=== PATIENT | male | born 1960 | race Caucasian/White ===

== ENCOUNTER → 2016-10-30 | Outpatient (CLI) | payer OTHER ==
[~2016-10-30] MED LIST: ASPI81TA28 PO; ATOR-22 PO; CARV6.252 PO; CODCAP; DAPA1TAB2 PO; FENO145T26 PO; GLC5 PO; HYDR-5688 PO; LIRA18IN SC; LISI-729 PO; LORA10CA2 PO; LSN5 PO; METF1000 PO; METF1TAB53 PO; MULT-106 PO; MULT-506 PO; OMEG10002 PO; OMEG10007 PO
[2016-10-30 17:07] LABS: URINE APPEARANCE CLEAR (CLEAR); URINE BILIRUBIN NEG (NEG); URINE COLOR YELLOW; URINE NITRITE NEG (NEG); URINE PH 6.5 (4.5-7.5); URINE SPECIFIC GRAVITY 1.031 (1.000-1.030); UROBILINOGEN NEG (NEG); ZZUR CULT IF INDIC CLEAN CATCH NO
[2016-10-30 17:22] LABS: MANUAL MICROSCOPIC REQUIRED? NO; REVIEW REQ? NO
[2016-10-30 17:30] LABS: ALKALINE PHOSPHATASE 99 U/L (45-117); ALT/SGPT 46 U/L (12-78); AST/SGOT 24 U/L (15-37); BLOOD UREA NITROGEN 9 mg/dl (7-18); CALCIUM 8.6 mg/dl (8.5-10.1); CARBON DIOXIDE 27 mmol/L (21-32); CHLORIDE 104 mmol/L (98-107); CHOLESTEROL 169 mg/dl (0-200); CHOLESTEROL/HDL RATIO 7.7; CREATININE 0.73 mg/dl (0.60-1.40); GLUCOSE 189 mg/dl (70-99); HDL CHOLESTEROL 22 mg/dl; PHOSPHORUS 3.1 mg/dl (2.5-4.9); POTASSIUM 4.3 mmol/L (3.5-5.1); SODIUM 139 mmol/L (136-145); TRIGLYCERIDES 815 mg/dl (0-150)
[2016-10-31 06:28] LABS: ESTIMATED AVERAGE GLUCOSE 140 mg/dl; HA1C FLAG Normal (Normal)
[2016-11-01 15:45] LABS: ALBUMIN 4.1 G/DL (3.8-4.8); GAMMA GLOBULIN 1.2 G/DL (0.8-1.7); TOTAL PROTEIN 7.1 G/DL (6.2-8.3)
== END | disposition home or self-care (01) ==
LOC: C.LABBC 14:10
PROVIDERS: ATTEND Internal Medicine Nephrology
DX: R80.9 Proteinuria, unspecified (principal); K76.0 Fatty (change of) liver, not elsewhere classified; E11.9 Type 2 diabetes mellitus without complications

== ENCOUNTER → 2016-12-07 | Day surgery (SDC) | payer OTHER ==
[2016-11-29 08:03] VITALS: BMI 33.0
[~2016-12-07] VITALS: Ht 177.8 cm; Wt 103.6 kg
[~2016-12-07] MED LIST changes: -CODCAP; -DAPA1TAB2 PO; +DAPA1TAB8 PO; +ENDOSCOPIC MARKER 5 ML SYR ONE; -GLC5 PO; +LIDOCAINE HCL 2% 2 ML VIAL (20MG/ML) ONE; -LSN5 PO; -METF1000 PO; +MIDAZOLAM HCL 1 MG/ML 2ML VIAL ONE; -MULT-106 PO; -OMEG10002 PO; +ONDANSETRON INJ 2 MG/ML 2 ML VIAL ONE; +PROPOFOL IV EMULSION 10 MG/ML 20 ML VIAL IV ONE; +SODIUM CHLORIDE 0.9% 500ML 500 ML IV ONE
[2016-12-07 13:42] VITALS: TEMP 36.7
[2016-12-07 13:51] VITALS: Ht 177.8 cm; Wt 103.6 kg
--- NOTE | 2016-12-07 16:32 | Discharge Instructions ---
Endoscopy Patient Instructions Date / Procedure(s) Performed Dec 07, 2016. Colonoscopy Allergy Information Coded Allergies: No Known Drug Allergy (Verified Allergy, Unknown, NKDA, 11/29/16) Discharge Date / Findings Dec 07, 2016. Recto-sigmoid mass Colon polyps Rectal polyp Diverticulosis Medication Instructions OK to resume all medications today as prescribed Reported Home Medications Medications Dose Route/Sig Max Daily Dose Days Date Category Victoza (Liraglutide) 18 Mg/3 Ml Inj 1 Dose SC QAM 11/29/16 Reported Multivitamin (Multivitamins) Tab 1 Tab PO QAM 11/29/16 Reported [place]-3 (Fish Oil) 1 Ea Cap 1 Cap PO BID 11/29/16 Reported Glucophage Ext Rel (Metformin Hcl) 1,000 Mg Tab 1,000 Mg PO BID 11/29/16 Reported Zestril (Lisinopril) 5 Mg Tab 5 Mg PO HS 11/29/16 Reported Farxiga (Dapagliflozin Propanediol) 10 Mg Tab 5 Mg PO QAM 11/29/16 Reported Coreg (Carvedilol) 6.25 Mg Tab 1 Tab PO BID 90 11/29/16 Reported Lipitor (Atorvastatin Calcium) 20 Mg Tab 20 Mg PO QAM 11/29/16 Reported Aspirin Ec (Aspirin) 81 Mg Tab 81 Mg PO QPM 04/21/15 Reported Provider Instructions Activity Restrictions - No exercising or heavy lifting for 24 hours. - Do not drink alcohol the day of the procedure. - Do not drive a car or operate machinery until the day after the procedure. - Do not make any important decisions or sign important papers in 24 hours after the procedure. Following Day: - Return to full activity which may include returning to work/school. Diet Start your diet with liquids and light foods (jello, soup, juice, toast). Then eat your usual diet if not nauseated. Treatment For Common After Affects For mild abdominal pain, bloating, or excessive gas: - Rest - Eat lightly - Lie on right side Follow-Up Information Follow-up with DR FERNANDO SHAKIH as scheduled Anesthesia Information What You Should Know You have had a procedure that required some medicine to reduce anxiety and discomfort. This treatment is called moderate sedation. After receiving the treatment, you may be sleepy, but you will be able to breathe on your own. The effects of the treatment may last for several hours. Follow these instructions along with Activity/Diet recommendations noted above: * Do NOT do anything where dizziness or clumsiness would be dangerous. * Rest quietly at home today, then you can be up and about tomorrow. * Have a responsible person stay with you the rest of today. * You may have had an I.V. today. If so, you may take the dressing off later today. Recommendations Call your doctor if: * Trouble breathing * Continuous vomiting for more than 24 hours * Temperature above 101 degrees * Severe abdominal pain or bloating * Pain not relieved by pain medicine ordered * There is increased drainage or redness from any incision * A large amount of rectal bleeding greater than 2-3 tablespoons. (If you had a polyp/s removed or have hemorrhoids, a small amount of blood - from the rectum is to be expected.) * You have any unanswered questions or concerns. IN THE EVENT OF A SERIOUS EMERGENCY, GO TO THE NEAREST EMERGENCY ROOM Your discharge instructions were prepared by provider Jensen Rosales. Patient Instructions Signature Page Eloy Michaels Patient (or Guardian) Signature/Date: I have read and understand the instructions given to me by my caregivers. Caregiver/RN/Doctor Signature/Date: The above-named patient and/or guardian has received patient instructions on this date. + Original Patient Signature Page (only) stays with chart. Please make copy for patient.
--- NOTE | 2016-12-07 16:32 | GI REPORT ---
Procedure Date: 12/07/2016 3:24 PM Procedure: Colonoscopy Indications: Screening for colorectal malignant neoplasm Medicines: Monitored Anesthesia Care Complications: No immediate complications. Estimated Blood Loss: Estimated blood loss: none. Procedure: Pre-Anesthesia Assessment: - Prior to the procedure, a History and Physical was performed, and patient medications and allergies were reviewed. The patient's tolerance of previous anesthesia was also reviewed. The risks and benefits of the procedure and the sedation options and risks were discussed with the patient. All questions were answered, and informed consent was obtained. Prior Anticoagulants: The patient has taken no previous anticoagulant or antiplatelet agents. ASA Grade Assessment: II - A patient with mild systemic disease. After reviewing the risks and benefits, the patient was deemed in satisfactory condition to undergo the procedure. After I obtained informed consent, the scope was passed under direct vision. Throughout the procedure, the patient's blood pressure, pulse, and oxygen saturations were monitored continuously. The scope was introduced through the anus and advanced to the cecum, identified by appendiceal orifice and ileocecal valve. The colonoscopy was performed without difficulty. The patient tolerated the procedure well. The quality of the bowel preparation was good. The ileocecal valve, appendiceal orifice, and rectum were photographed. Findings: Two sessile polyps were found in the rectum and in the descending colon. The polyps were 5 to 7 mm in size. These polyps were removed with a hot snare. Resection and retrieval were complete. A 14 mm polyp was found in the sigmoid colon. The polyp was pedunculated. The polyp was removed with a hot snare. Resection and retrieval were complete. An ulcerated non-obstructing medium-sized mass was found in the recto-sigmoid colon. The mass was non-circumferential. The mass measured four cm in length. In addition, its diameter measured fifteen mm. Oozing was present. This was biopsied with a cold forceps for histology. Area was tattooed with an injection of 4 mL of Danielle ink at the proximal and distal margin. Multiple small-mouthed diverticula were found in the sigmoid colon. Impression: - Two 5 to 7 mm polyps in the rectum and in the descending colon, removed with a hot snare. Resected and retrieved. - One 14 mm polyp in the sigmoid colon, removed with a hot snare. Resected and retrieved. - Likely malignant tumor in the recto-sigmoid colon. Biopsied. Tattooed. - Diverticulosis in the sigmoid colon. Recommendation: - Resume previous diet. - Continue present medications. - Repeat colonoscopy for surveillance based on pathology results. - Perform a CT scan (computed tomography) of chest with contrast, abdomen with contrast and pelvis with contrast at appointment to be scheduled. - Check hemogram with white blood cell count and platelets, electrolyte panel, PT/INR and CEA in the morning. Jensen Rosales, 12/07/2016 4:31:34 PM This report has been signed electronically. Note Initiated On: 12/07/2016 3:24 PM I attest to the content of the Intraoperative Record and orders documented therein, exceptions below
--- NOTE | 2016-12-07 16:33 | Endo History and Physical ---
History & Physical Date of Service: Dec 07, 2016. Chief Complaint: SCREENING FOR COLON CANCER Referring Physician: DR FENRANDO SHAIKH History of Present Illness 56 yo CM who presents for screening colonoscopy. Past Medical History Diabetes, Heart Disease, Hypertension Past Surgical History Hx Cardiac Surgery: No Hx Internal Defibrillator: No Hx Pacemaker: No Hx Abdominal Surgery: No Hx of Implantable Prosthesis: No Hx Post-Op Nausea and Vomiting: No Hx Cancer Surgery: No Hx Thoracic Surgery: No Hx Orthopedic: No Hx Urinary Tract Surgery: No Family History None Social History Smoking Status: Former Smoker Hx Substance Use: No Hx Alcohol Use: No Allergies Coded Allergies: No Known Drug Allergy (Verified Allergy, Unknown, NKDA, 11/29/16) Current Medications Reported Home Medications Medications Dose Route/Sig Max Daily Dose Days Date Category Victoza (Liraglutide) 18 Mg/3 Ml Inj 1 Dose SC QAM 11/29/16 Reported Multivitamin (Multivitamins) Tab 1 Tab PO QAM 11/29/16 Reported [place]-3 (Fish Oil) 1 Ea Cap 1 Cap PO BID 11/29/16 Reported Glucophage Ext Rel (Metformin Hcl) 1,000 Mg Tab 1,000 Mg PO BID 11/29/16 Reported Zestril (Lisinopril) 5 Mg Tab 5 Mg PO HS 11/29/16 Reported Farxiga (Dapagliflozin Propanediol) 10 Mg Tab 5 Mg PO QAM 11/29/16 Reported Coreg (Carvedilol) 6.25 Mg Tab 1 Tab PO BID 90 11/29/16 Reported Lipitor (Atorvastatin Calcium) 20 Mg Tab 20 Mg PO QAM 11/29/16 Reported Aspirin Ec (Aspirin) 81 Mg Tab 81 Mg PO QPM 04/21/15 Reported Vital Signs Weight (Kilograms): 103.64 Height (Feet): 5 Height (Inches): 10 Date Time Temp Pulse Resp B/P Pulse Ox O2 Delivery O2 Flow Rate FiO2 12/07/16 13:42 36.7 87 20 151/91 100 Room Air Physical Exam General Appearance: WD/WN, no apparent distress Respiratory/Chest: Auscultation: breath sounds normal Cardiovascular: Heart Auscultation: RRR Abdomen: Bowel Sounds: normal Inspection & Palpation: soft, non-distended, no tenderness, guarding & rebound Assessment and Plan Assessment: 56 yo CM who presents for screening colonoscopy. Plan: Proceed with colonoscopy.
[2016-12-07 16:57] VITALS: BP 114/70; PULSE 74; O2SAT 96
--- NOTE | 2016-12-07 17:48 | Anesthesiology Progress Note ---
Anesthesia Post Op Note Date & Time Dec 07, 2016 at 17:47 Vital Signs Pain Intensity: 0 Vital Signs Past 12 Hours Date Time Temp Pulse Resp B/P Pulse Ox O2 Delivery O2 Flow Rate FiO2 12/07/16 16:57 74 20 114/70 96 Room Air 12/07/16 16:42 82 20 116/66 96 Room Air 12/07/16 16:27 80 20 111/67 95 Nasal Cannula 2 12/07/16 13:42 36.7 87 20 151/91 100 Room Air Notes Mental Status: alert / awake / arousable, participated in evaluation Pt Amnestic to Procedure: Yes Nausea / Vomiting: adequately controlled Pain: adequately controlled Airway Patency, RR, SpO2: stable & adequate BP & HR: stable & adequate Hydration State: stable & adequate Anesthetic Complications: no major complications apparent
[2016-12-07 18:30] LABS: BASO % 0.4 %; BASO ABS # 0.03 K/uL (0-0.2); COMPLETE YES; EOS % 2.7 %; HEMATOCRIT 43.1 % (42-52); IG% 0.3 %; LYMPH ABS # 2.16 K/uL (1.2-3.4); MEAN CELL VOLUME 85.5 fL (80-100); MEAN CORPUSCULAR HEMOGLOBIN 31.5 pg (25-34); MEAN CORPUSCULAR HGB CONC 36.9 g/dl (32-36); MEAN PLATELET VOLUME 10.4 fL (7.4-10.4); MONO % 9.3 %; NEUT % 55.3 %; PLATELET COUNT 161 K/uL (130-400); RED BLOOD COUNT 5.04 M/uL (4.7-6.1); WHITE BLOOD COUNT 6.76 K/uL (4.8-10.8)
[2016-12-07 18:54] LABS: BUN/CREATININE RATIO 12.2 (10-20); CREATININE 0.71 mg/dl (0.60-1.40); POTASSIUM 4.2 mmol/L (3.5-5.1)
[2016-12-07 18:57] LABS: ALB/GLOB RATIO 0.9 (0.9-2)
== END | disposition home or self-care (01) ==
LOC: C.GI 13:18
PROVIDERS: ATTEND Internal Medicine
DX: C19 Malignant neoplasm of rectosigmoid junction (principal); D12.4 Benign neoplasm of descending colon; D12.5 Benign neoplasm of sigmoid colon; K57.30 Diverticulosis of large intestine without perforation or abscess without bleeding; E11.9 Type 2 diabetes mellitus without complications; I10 Essential (primary) hypertension; I51.9 Heart disease, unspecified; Z87.891 Personal history of nicotine dependence

== ENCOUNTER → 2016-12-18 | Outpatient (CLI) | payer OTHER ==
[~2016-12-18] MED LIST changes: -ENDOSCOPIC MARKER 5 ML SYR ONE; -FENO145T26 PO; -LIDOCAINE HCL 2% 2 ML VIAL (20MG/ML) ONE; -MIDAZOLAM HCL 1 MG/ML 2ML VIAL ONE; -ONDANSETRON INJ 2 MG/ML 2 ML VIAL ONE; +OPTIRAY 320 IV PRN; -PROPOFOL IV EMULSION 10 MG/ML 20 ML VIAL IV ONE; -SODIUM CHLORIDE 0.9% 500ML 500 ML IV ONE
--- NOTE | 2016-12-18 12:13 | DIAGNOSTIC IMAGING REPORT ---
ABDOMEN AND PELVIS CT WITH IV AND ORAL CONTRAST CT DOSE: 1513.77 mGy.cm HISTORY: Carcinoma C19 Rectosigmoid cancer TECHNIQUE: Multiaxial CT images of the abdomen and pelvis were performed following the use of intravenous and oral contrast. COMPARISON STUDY: None. FINDINGS: Lung bases are clear. Liver is uniform throughout. Spleen and kidneys enhance uniformly. Pancreas is unremarkable. Bowel pattern within the abdomen is nonobstructive. The pelvis shows mild thickening of the wall of the rectosigmoid. There is no evidence for abscess collection or obstruction. Bladder is midline. IMPRESSION: Mild wall thickening of the rectosigmoid. Otherwise negative abdomen and pelvis. Electronically signed by: Derian Lujan M.D. 12/18/2016 12:11 PM Dictated Date/Time: 12/18/2016 12:08 PM
--- NOTE | 2016-12-18 12:27 | DIAGNOSTIC IMAGING REPORT ---
CHEST CT WITH CONTRAST CT DOSE: HISTORY: Rectosigmoid mass. Assess for metastatic disease. TECHNIQUE: Multiaxial CT images of the chest were performed following the intravenous administration of contrast. COMPARISON: None. FINDINGS: The central airways are patent. No pleural effusions. No pneumothorax. Small patchy groundglass density within the left lung apex adjacent to the aortic arch on image 64 favors mild scarring or atelectasis. No suspicious pulmonary nodules. No mediastinal or hilar lymphadenopathy. Normal caliber thoracic aorta. The heart is normal in size. Subcentimeter right anterior diaphragmatic lymph nodes do not meet CT criteria for pathologic involvement. No lytic or blastic osseous lesions. IMPRESSION: No evidence for metastatic disease within the chest Electronically signed by: Osmar Willis M.D. 12/18/2016 12:25 PM Dictated Date/Time: 12/18/2016 12:18 PM
== END | disposition home or self-care (01) ==
LOC: C.CTS 09:39
PROVIDERS: ATTEND Internal Medicine
DX: C19 Malignant neoplasm of rectosigmoid junction (principal)

== ENCOUNTER → 2016-12-30 | Outpatient (CLI) | payer OTHER ==
[~2016-12-30] MED LIST changes: -OPTIRAY 320 IV PRN
== END | disposition home or self-care (01) ==
LOC: C.CPL 11:10
PROVIDERS: ATTEND Surgery
DX: C19 Malignant neoplasm of rectosigmoid junction (principal); E11.9 Type 2 diabetes mellitus without complications; I10 Essential (primary) hypertension

== ENCOUNTER 2017-01-04 07:57 | Inpatient (IN) | payer OTHER ==
[2016-12-25 09:48] VITALS: BMI 33.0
[2017-01-04] VITALS (9 sets, daily range): BP systolic 122–144; BP diastolic 78–87; PULSE 79–105; TEMP 36.6–37.1; O2SAT 94–96; Ht 177.8 cm; Wt 103.6 kg
[~2017-01-04] VITALS: Ht 177.8 cm; Wt 103.6 kg
[~2017-01-04 07:57] MED LIST changes: +CEFAZOLIN 2000 MG/60 ML D5W IV SCH; +HEPARIN SOD 5000 UNIT/0.5 ML CARP SQ SCH; -HYDR-5688 PO; +LACTATED RINGER'S 1000ML 1,000 ML IV SCH; -LORA10CA2 PO
[2017-01-04] MEDS ORDERED: GLYCOPYRROLATE INJ 0.2 MG/ML VIAL ONE ×2 (08:43→13:41)
[2017-01-04] MEDS ORDERED: LIDOCAINE HCL 2% 2 ML VIAL (20MG/ML) ONE (08:43)
[2017-01-04] MEDS ORDERED: FENTANYL CITRATE INJ 50 MCG/1 ML 2 ML VIAL ONE (08:43)
[2017-01-04] MEDS ORDERED: NEOSTIGMINE METHYLSULFATE 5 MG/5 ML SYR ONE (08:43)
[2017-01-04] MEDS ORDERED: DEXAMETHASONE SOD INJ 4 MG/ML VIAL ONE (08:43)
[2017-01-04] MEDS ORDERED: ONDANSETRON INJ 2 MG/ML 2 ML VIAL ONE ×2 (08:43→13:37)
[2017-01-04] MEDS ORDERED: MIDAZOLAM HCL 1 MG/ML 2ML VIAL ONE (08:43)
[2017-01-04] MEDS ORDERED: ROCURONIUM BROMIDE 10 MG/ML 5 ML VIAL ONE ×3 (08:43→12:28)
[2017-01-04] MEDS ORDERED: PROPOFOL IV EMULSION 10 MG/ML 20 ML VIAL IV ONE (08:43)
[2017-01-04] MEDS ORDERED: NURSING VERBAL MED ORDER STA (09:02)
[2017-01-04] MEDS ORDERED: MoRPHine SULFATE 10 MG/ML CARP/VIAL IV PRN (09:15)
[2017-01-04] MEDS ORDERED: ONDANSETRON INJ 2 MG/ML 2 ML VIAL IV PRN ×2 (09:15→13:45)
[2017-01-04] MEDS ORDERED: FENTANYL CITRATE INJ 50 MCG/1 ML 2 ML VIAL IV PRN (09:15)
[2017-01-04] MEDS ORDERED: CARVEDILOL 6.25 MG TAB PO ONE (09:15)
[2017-01-04] MEDS ORDERED: ATROPINE SULFATE 0.1 MG/ML 5ML SYR IV PRN (09:15)
[2017-01-04] MEDS ORDERED: EpHEDrine SULFATE INJ 50 MG/ML AMP IV PRN (09:15)
--- NOTE | 2017-01-04 09:32 | History & Physical Bridge Note ---
H&P Re-Evaluation Bridge Note: I have examined the patient, reviewed the History & Physical and in the interval since the performance of the History & Physical I have noted the following changes of clinical significance: No changes noted
[2017-01-04] MEDS ORDERED: BUPIVACAINE/EPINEPHRINE 0.5% MPF 1:200,000 30 ML VIAL ONE (09:33)
[2017-01-04] MEDS ORDERED: HYDROmorphone INJ 2 MG/ML SYR/VIAL ONE (09:50)
[2017-01-04] MEDS ORDERED: EpHEDrine SULFATE INJ 50 MG/ML AMP ONE (10:20)
[2017-01-04] MEDS ORDERED: PHENYLEPHRINE 100MCG/ML 5ML SYR ONE (10:23)
[2017-01-04] MEDS ORDERED: NALOXONE HCL 0.4 MG/1 ML VIAL/CARP IV PRN (13:45)
[2017-01-04] MEDS ORDERED: GLUCAGON FOR INJ 1 MG VIAL SQ PRN (13:45)
[2017-01-04] MEDS ORDERED: DEXTROSE 50% 50 ML SYR IV PRN (13:45)
[2017-01-04] MEDS ORDERED: GLUCOSE 40% GEL 15 GM TUBE PO PRN (13:45)
[2017-01-04] MEDS ORDERED: GLUCOSE 10 TABS/TUBE PO PRN (13:45)
[2017-01-04] MEDS: HYDROmorphone HCL 0.5MG/ML 50 ML CASSETTE IV PRN ×3 (14:33→22:54)
--- NOTE | 2017-01-04 15:22 | Anesthesiology Progress Note ---
Anesthesia Post Op Note Date & Time January 04, 2017 at 15:22 Vital Signs Pain Intensity: 0 Vital Signs Past 12 Hours Date Time Temp Pulse Resp B/P Pulse Ox O2 Delivery O2 Flow Rate FiO2 01/04/17 15:07 95 13 01/04/17 15:07 95 13 95 01/04/17 15:05 131/81 01/04/17 15:02 94 13 95 01/04/17 15:02 94 13 01/04/17 15:00 139/90 01/04/17 14:57 94 12 01/04/17 14:57 93 12 95 01/04/17 14:57 36.9 90 16 139/90 97 Nasal Cannula 2 01/04/17 14:55 135/86 01/04/17 14:52 92 14 01/04/17 14:52 92 14 94 01/04/17 14:50 134/85 01/04/17 14:47 96 13 01/04/17 14:47 96 13 95 01/04/17 14:45 131/86 01/04/17 14:42 96 15 01/04/17 14:42 96 15 92 01/04/17 14:41 97 16 01/04/17 14:41 97 16 92 01/04/17 14:40 135/85 01/04/17 14:36 92 11 01/04/17 14:36 92 11 98 01/04/17 14:35 133/82 01/04/17 14:31 93 15 01/04/17 14:31 93 15 96 01/04/17 14:30 116/85 01/04/17 14:26 95 16 94 01/04/17 14:26 95 16 01/04/17 14:25 134/82 01/04/17 14:21 96 16 93 01/04/17 14:21 96 16 01/04/17 14:20 128/83 01/04/17 14:17 99 19 01/04/17 14:17 98 19 96 01/04/17 14:15 145/87 01/04/17 14:12 102 17 95 01/04/17 14:12 102 17 01/04/17 14:10 132/88 01/04/17 14:07 99 14 01/04/17 14:07 99 14 129/89 97 01/04/17 14:07 36.7 99 14 129/89 97 Mask 10 01/04/17 08:43 36.6 79 20 122/86 96 Room Air Notes Mental Status: alert / awake / arousable, participated in evaluation Pt Amnestic to Procedure: Yes Nausea / Vomiting: adequately controlled Pain: adequately controlled Airway Patency, RR, SpO2: stable & adequate BP & HR: stable & adequate Hydration State: stable & adequate Anesthetic Complications: no major complications apparent
[2017-01-04] MEDS ORDERED: INSULIN ASPART 100 UNITS/ML 3 ML PEN SC SCH (16:00)
[2017-01-04] MEDS: LACTATED RINGER'S 1000ML 1,000 ML IV SCH (17:13)
[2017-01-04] MEDS: CEFAZOLIN SOD 2000 MG in DEXTROSE 5% 50ML IV SCH (17:14)
[2017-01-04] MEDS: SODIUM CHLORIDE 0.9% 1000ML 1,000 ML IV SCH (17:14)
[2017-01-04] MEDS ORDERED: CEFAZOLIN IV 2,000 MG/60 ML D5W IV SCH (18:00)
--- NOTE | 2017-01-04 18:13 | OPERATIVE REPORT ---
DATE OF OPERATION: 01/04/2017 PREOPERATIVE DIAGNOSIS: Colorectal carcinoma. POSTOPERATIVE DIAGNOSIS: Same. PROCEDURE PERFORMED: Laparoscopy with conversion to an open procedures low anterior resection with primary anastomosis and intraoperative sigmoidoscopy. SURGEON: [place] DO MOBILE DEVICE DEVELOPER: Dario Turner PA-C ESTIMATED BLOOD LOSS: Approximately 100 mL. COMPLICATIONS: No immediate. ANESTHESIA: General. DISPOSITION: The patient tolerated the procedure well. DESCRIPTION OF PROCEDURE: After informed consent was obtained, the patient was taken to the operating suite and placed in supine position. After successful intubation, a Boudreaux catheter was placed and the abdomen and perineum were sterilely prepped and draped in usual fashion. We began with a periumbilical incision with an 11 blade scalpel and carried it down through the soft tissue using electrocautery. The anterior rectus fascia was opened using electrocautery and two #0 Vicryl stay sutures were placed. Peritoneum was elevated with hemostats and incised under direct vision using a Metzenbaum scissor. A finger sweep was performed. A 12 mm Liliam trocar was placed. The abdomen was insufflated to 18 mmHg. Laparoscope was inserted. A right lower quadrant 12 mm trocar and a right mid abdominal 5 mm trocar were initially placed. Shortly thereafter, we placed a left lower quadrant 5 mm trocar as well. I should mention that after intubation the patient had been placed in a low lithotomy position in the [facility]. We began by examining the sigmoid colon. There were some adhesive bands to the left side wall which we took down using the Harmonic scalpel. After we did this, we then mobilized the sigmoid colon and worked towards the rectosigmoid region. The blue ink tattoo was very difficult to see. We were eventually able find a small spot on the left lateral side. It was unclear to us whether this was a proximal or distal ink dakota as dictated by gastroenterology. Nonetheless, we went ahead and created a small window in the sigmoid mesentery and transected the colon well away from the tattoo dakota using VALENTIN purple cartridge stapler. We then used blunt dissection as well as Harmonic scalpel to take down the lateral peritoneal reflections on both sides heading down towards the rectosigmoid junction. We did use both VALENTIN 60 mm gleason cartridge as well as Harmonic scalpel to take down the mesentery, staying as low as possible so that we could get good lymph node resection. We continued distally down towards the rectum and we were able to come around anteriorly and take down the peritoneal reflection and continue working down towards the rectum itself. After doing all this and mobilizing the entire rectosigmoid, we realized that the mesentery and bowel were going to be too thick to allow incorporation of the laparoscopic VALENTIN for transection. This coupled with the fact that we were unclear of the exact tumor location in the tattoo gaitan, we decided at this point to go ahead and make a small laparotomy. We took out the laparoscopic equipment and made a small lower midline incision with a 10 blade scalpel and used electrocautery to carry it down through the soft tissue and opened the fascia. We did use a Bookwalter retractor. Once we were able to manually palpate the lesion, it was actually much more distal than we had anticipated. It was really more of a rectal lesion than a sigmoid lesion. We continued to take down the lateral pedicles using Harmonic scalpel. We were able to get in the presacral fascia and bluntly dissect trying not to touch the tumor any more than necessary. At this point, we got a colonoscope and performed the intraoperative sigmoidoscopy. We were able to see the rather large lesion. Because of his body habitus and the low nature, this did make the dissection somewhat difficult. We continued to dissect anteriorly and laterally as well as posteriorly the whole way down as far as we could possibly see from the abdominal portion. Eventually, I was able to use a laparoscopic VALENTIN with multiple purple cartridge rod to transect the rectum distal to the palpable mass. Again because of his body habitus and the location of lesion, it really was impossible to get any more distal than this without probably committing him to an APR with a permanent colostomy. We had not discussed this with him nor we were prepared to perform this. We were able to remove the specimen and I opened it on the back table. We did have mucosal margins distal to the mass, although certainly microscopically, it was unclear whether these are positive. Nonetheless, it really would be impossible at this point to resect more distally, again without performing some APR type of procedure. He will require completion APR should the margins be positive for curative resection. Nonetheless, we did have visible mucosal margins. We only opened it on the back table, probably about 2-2.5 cm. At this point, we thoroughly irrigated the pelvis. We prepared the proximal colon and using sizers estimated that we would need a 28 circular EEA. We took off the staple line and placed a 2-0 silk pursestring. We placed the anvil into the colotomy and then secured the pursestring. We then were able to place the EEA handle into the small rectal stump. Visualization was difficult, but we were eventually able to get the spike to deploy slightly anteriorly to the staple line. We then connected the handle to the anvil and secured them together prior to creating a circular colorectal anastomosis. When we removed the handle, both donuts were intact and we did send the distal one for margins. We then submerged the anastomosis in water and I clamped the proximal colon and we performed a sigmoidoscopy once again. The anastomosis appeared intact without bleeding. There was no evidence of any air leak. There was no evidence of any residual tumor. We then irrigated the pelvis a final time. I placed a #10 flat Jr-Orona drain into the pelvis and brought out through one of the previous port sites. There was adequate hemostasis at the end of this procedure. We closed the fascia using #1 PDS starting at either pole and running them to the midline. We irrigated the soft tissue and then closed the skin using skin rod. The drain was secured using 0 Vicryl. The laparoscopic trocar sites were closed using rod as well. A silver dressing was applied. The patient was awakened, extubated, and transferred to recovery in stable condition. I attest to the content of the Intraoperative Record and any orders documented therein. Any exceptio ns are noted below.
[2017-01-04] MEDS: CARVEDILOL 6.25 MG TAB PO SCH (21:08)
[2017-01-04] MEDS ORDERED: NURSING VERBAL MED ORDER ONE (21:15)
[2017-01-05] VITALS (10 sets, daily range): BP systolic 117–171; BP diastolic 72–96; PULSE 83–99; TEMP 36.9–37.8; O2SAT 90–95
[2017-01-05] MEDS: INSULIN ASPART 100 UNITS/ML 3 ML PEN SC SCH ×4 (00:25→18:00)
[2017-01-05] MEDS: LACTATED RINGER'S 1000ML 1,000 ML IV SCH ×4 (00:26→20:00)
[2017-01-05] MEDS: CEFAZOLIN SOD 2000 MG in DEXTROSE 5% 50ML IV SCH ×2 (02:59→10:37)
[2017-01-05 07:13] LABS: BASO % 0.1 %; BASO ABS # 0.01 K/uL (0-0.2); COMPLETE YES; EOS % 0.2 %; HEMATOCRIT 39.4 % (42-52); IG% 0.1 %; LYMPH % 16.9 %; LYMPH ABS # 1.81 K/uL (1.2-3.4); MEAN CELL VOLUME 87.4 fL (80-100); MEAN CORPUSCULAR HEMOGLOBIN 30.4 pg (25-34); MEAN CORPUSCULAR HGB CONC 34.8 g/dl (32-36); MEAN PLATELET VOLUME 10.6 fL (7.4-10.4); MONO % 10.7 %; PLATELET COUNT 170 K/uL (130-400); RED BLOOD COUNT 4.51 M/uL (4.7-6.1)
[2017-01-05] MEDS: HYDROmorphone HCL 0.5MG/ML 50 ML CASSETTE IV PRN ×3 (07:18→22:52)
--- NOTE | 2017-01-05 07:39 | Surgery Progress Note ---
Surgery Progress Note Date of Service January 05, 2017. Subjective Post OP Day: 1 + diet (sips), + feeling well, No flatus, No nausea Objective Vital Signs: Date Time Temp Pulse Resp B/P Pulse Ox O2 Delivery O2 Flow Rate FiO2 01/05/17 05:41 93 Room Air 01/05/17 04:00 37.0 90 16 117/72 95 Nasal Cannula 2.0 01/04/17 23:27 36.6 96 17 124/81 94 Nasal Cannula 2.0 01/04/17 23:15 Nasal Cannula 2.0 01/04/17 18:50 37.0 100 16 138/87 94 01/04/17 18:26 96 Nasal Cannula 2.0 01/04/17 18:22 96 Nasal Cannula 2.0 01/04/17 17:31 37.1 105 16 128/79 95 Nasal Cannula 2.0 01/04/17 16:30 37.0 99 16 144/84 95 Nasal Cannula 2.0 01/04/17 16:00 37.1 98 16 138/86 96 Nasal Cannula 2.0 01/04/17 15:30 36.9 96 16 127/78 96 Nasal Cannula 2.0 01/04/17 15:20 126/84 01/04/17 15:18 96 14 95 01/04/17 15:18 96 14 01/04/17 15:15 132/84 01/04/17 15:13 96 12 01/04/17 15:13 96 12 95 01/04/17 15:10 122/88 01/04/17 15:08 96 13 95 01/04/17 15:08 96 13 01/04/17 15:07 95 13 01/04/17 15:07 95 13 95 01/04/17 15:05 131/81 01/04/17 15:02 94 13 95 01/04/17 15:02 94 13 01/04/17 15:00 139/90 01/04/17 14:57 94 12 01/04/17 14:57 93 12 95 01/04/17 14:57 36.9 90 16 139/90 97 Nasal Cannula 2 01/04/17 14:55 135/86 01/04/17 14:52 92 14 01/04/17 14:52 92 14 94 01/04/17 14:50 134/85 01/04/17 14:47 96 13 01/04/17 14:47 96 13 95 01/04/17 14:45 131/86 01/04/17 14:42 96 15 01/04/17 14:42 96 15 92 01/04/17 14:41 97 16 01/04/17 14:41 97 16 92 01/04/17 14:40 135/85 01/04/17 14:36 92 11 01/04/17 14:36 92 11 98 01/04/17 14:35 133/82 01/04/17 14:31 93 15 01/04/17 14:31 93 15 96 01/04/17 14:30 116/85 01/04/17 14:26 95 16 94 01/04/17 14:26 95 16 01/04/17 14:25 134/82 01/04/17 14:21 96 16 93 01/04/17 14:21 96 16 01/04/17 14:20 128/83 01/04/17 14:17 99 19 01/04/17 14:17 98 19 96 01/04/17 14:15 145/87 01/04/17 14:12 102 17 95 01/04/17 14:12 102 17 01/04/17 14:10 132/88 01/04/17 14:07 99 14 01/04/17 14:07 99 14 129/89 97 01/04/17 14:07 36.7 99 14 129/89 97 Mask 10 01/04/17 08:43 36.6 79 20 122/86 96 Room Air Physical Exam: RC drainage (25 cc), urine output (950) Abdomen: soft, + distended (minimal) Incision(s): intact (dressing) Laboratory Results: Results Past 24 Hours Test 01/04/17 08:40 01/04/17 14:28 01/04/17 14:31 01/04/17 16:18 Range/Units Bedside Glucose 181 252 252 70-99 mg/dl Creatinine 1.00 0.60-1.40 mg/dl Est Creatinine Clear Calc Drug Dose 101.8 ml/min Estimated GFR () 98.5 Estimated GFR (Non- 84.9 Test 01/04/17 16:45 01/04/17 20:42 01/04/17 23:56 01/05/17 06:34 Range/Units Bedside Glucose 254 204 184 70-99 mg/dl White Blood Count 10.70 4.8-10.8 K/uL Red Blood Count 4.51 4.7-6.1 M/uL Hemoglobin 13.7 14.0-18.0 g/dL Hematocrit 39.4 42-52 % Mean Corpuscular Volume 87.4 80-100 fL Mean Corpuscular Hemoglobin 30.4 25-34 pg Mean Corpuscular Hemoglobin Concent 34.8 32-36 g/dl Platelet Count 170 130-400 K/uL Mean Platelet Volume 10.6 7.4-10.4 fL Neutrophils (%) (Auto) 72.0 % Lymphocytes (%) (Auto) 16.9 % Monocytes (%) (Auto) 10.7 % Eosinophils (%) (Auto) 0.2 % Basophils (%) (Auto) 0.1 % Neutrophils # (Auto) 7.71 1.4-6.5 K/uL Lymphocytes # (Auto) 1.81 1.2-3.4 K/uL Monocytes # (Auto) 1.14 0.11-0.59 K/uL Eosinophils # (Auto) 0.02 0-0.5 K/uL Basophils # (Auto) 0.01 0-0.2 K/uL RDW Standard Deviation 43.7 36.4-46.3 fL RDW Coefficient of Variation 13.5 11.5-14.5 % Immature Granulocyte % (Auto) 0.1 % Immature Granulocyte # (Auto) 0.01 0.00-0.02 K/uL Assessment & Plan s/p LAR UOP good, would keep canas for today given low resection cont [employer]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
[2017-01-05 07:48] LABS: BUN/CREATININE RATIO 20.2 (10-20); CALCIUM 8.8 mg/dl (8.5-10.1); CREATININE 0.84 mg/dl (0.60-1.40)
--- NOTE | 2017-01-05 08:09 | Anesthesiology Progress Note ---
Anesthesia Post Op Note Date & Time January 05, 2017 at 08:10 Vital Signs Pain Intensity: 0.0 Vital Signs Past 12 Hours Date Time Temp Pulse Resp B/P Pulse Ox O2 Delivery O2 Flow Rate FiO2 01/05/17 07:37 36.9 89 17 118/77 93 Room Air 01/05/17 05:41 93 Room Air 01/05/17 04:00 37.0 90 16 117/72 95 Nasal Cannula 2.0 01/04/17 23:27 36.6 96 17 124/81 94 Nasal Cannula 2.0 01/04/17 23:15 Nasal Cannula 2.0 Notes Mental Status: alert / awake / arousable, participated in evaluation Pt Amnestic to Procedure: Yes Nausea / Vomiting: adequately controlled Pain: adequately controlled Airway Patency, RR, SpO2: stable & adequate BP & HR: stable & adequate Hydration State: stable & adequate Anesthetic Complications: no major complications apparent
[2017-01-05] MEDS: PANTOprazole INJ 40 MG in SYRINGE 0 ML IV SCH (09:28)
[2017-01-05] MEDS: CARVEDILOL 6.25 MG TAB PO SCH ×2 (09:29→20:41)
[2017-01-05] MEDS: ENOXAPARIN 40 MG/0.4 ML SYR SQ SCH (09:29)
[2017-01-05] MEDS: SODIUM CHLORIDE 0.9% 1000ML 1,000 ML IV SCH (12:55)
[2017-01-05] MEDS ORDERED: NURSING VERBAL MED ORDER ONE (22:00)
[2017-01-05] MEDS ORDERED: ACETAMINOPHEN 325 MG TAB PO PRN (22:15)
[2017-01-06] VITALS (7 sets, daily range): BP systolic 118–161; BP diastolic 62–90; PULSE 83–100; TEMP 37–38; O2SAT 92
[2017-01-06] MEDS: INSULIN ASPART 100 UNITS/ML 3 ML PEN SC SCH ×4 (00:02→18:14)
[2017-01-06] MEDS: LACTATED RINGER'S 1000ML 1,000 ML IV SCH ×4 (01:50→21:12)
[2017-01-06 06:11] LABS: BASO % 0.2 %; BASO ABS # 0.02 K/uL (0-0.2); COMPLETE YES; EOS % 0.4 %; HEMATOCRIT 38.2 % (42-52); IG% 0.2 %; LYMPH % 15.9 %; LYMPH ABS # 1.51 K/uL (1.2-3.4); MONO % 13.2 %; NEUT % 70.1 %; PLATELET COUNT 153 K/uL (130-400); RED BLOOD COUNT 4.34 M/uL (4.7-6.1); WHITE BLOOD COUNT 9.51 K/uL (4.8-10.8)
[2017-01-06 06:42] LABS: BUN/CREATININE RATIO 19.6 (10-20); CREATININE 0.79 mg/dl (0.60-1.40)
[2017-01-06] MEDS: HYDROmorphone HCL 0.5MG/ML 50 ML CASSETTE IV PRN ×3 (06:48→19:35)
[2017-01-06] MEDS: PANTOprazole INJ 40 MG in SYRINGE 0 ML IV SCH (07:54)
[2017-01-06] MEDS: ENOXAPARIN 40 MG/0.4 ML SYR SQ SCH (07:54)
[2017-01-06] MEDS: CARVEDILOL 6.25 MG TAB PO SCH ×2 (09:46→21:12)
--- NOTE | 2017-01-06 11:48 | Surgery Progress Note ---
Surgery Progress Note Date of Service January 06, 2017. Subjective Post OP Day: 2 + pain controlled, No bowel movement, No flatus, No nausea, No vomiting Objective Vital Signs: Date Time Temp Pulse Resp B/P Pulse Ox O2 Delivery O2 Flow Rate FiO2 01/06/17 11:33 38.0 96 12 118/62 92 Room Air 01/06/17 08:57 92 Room Air 01/06/17 07:43 37.5 100 14 161/90 92 Room Air 01/06/17 07:40 Room Air 01/06/17 03:47 37.2 100 16 156/85 92 Room Air 01/05/17 23:25 Room Air 01/05/17 23:25 153/81 01/05/17 22:58 37.3 97 18 171/96 94 Room Air 01/05/17 20:44 37.3 01/05/17 20:26 37.8 99 16 158/83 90 Room Air 01/05/17 17:08 37.0 01/05/17 16:30 Room Air 01/05/17 15:14 37.7 83 16 137/73 93 Room Air Physical Exam: RC drainage (95 cc yesterday, 70 cc last shift, serosanguinous) Abdomen: non distended, soft, + abnormal bowel sounds (some present but decreased) Incision(s): clean, dry, intact, no erythema Laboratory Results: Results Past 24 Hours Test 01/05/17 11:54 01/05/17 18:08 01/05/17 23:47 01/06/17 05:18 Range/Units Bedside Glucose 209 136 162 70-99 mg/dl White Blood Count 9.51 4.8-10.8 K/uL Red Blood Count 4.34 4.7-6.1 M/uL Hemoglobin 13.0 14.0-18.0 g/dL Hematocrit 38.2 42-52 % Mean Corpuscular Volume 88.0 80-100 fL Mean Corpuscular Hemoglobin 30.0 25-34 pg Mean Corpuscular Hemoglobin Concent 34.0 32-36 g/dl Platelet Count 153 130-400 K/uL Mean Platelet Volume 10.0 7.4-10.4 fL Neutrophils (%) (Auto) 70.1 % Lymphocytes (%) (Auto) 15.9 % Monocytes (%) (Auto) 13.2 % Eosinophils (%) (Auto) 0.4 % Basophils (%) (Auto) 0.2 % Neutrophils # (Auto) 6.66 1.4-6.5 K/uL Lymphocytes # (Auto) 1.51 1.2-3.4 K/uL Monocytes # (Auto) 1.26 0.11-0.59 K/uL Eosinophils # (Auto) 0.04 0-0.5 K/uL Basophils # (Auto) 0.02 0-0.2 K/uL RDW Standard Deviation 42.7 36.4-46.3 fL RDW Coefficient of Variation 13.2 11.5-14.5 % Immature Granulocyte % (Auto) 0.2 % Immature Granulocyte # (Auto) 0.02 0.00-0.02 K/uL Sodium Level 140 136-145 mmol/L Potassium Level 4.0 3.5-5.1 mmol/L Chloride Level 104 98-107 mmol/L Carbon Dioxide Level 31 21-32 mmol/L Anion Gap 5.0 3-11 mmol/L Blood Urea Nitrogen 16 7-18 mg/dl Creatinine 0.79 0.60-1.40 mg/dl Est Creatinine Clear Calc Drug Dose 128.9 ml/min Estimated GFR () 118.0 Estimated GFR (Non- 101.8 BUN/Creatinine Ratio 19.6 10-20 Random Glucose 151 70-99 mg/dl Calcium Level 9.0 8.5-10.1 mg/dl Test 01/06/17 05:56 Range/Units Bedside Glucose 174 70-99 mg/dl Assessment & Plan S/P LAR for rectosigmoid carcinoma Stable Peristalsis not yet returned Continue sips and chips for now Encouraged ambulation
[2017-01-06] MEDS: SODIUM CHLORIDE 0.9% 1000ML 1,000 ML IV SCH (13:41)
[2017-01-07] VITALS (8 sets, daily range): BP systolic 137–174; BP diastolic 72–98; PULSE 81–86; TEMP 36.8–37.4; O2SAT 93–96
[2017-01-07] MEDS: INSULIN ASPART 100 UNITS/ML 3 ML PEN SC SCH ×4 (00:46→18:15)
[2017-01-07] MEDS: LACTATED RINGER'S 1000ML 1,000 ML IV SCH ×4 (03:49→23:46)
[2017-01-07 05:58] LABS: BASO % 0.2 %; BASO ABS # 0.02 K/uL (0-0.2); COMPLETE YES; EOS % 1.3 %; HEMATOCRIT 36.3 % (42-52); IG% 0.2 %; LYMPH % 16.2 %; LYMPH ABS # 1.34 K/uL (1.2-3.4); MEAN CELL VOLUME 87.5 fL (80-100); MEAN CORPUSCULAR HEMOGLOBIN 29.9 pg (25-34); MEAN CORPUSCULAR HGB CONC 34.2 g/dl (32-36); MEAN PLATELET VOLUME 9.8 fL (7.4-10.4); MONO % 11.3 %; NEUT % 70.8 %; PLATELET COUNT 137 K/uL (130-400); RED BLOOD COUNT 4.15 M/uL (4.7-6.1); WHITE BLOOD COUNT 8.29 K/uL (4.8-10.8)
[2017-01-07 06:25] LABS: BUN/CREATININE RATIO 21.4 (10-20); CALCIUM 8.9 mg/dl (8.5-10.1); CREATININE 0.68 mg/dl (0.60-1.40); POTASSIUM 3.9 mmol/L (3.5-5.1)
[2017-01-07] MEDS: HYDROmorphone HCL 0.5MG/ML 50 ML CASSETTE IV PRN ×3 (07:19→15:03)
[2017-01-07] MEDS: PANTOprazole INJ 40 MG in SYRINGE 0 ML IV SCH (08:21)
[2017-01-07] MEDS: CARVEDILOL 6.25 MG TAB PO SCH ×2 (08:21→21:18)
[2017-01-07] MEDS: ENOXAPARIN 40 MG/0.4 ML SYR SQ SCH (08:21)
[2017-01-07] MEDS: SODIUM CHLORIDE 0.9% 1000ML 1,000 ML IV SCH (13:09)
--- NOTE | 2017-01-07 15:56 | Surgery Progress Note ---
Surgery Progress Note Date of Service January 07, 2017. Subjective Post OP Day: 3 + flatus, No bowel movement, No nausea, No vomiting Objective Vital Signs: Date Time Temp Pulse Resp B/P Pulse Ox O2 Delivery O2 Flow Rate FiO2 01/07/17 15:03 36.9 84 16 160/91 96 Room Air 01/07/17 12:04 36.9 82 18 168/84 93 Room Air 01/07/17 07:40 Room Air 01/07/17 07:40 155/85 01/07/17 07:00 37.2 85 16 174/98 93 Room Air 01/07/17 03:00 37.4 86 16 151/74 95 Room Air 01/06/17 23:59 Room Air 01/06/17 22:52 37.0 83 16 156/76 92 Room Air 01/06/17 19:31 37.8 93 16 157/88 92 Room Air 01/06/17 16:00 Room Air Physical Exam: RC drainage (190 cc yesterday, 65 cc first 2 shifts today, serous) Abdomen: normal bowel sounds, non distended, soft Incision(s): clean, dry, intact, no erythema Laboratory Results: Results Past 24 Hours Test 01/06/17 18:06 01/07/17 00:14 01/07/17 05:27 01/07/17 06:03 Range/Units Bedside Glucose 203 157 160 70-99 mg/dl White Blood Count 8.29 4.8-10.8 K/uL Red Blood Count 4.15 4.7-6.1 M/uL Hemoglobin 12.4 14.0-18.0 g/dL Hematocrit 36.3 42-52 % Mean Corpuscular Volume 87.5 80-100 fL Mean Corpuscular Hemoglobin 29.9 25-34 pg Mean Corpuscular Hemoglobin Concent 34.2 32-36 g/dl Platelet Count 137 130-400 K/uL Mean Platelet Volume 9.8 7.4-10.4 fL Neutrophils (%) (Auto) 70.8 % Lymphocytes (%) (Auto) 16.2 % Monocytes (%) (Auto) 11.3 % Eosinophils (%) (Auto) 1.3 % Basophils (%) (Auto) 0.2 % Neutrophils # (Auto) 5.86 1.4-6.5 K/uL Lymphocytes # (Auto) 1.34 1.2-3.4 K/uL Monocytes # (Auto) 0.94 0.11-0.59 K/uL Eosinophils # (Auto) 0.11 0-0.5 K/uL Basophils # (Auto) 0.02 0-0.2 K/uL RDW Standard Deviation 41.9 36.4-46.3 fL RDW Coefficient of Variation 13.0 11.5-14.5 % Immature Granulocyte % (Auto) 0.2 % Immature Granulocyte # (Auto) 0.02 0.00-0.02 K/uL Sodium Level 141 136-145 mmol/L Potassium Level 3.9 3.5-5.1 mmol/L Chloride Level 102 98-107 mmol/L Carbon Dioxide Level 31 21-32 mmol/L Anion Gap 8.0 3-11 mmol/L Blood Urea Nitrogen 15 7-18 mg/dl Creatinine 0.68 0.60-1.40 mg/dl Est Creatinine Clear Calc Drug Dose 149.8 ml/min Estimated GFR () 125.5 Estimated GFR (Non- 108.3 BUN/Creatinine Ratio 21.4 10-20 Random Glucose 150 70-99 mg/dl Calcium Level 8.9 8.5-10.1 mg/dl Test 01/07/17 12:05 Range/Units Bedside Glucose 153 70-99 mg/dl Assessment & Plan S/P LAR for rectosigmoid carcinoma Stable Peristalsis returned Clear liquids Encouraged ambulation Oral analgesics
[2017-01-07] MEDS ORDERED: MoRPHine SULFATE 4 MG/ML 1 ML CARP\\VIAL IV PRN (16:00)
[2017-01-07] MEDS ORDERED: NURSING DECISION MEDICATION ORDER SCH (23:30)
[2017-01-08] MEDS: LACTATED RINGER'S 1000ML 1,000 ML IV SCH ×3 (05:55→19:54)
[2017-01-08 06:57] VITALS: BP 161/91; PULSE 78; TEMP 36.9; O2SAT 96
[2017-01-08] MEDS: OXYCODONE/ACETAMINOPHEN 5-325 TAB PO PRN ×2 (07:21→18:52)
--- NOTE | 2017-01-08 08:23 | Surgery Progress Note ---
Surgery Progress Note Date of Service January 08, 2017. Subjective Post OP Day: 4 + feeling well no complaints. tolerating liquids. pain controlled. no bm yet. Objective Vital Signs: Date Time Temp Pulse Resp B/P Pulse Ox O2 Delivery O2 Flow Rate FiO2 01/08/17 06:57 36.9 78 17 161/91 96 Room Air 01/07/17 23:41 Room Air 01/07/17 22:50 36.8 81 18 146/82 95 Room Air 01/07/17 21:17 86 164/83 01/07/17 20:01 37.4 82 16 137/72 95 Room Air 01/07/17 16:10 Room Air 01/07/17 15:03 36.9 84 16 160/91 96 Room Air 01/07/17 12:04 36.9 82 18 168/84 93 Room Air Physical Exam: RC drainage (serous) General Appearance: no apparent distress Abdomen: non distended, soft Incision(s): clean, dry, intact Laboratory Results: Results Past 24 Hours Test 01/07/17 12:05 01/07/17 18:11 Range/Units Bedside Glucose 153 169 70-99 mg/dl Assessment & Plan 01/04/17 doing well waiting for bowel fx sasha liquids...stay on that until BM increase activity path pending d/c planning
[2017-01-08] MEDS: PANTOprazole INJ 40 MG in SYRINGE 0 ML IV SCH (09:16)
[2017-01-08] MEDS: CARVEDILOL 6.25 MG TAB PO SCH ×2 (09:16→20:53)
[2017-01-08] MEDS: ENOXAPARIN 40 MG/0.4 ML SYR SQ SCH (09:17)
[2017-01-08] MEDS: INSULIN ASPART 100 UNITS/ML 3 ML PEN SC SCH ×4 (09:19→21:01)
[2017-01-08 12:34] VITALS: BP 155/90
--- NOTE | 2017-01-08 13:34 | Progress Note ---
Progress Note Date of Service January 08, 2017. Progress Note doing well this afternoon had small BM will advance to full liquids
[2017-01-08] MEDS ORDERED: DOCUSATE SODIUM 100 MG CAP PO PRN (13:45)
[2017-01-08 16:00] VITALS: BP 156/79; PULSE 79; TEMP 37.3; O2SAT 97
[2017-01-08 18:50] VITALS: TEMP 37.1
[2017-01-08 20:52] VITALS: BP 155/86; PULSE 83
[2017-01-08 22:48] VITALS: BP 128/73; PULSE 74; TEMP 36.9; O2SAT 96
[2017-01-09] MEDS: LACTATED RINGER'S 1000ML 1,000 ML IV SCH (02:51)
[2017-01-09 07:52] VITALS: BP 150/87; PULSE 77; TEMP 36.7; O2SAT 97
[2017-01-09 08:20] VITALS: O2SAT 97
[2017-01-09] MEDS: ENOXAPARIN 40 MG/0.4 ML SYR SQ SCH (08:47)
[2017-01-09] MEDS: PANTOprazole INJ 40 MG in SYRINGE 0 ML IV SCH (08:49)
[2017-01-09] MEDS: INSULIN ASPART 100 UNITS/ML 3 ML PEN SC SCH ×2 (08:53→12:52)
--- NOTE | 2017-01-09 08:53 | Surgery Progress Note ---
Surgery Progress Note Date of Service January 09, 2017. Subjective Post OP Day: 5 + bowel movement (x3), + diet (fulls), + feeling well, No complaints, No nausea Objective Vital Signs: Date Time Temp Pulse Resp B/P Pulse Ox O2 Delivery O2 Flow Rate FiO2 01/09/17 08:20 97 Room Air 01/09/17 07:52 36.7 77 12 150/87 97 Room Air 01/09/17 07:30 Room Air 01/08/17 23:30 Room Air 01/08/17 22:48 36.9 74 16 128/73 96 Room Air 01/08/17 20:52 83 155/86 01/08/17 18:50 37.1 01/08/17 16:00 37.3 79 18 156/79 97 Room Air 01/08/17 16:00 Room Air 01/08/17 12:34 155/90 Physical Exam: RC drainage (20 cc serous) Abdomen: non distended, soft Incision(s): clean, dry, drainage (serous drainage reported by nursing, none on new dressing) Laboratory Results: Results Past 24 Hours Test 01/08/17 12:03 01/08/17 17:42 01/08/17 20:59 Range/Units Bedside Glucose 224 153 193 70-99 mg/dl Assessment & Plan s/p LAR bowels moving, begin low fat diet HLIV tolerating Percocet
--- NOTE | 2017-01-09 09:16 | Discharge Instructions ---
Discharge Instructions Date of Service January 09, 2017. Admission Reason for Admission: Rectosigmoid Cancer, Diabetes Discharge Discharge Diagnosis / Problem: colon ca Discharge Goals Goal(s): Prevent Disease Progression Activity Recommendations Activity Limitations: as noted below Lifting Limitations: no more than 10 pounds Exercise/Sports Limitations: until after follow-up appointment May Resume Sexual Activity: after follow-up appointment Shower/Bathe: no limitations . Instructions / Follow-Up Instructions / Follow-Up follow up with dr. dye as scheduled. call [phone] with any questions or concerns Current Hospital Diet Patient's current hospital diet: Low Fat Diet Discharge Diet Recommended Diet: Regular Diet Procedures Procedures Performed: Laparoscopy converted to Laparotomy with Lower Anterior resection with Interoperative sigmoidoscopy Pending Studies Studies pending at discharge: yes List of pending studies: path report Laboratory Results Hemoglobin A1c Test 10/30/16 14:17 Range/Units Estimated Average Glucose 140 mg/dl Hemoglobin A1c 6.5 H 4.5-5.6 % Lipid Panel Test 10/30/16 14:17 Range/Units Triglycerides Level 815 H 0-150 mg/dl Cholesterol Level 169 0-200 mg/dl HDL Cholesterol 22 mg/dl Cholesterol/HDL Ratio 7.7 LDL Cholesterol, Calculated mg/dl Medical Emergencies . Who to Call and When: Medical Emergencies: If at any time you feel your situation is an emergency, please call 911 immediately. . Non-Emergent Contact Non-Emergency issues call your: Primary Care Provider, Surgeon Call Non-Emergent contact if: temperature is above 101, wound has increased drainage, wound has increased redness, wound has increased pain . "Provider Documentation" section prepared by [facility]. . VTE Core Measure Inpt VTE Proph given/why not?: Unfractionated heparin SQ
[2017-01-09] MEDS ORDERED: HYDR-5688 PO (09:18)
[2017-01-09] MEDS: CARVEDILOL 6.25 MG TAB PO SCH (09:35)
[2017-01-09 11:24] VITALS: BP 150/87; PULSE 77; TEMP 36.7; O2SAT 97
[2017-01-10] MEDS ORDERED: PANTOprazole SOD 40 MG TAB PO SCH (09:00)
--- NOTE | 2017-01-10 10:06 | DISCHARGE SUMMARY ---
PRIMARY DISCHARGE DIAGNOSES: 1. Rectal cancer. 2. Obesity. SECONDARY DISCHARGE DIAGNOSES: 1. Type 2 diabetes. 2. Dyslipidemia. 3. Hypertension. PROCEDURE PERFORMED: Laparoscopic assisted low anterior resection with primary anastomosis and intraoperative sigmoidoscopy. HOSPITAL COURSE: The patient is a 56-year-old male with a rectosigmoid cancer on outpatient colonoscopy now admitted through same day and taken to the operating room for resection. The majority of the dissection was carried a laparoscopic cholecystectomy; however, we identified the lesion was low in the rectum converted to open for completion of the procedure. He was transferred to the surgical floor. Perioperative antibiotics were continued for 24 hours. Lovenox was used beginning postoperative day #1 for DVT prophylaxis. His pain was initially controlled with a CLINICAL LABORATORY AIDE. He was able to tolerate sips of clears advancing to a clear liquid diet over the initial 48 hours. He began passing flatus on day 3 and continue to tolerate clear liquids. His blood sugars were covered with sliding scale insulin. By day 4, he began moving his bowels. He was advanced to a full liquid diet. His blood pressure remained stable. He was tolerating oral analgesics. By day 5, he had multiple bowel movements. He was able to tolerate a low fat diet. RC drain was removed from the pelvis and drainage was serous. Incision was healing well. He was stable for discharge on postoperative day 5. DISCHARGE INSTRUCTIONS: Discharge home. Follow up with Dr. Dye in 1 week. DISCHARGE MEDICATIONS: [place] 5/325 1-2 tablets every 4 hours as needed. Resume his previous home medications including aspirin 81 mg daily, Lipitor 20 mg daily, Coreg 6.25 mg b.i.d., Victoza 18 mg injection daily, Zestril 5 mg at bedtime, Glucophage 1000 mg b.i.d. daily, multivitamin, and Farxiga 5 mg in the morning.
[2017-02-06] MEDS ORDERED: LORA10CA2 PO (10:23)
== END 2017-01-09 13:15 | disposition home or self-care (01) | DRG 331 ==
LOC: ENRESERVTM → ENRESERVDT → C.ACU 07:57 → C.MSW 14:15
PROVIDERS: ADMIT Surgery; ATTEND Surgery
PROC: 0DJD8ZZ Inspection of Lower Intestinal Tract, Via Natural or Artificial Opening Endoscopic (ICD-10-PCS; principal; 2017-01-04 09:45)
PROC: 0DBN0ZZ Excision of Sigmoid Colon, Open Approach (ICD-10-PCS; principal; 2017-01-04 09:45)
DX: C19 Malignant neoplasm of rectosigmoid junction (principal); E11.9 Type 2 diabetes mellitus without complications; E78.5 Hyperlipidemia, unspecified; K76.0 Fatty (change of) liver, not elsewhere classified; I10 Essential (primary) hypertension; E66.9 Obesity, unspecified; H91.90 Unspecified hearing loss, unspecified ear; F17.210 Nicotine dependence, cigarettes, uncomplicated; Z79.82 Long term (current) use of aspirin; Z79.899 Other long term (current) drug therapy; Z81.8 Family history of other mental and behavioral disorders; Z82.49 Family history of ischemic heart disease and other diseases of the circulatory system; Z83.3 Family history of diabetes mellitus; Z80.3 Family history of malignant neoplasm of breast; Z80.51 Family history of malignant neoplasm of kidney; Z68.32 Body mass index [BMI] 32.0-32.9, adult

== ENCOUNTER → 2017-03-12 | Outpatient (CLI) | payer OTHER ==
[~2017-03-12] MED LIST changes: -CEFAZOLIN 2000 MG/60 ML D5W IV SCH; +DAPA1TAB2 PO; -DAPA1TAB8 PO; -HEPARIN SOD 5000 UNIT/0.5 ML CARP SQ SCH; +HYDR-5688 PO; -LACTATED RINGER'S 1000ML 1,000 ML IV SCH; +LORA10CA2 PO
[2017-03-12 15:01] LABS: ALT/SGPT 24 U/L (12-78); AST/SGOT 15 U/L (15-37); BLOOD UREA NITROGEN 15 mg/dl (7-18); BUN/CREATININE RATIO 17.6 (10-20); CALCIUM 9.3 mg/dl (8.5-10.1); CARBON DIOXIDE 25 mmol/L (21-32); CHLORIDE 101 mmol/L (98-107); CHOLESTEROL 123 mg/dl (0-200); CREATININE 0.87 mg/dl (0.60-1.40); ESTIMATED AVERAGE GLUCOSE 146 mg/dl; GLUCOSE 199 mg/dl (70-99); HA1C FLAG Normal (Normal); POTASSIUM 4.2 mmol/L (3.5-5.1); SODIUM 137 mmol/L (136-145); TRIGLYCERIDES 273 mg/dl (0-150); VERY LOW DENSITY LIPOPROT CALC 55 mg/dl
[2017-03-12 15:04] LABS: ALKALINE PHOSPHATASE 97 U/L (45-117); CHOLESTEROL/HDL RATIO 4.9; HDL CHOLESTEROL 25 mg/dl; LDL CHOLESTEROL CALCULATED 43 mg/dl
== END | disposition home or self-care (01) ==
LOC: C.LAB1850 13:11
PROVIDERS: ATTEND Physician Assistant
DX: R74.8 Abnormal levels of other serum enzymes (principal); E11.9 Type 2 diabetes mellitus without complications; K76.0 Fatty (change of) liver, not elsewhere classified

== ENCOUNTER → 2017-08-09 | Outpatient (CLI) | payer BC ==
[~2017-08-09] MED LIST changes: -DAPA1TAB2 PO; +DAPA1TAB8 PO; -HYDR-5688 PO
[2017-08-09 13:30] LABS: ESTIMATED AVERAGE GLUCOSE 143 mg/dl; HA1C FLAG Normal (Normal)
[2017-08-09 13:37] LABS: ALT/SGPT 34 U/L (12-78); AST/SGOT 21 U/L (15-37); BLOOD UREA NITROGEN 16 mg/dl (7-18); BUN/CREATININE RATIO 18.5 (10-20); CALCIUM 9.4 mg/dl (8.5-10.1); CARBON DIOXIDE 25 mmol/L (21-32); CHLORIDE 104 mmol/L (98-107); CREATININE 0.85 mg/dl (0.60-1.40); GLUCOSE 163 mg/dl (70-99); SODIUM 137 mmol/L (136-145)
[2017-08-09 13:47] LABS: ALB/GLOB RATIO 0.9 (0.9-2); ALKALINE PHOSPHATASE 84 U/L (45-117); CHOLESTEROL 114 mg/dl (0-200); CHOLESTEROL/HDL RATIO 4.1; HDL CHOLESTEROL 28 mg/dl; LDL CHOLESTEROL CALCULATED 41 mg/dl; TRIGLYCERIDES 223 mg/dl (0-150); VERY LOW DENSITY LIPOPROT CALC 45 mg/dl
[2017-08-09 13:54] LABS: RATIO 1262.8 mcg/mg (0-30.0)
== END | disposition home or self-care (01) ==
LOC: C.LAB1850 11:31
PROVIDERS: ATTEND Physician Assistant
DX: E11.9 Type 2 diabetes mellitus without complications (principal)

== ENCOUNTER → 2017-11-19 | Outpatient (CLI) | payer OTHER ==
[2017-11-19 13:02] LABS: ALBUMIN 3.7 gm/dl (3.4-5.0); ALT/SGPT 28 U/L (12-78); BLOOD UREA NITROGEN 14 mg/dl (7-18); CALCIUM 9.4 mg/dl (8.5-10.1); CARBON DIOXIDE 27 mmol/L (21-32); CHOLESTEROL 123 mg/dl (0-200); CREATININE 0.93 mg/dl (0.60-1.40); GLUCOSE 173 mg/dl (70-99); POTASSIUM 4.6 mmol/L (3.5-5.1); SODIUM 136 mmol/L (136-145)
[2017-11-19 13:03] LABS: HEMOGLOBIN A1C 7.4 % (4.5-5.6)
[2017-11-19 13:05] LABS: ALKALINE PHOSPHATASE 75 U/L (45-117); AST/SGOT 17 U/L (15-37); LDL CHOLESTEROL CALCULATED 72 mg/dl; TOTAL PROTEIN 7.6 gm/dl (6.4-8.2)
== END | disposition home or self-care (01) ==
LOC: C.LAB1850 10:34
PROVIDERS: ATTEND Physician Assistant
DX: E11.9 Type 2 diabetes mellitus without complications (principal); E78.5 Hyperlipidemia, unspecified

== ENCOUNTER → 2017-12-03 | Day surgery (SDC) | payer OTHER ==
[2017-11-23 13:59] VITALS: BMI 32.0
[~2017-12-03] VITALS: Ht 177.8 cm; Wt 102.3 kg
[~2017-12-03] MED LIST changes: +ATROPINE SULFATE 0.1 MG/ML 5ML SYR IV PRN; +ENDOSCOPIC MARKER 5 ML SYR ONE; +EpHEDrine SULFATE INJ 50 MG/ML AMP IV PRN; +LIDOCAINE HCL 2% 2 ML VIAL (20MG/ML) ONE; -LORA10CA2 PO; +MIDAZOLAM HCL 1 MG/ML 2ML VIAL ONE; +PROPOFOL IV EMULSION 10 MG/ML 20 ML VIAL IV ONE; +SODIUM CHLORIDE 0.9% 500ML 500 ML IV ONE
[2017-12-03 08:11] VITALS: Ht 177.8 cm; Wt 102.3 kg
--- NOTE | 2017-12-03 09:05 | Endo History and Physical ---
History & Physical Date of Service: Dec 03, 2017. Chief Complaint: hx colon cancer with resection Referring Physician: Dr. Tenorio History of Present Illness 57 yo CM who presents for colonoscopy secondary to history of colon cancer. Past Medical History Diabetes, Heart Disease, Hypertension Past Surgical History Hx Cardiac Surgery: No Hx Internal Defibrillator: No Hx Pacemaker: No Hx Abdominal Surgery: No Hx of Implantable Prosthesis: No Hx Post-Op Nausea and Vomiting: No Hx Cancer Surgery: Yes (LOWER ANTERIOR COLON RESECTION) Hx Thoracic Surgery: No Hx Orthopedic: No Hx Urinary Tract Surgery: No Family History None Social History Smoking Status: Former Smoker Hx Substance Use: No Hx Alcohol Use: No Allergies Coded Allergies: No Known Drug Allergy (Verified Allergy, Unknown, NKDA, 12/03/17) Current Medications Reported Home Medications Medications Dose Route/Sig Max Daily Dose Days Date Category Victoza (Liraglutide) 18 Mg/3 Ml Inj 1.2 Mg SC QAM 11/29/16 Reported Multivitamin (Multivitamins) Tab 1 Tab PO QAM 11/29/16 Reported [place]-3 (Fish Oil) 1 Ea Cap 1 Cap PO BID 11/29/16 Reported Glucophage Ext Rel (Metformin Hcl) 1,000 Mg Tab 1,000 Mg PO BID 11/29/16 Reported Zestril (Lisinopril) 5 Mg Tab 5 Mg PO HS 11/29/16 Reported Farxiga (Dapagliflozin Propanediol) 10 Mg Tab 5 Mg PO QAM 11/29/16 Reported Coreg (Carvedilol) 6.25 Mg Tab 1 Tab PO BID 90 11/29/16 Reported Lipitor (Atorvastatin Calcium) 20 Mg Tab 20 Mg PO QAM 11/29/16 Reported Aspirin Ec (Aspirin) 81 Mg Tab 81 Mg PO QPM 04/21/15 Reported Vital Signs Weight (Kilograms): 102.27 Height (Feet): 5 Height (Inches): 10 Date Time Temp Pulse Resp B/P (MAP) Pulse Ox O2 Delivery O2 Flow Rate FiO2 12/03/17 08:23 36.8 81 18 152/86 (108) 96 Room Air Physical Exam General Appearance: WD/WN, no apparent distress Respiratory/Chest: Auscultation: breath sounds normal Cardiovascular: Heart Auscultation: RRR Abdomen: Bowel Sounds: normal Inspection & Palpation: soft, non-distended, no tenderness, guarding & rebound Assessment and Plan Assessment: 57 yo CM who presents for colonoscopy secondary to history of colon cancer. Plan: Proceed with colonoscopy.
--- NOTE | 2017-12-03 09:40 | Discharge Instructions ---
Endoscopy Patient Instructions Date / Procedure(s) Performed Dec 03, 2017. Colonoscopy Allergy Information Coded Allergies: No Known Drug Allergy (Verified Allergy, Unknown, NKDA, 12/03/17) Discharge Date / Findings Dec 03, 2017. Mass at Sigmoid Anastomosis s/p biopsies and tattoo Anastomotic stricture s/p dilation Diverticulosis Medication Instructions Stopped Medication(s): stopped all meds OK to resume all medications today as prescribed Reported Home Medications Medications Dose Route/Sig Max Daily Dose Days Date Category Victoza (Liraglutide) 18 Mg/3 Ml Inj 1.2 Mg SC QAM 11/29/16 Reported Multivitamin (Multivitamins) Tab 1 Tab PO QAM 11/29/16 Reported [place]-3 (Fish Oil) 1 Ea Cap 1 Cap PO BID 11/29/16 Reported Glucophage Ext Rel (Metformin Hcl) 1,000 Mg Tab 1,000 Mg PO BID 11/29/16 Reported Zestril (Lisinopril) 5 Mg Tab 5 Mg PO HS 11/29/16 Reported Farxiga (Dapagliflozin Propanediol) 10 Mg Tab 5 Mg PO QAM 11/29/16 Reported Coreg (Carvedilol) 6.25 Mg Tab 1 Tab PO BID 90 11/29/16 Reported Lipitor (Atorvastatin Calcium) 20 Mg Tab 20 Mg PO QAM 11/29/16 Reported Aspirin Ec (Aspirin) 81 Mg Tab 81 Mg PO QPM 04/21/15 Reported Provider Instructions Activity Restrictions - No exercising or heavy lifting for 24 hours. - Do not drink alcohol the day of the procedure. - Do not drive a car or operate machinery until the day after the procedure. - Do not make any important decisions or sign important papers in 24 hours after the procedure. Following Day: - Return to full activity which may include returning to work/school. Diet Start your diet with liquids and light foods (jello, soup, juice, toast). Then eat your usual diet if not nauseated. Treatment For Common After Affects For mild abdominal pain, bloating, or excessive gas: - Rest - Eat lightly - Lie on right side Follow-Up Information Follow-up with Dr. Tenorio as scheduled Anesthesia Information What You Should Know You have had a procedure that required some medicine to reduce anxiety and discomfort. This treatment is called moderate sedation. After receiving the treatment, you may be sleepy, but you will be able to breathe on your own. The effects of the treatment may last for several hours. Follow these instructions along with Activity/Diet recommendations noted above: * Do NOT do anything where dizziness or clumsiness would be dangerous. * Rest quietly at home today, then you can be up and about tomorrow. * Have a responsible person stay with you the rest of today. * You may have had an I.V. today. If so, you may take the dressing off later today. Recommendations Call your doctor if: * Trouble breathing * Continuous vomiting for more than 24 hours * Temperature above 101 degrees * Severe abdominal pain or bloating * Pain not relieved by pain medicine ordered * There is increased drainage or redness from any incision * A large amount of rectal bleeding greater than 2-3 tablespoons. (If you had a polyp/s removed or have hemorrhoids, a small amount of blood - from the rectum is to be expected.) * You have any unanswered questions or concerns. IN THE EVENT OF A SERIOUS EMERGENCY, GO TO THE NEAREST EMERGENCY ROOM Your discharge instructions were prepared by provider Jensen Rosales. Patient Instructions Signature Page Eloy Michaels Patient (or Guardian) Signature/Date: I have read and understand the instructions given to me by my caregivers. Caregiver/RN/Doctor Signature/Date: The above-named patient and/or guardian has received patient instructions on this date. + Original Patient Signature Page (only) stays with chart. Please make copy for patient.
--- NOTE | 2017-12-03 09:51 | GI REPORT ---
Procedure Date: 12/03/2017 8:44 AM Procedure: Colonoscopy Indications: High risk colon cancer surveillance: Personal history of colon cancer Medicines: Monitored Anesthesia Care Complications: No immediate complications. Estimated Blood Loss: Estimated blood loss: none. Procedure: Pre-Anesthesia Assessment: - Prior to the procedure, a History and Physical was performed, and patient medications and allergies were reviewed. The patient's tolerance of previous anesthesia was also reviewed. The risks and benefits of the procedure and the sedation options and risks were discussed with the patient. All questions were answered, and informed consent was obtained. Prior Anticoagulants: The patient has taken aspirin, last dose was 1 day prior to procedure. ASA Grade Assessment: III - A patient with severe systemic disease. After reviewing the risks and benefits, the patient was deemed in satisfactory condition to undergo the procedure. After I obtained informed consent, the scope was passed under direct vision. Throughout the procedure, the patient's blood pressure, pulse, and oxygen saturations were monitored continuously. The scope was introduced through the anus and advanced to the terminal ileum. The scope was introduced through the and advanced to. The colonoscopy was performed without difficulty. The patient tolerated the procedure well. The quality of the bowel preparation was good. The terminal ileum, the ileocecal valve and the appendiceal orifice were photographed. Findings: The perianal and digital rectal examinations were normal. There was evidence of a prior end-to-side colo-colonic anastomosis in the sigmoid colon. This was non-patent and was characterized by moderate stenosis. The anastomosis was traversed after dilation. A TTS dilator was passed through the scope. Dilation with a 12-13.5-15 mm colonic balloon dilator was performed. The dilation site was examined and showed moderate improvement in luminal narrowing. An infiltrative non-obstructing medium-sized mass was found at the anastomosis. The mass was non-circumferential. The mass measured two cm in length. In addition, its diameter measured twenty mm. Oozing was present. Biopsies were taken with a cold forceps for histology. Scattered small-mouthed diverticula were found in the entire colon. Impression: - Non-patent end-to-side colo-colonic anastomosis, characterized by moderate stenosis. Dilated. - Likely malignant tumor at the colonic anastomosis. Biopsied. - Diverticulosis in the entire examined colon. Recommendation: - Resume previous diet. - Continue present medications. - Repeat colonoscopy for surveillance based on pathology results. - Refer to a colo-rectal surgeon at appointment to be scheduled. Jensen Rosales, DO 12/03/2017 9:51:11 AM This report has been signed electronically. Note Initiated On: 12/03/2017 8:44 AM I attest to the content of the Intraoperative Record and orders documented therein, exceptions below
--- NOTE | 2017-12-03 10:06 | Anesthesiology Progress Note ---
Anesthesia Post Op Note Date & Time Dec 03, 2017 at 10:06 Vital Signs Pain Intensity: 0 Vital Signs Past 12 Hours Date Time Temp Pulse Resp B/P (MAP) Pulse Ox O2 Delivery O2 Flow Rate FiO2 12/03/17 09:59 76 20 132/86 (101) 97 Room Air 12/03/17 09:44 36.2 78 13 132/88 (103) 96 Room Air 12/03/17 08:23 36.8 81 18 152/86 (108) 96 Room Air Notes Mental Status: alert / awake / arousable, participated in evaluation Pt Amnestic to Procedure: Yes Nausea / Vomiting: adequately controlled Pain: adequately controlled Airway Patency, RR, SpO2: stable & adequate BP & HR: stable & adequate Hydration State: stable & adequate Anesthetic Complications: no major complications apparent
[2017-12-03 10:14] VITALS: BP 115/74; PULSE 76; O2SAT 95
== END | disposition home or self-care (01) ==
LOC: C.GI 07:31
PROVIDERS: ATTEND Internal Medicine
DX: Z12.11 Encounter for screening for malignant neoplasm of colon (principal); K91.89 Other postprocedural complications and disorders of digestive system; Z85.038 Personal history of other malignant neoplasm of large intestine; K57.90 Diverticulosis of intestine, part unspecified, without perforation or abscess without bleeding; Z90.49 Acquired absence of other specified parts of digestive tract; Z87.891 Personal history of nicotine dependence; E11.9 Type 2 diabetes mellitus without complications; I11.9 Hypertensive heart disease without heart failure; Z79.82 Long term (current) use of aspirin; Z79.899 Other long term (current) drug therapy; E66.9 Obesity, unspecified; Z68.32 Body mass index [BMI] 32.0-32.9, adult

== ENCOUNTER 2020-04-01 13:34 | Observation (INO) ==
--- NOTE | 2020-04-01 14:14 | XRay Report ---
XR chest 1V portable HISTORY: 59 years-old Male weak acute weakness COMPARISON: Chest radiograph 03/29/2020 TECHNIQUE: Portable AP view of the chest FINDINGS: Cardiomediastinal and hilar silhouettes are within normal limits. Right subclavian [id number] cath eter is unchanged. There is no pneumothorax, pleural effusion, airspace consolidation or overt pulmon amy edema. Bones of the chest appear grossly intact. IMPRESSION: No acute process. ACT 112: Negative or not required by law. The above report was generated using voice recognition software. It may contain grammatical, syntax o r spelling errors. Electronically signed by: Cristian Avery M.D. 04/01/2020 2:12 PM
--- NOTE | 2020-04-01 14:19 | Emergency Department Note ---
ED Provider Note NAME: ISIDRO KC AGE: 59 SEX: M : 1960 ARRIVES VIA: Walk-In INFORMANT: Patient, ED PROVIDER(S): Albaro Conway DO CHIEF COMPLAINT: Abnormal MRI HPI: The patient is a 59-year-old male who has a history of colon cancer liver mass and subdural hematoma in the past who presented to the emergency department for neurologic symptoms. The patient was seen in our facility Sunday of this week for slurred speech. He states his symptoms are slowly improving. He notices no weakness in the arms or legs he notices no difficulty ambulating and he notices no headache. He went to follow-up with his primary care physician today and was sent for an MRI of the brain. He was sent to the emergency department after the MRI because of an abnormality. The patient did not know the MRI read. He states his symptoms are no worse than Sunday and seemed to slowly improve. He denies having any chest pain or difficulty breathing. He has no nausea or vomiting. He notices no chest pain or difficulty breathing. The patient is scheduled for surgery on his liver on the upcoming next weeks. ROS: See above HPI for pertinent positives & negatives. A total of 10 systems reviewed and were otherwise negative. PAST MEDICAL HISTORY: See Below PAST SURGICAL HISTORY: See Below FAMILY HISTORY: See Below SOCIAL HISTORY: See Below HOME MEDICATIONS: See Below ALLERGIES: See Below VITALS: See Below PHYSICAL EXAMINATION: GENERAL: Patient is awake alert in no acute distress patient is resting comfortably and showing no signs of anxiety EYES: The conjunctivae are clear. The pupils are round and reactive. EARS, NOSE, MOUTH AND THROAT: The nose is without any evidence of any deformity. Mucous membranes are moist. NECK: The neck is nontender and supple. RESPIRATORY: Normal respiratory effort is noted there is no evidence of wheezing rhonchi or rales CARDIOVASCULAR: Regular rate and rhythm noted there no murmurs rubs or gallops normal S1 normal S2. GASTROINTESTINAL: The abdomen is soft. Abdomen is nontender. MUSCULOSKELETAL/EXTREMITIES: There is no evidence of gross deformity full range of motion is noted in the hips and shoulders. SKIN: There is no obvious evidence of any rash. There are no petechiae, pallor or cyanosis noted. NEUROLOGIC: Patient is awake alert and oriented x3 strength is symmetric patellar reflexes are 2+ bilaterally. There was no facial droop. Speech was slurred but understandable. MEDICAL DECISION MAKING: The patient is a 59-year-old male who has a history of subdural hematoma as well as colon cancer who presented to the emergency department for an evaluation after an abnormal MRI was obtained by her primary care physician. The patient was seen in our facility earlier this week with neurologic symptoms. At that time his work-up did not show any acute process. The patient was instructed to follow-up with his family doctor. He followed up with his family doctor and was ordered to have an MRI. After the MRI revealed a subacute infarct the patient was sent to the emergency department for further evaluation. The patient's primary care physician did call me in the emergency department and was very concerned about her patient. She felt that he would require further work-up for stroke as well as a formal evaluation by a neurologist. She was also very concerned as to whether or not the patient could drive a vehicle and wanted that evaluated by neurology as well. The patient is in sinus rhythm at this time. His MRI did reveal a subacute infarct in the the patient may require further work-up including echocardiogram and carotid Dopplers. Likely the patient would not be a good candidate for formal anticoagulation yet as we do not have the source for the stroke and the patient is a history of intracranial hemorrhage in the past. He was not a candidate for TPA given the patient's onset of symptoms many days ago. Triage Nursing notes reviewed. Prior medical records reviewed Vital Signs: reviewed and remarkable for no significant abnormalities Differential diagnosis: Infection, dehydration, metabolic abnormality, hypo/hyperglycemia, electrolyte disturbance, anemia, hypoxia, cardiac sources, intracerebral event, toxicologic, neurologic, as well as other pathologies. ER treatment provided: See below Diagnostics interpreted by me: ECG: EKG was obtained in the emergency department. My interpretation is normal sinus rhythm at 91 bpm. There was no ectopy. There is no acute ST segment abnormalities noted. Cardiac Monitoring: An order was placed for continuous cardiac monitoring. The monitor shows a rate of 85 with sinus rhythm. Laboratory studies: As stated above and show below. Imaging studies: See below Consultation(s): 1555: I discussed this case with Dr. Desir who was on-call for the [facility] hospitalist group. They will evaluate the patient in the emergency department for further management and disposition. 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 states it was from his chemotherapy he recently had and stopped 03/16/20 for the liver lesion. pt to f/u with pcp 03/30/20 Hyperlipidemia Hypertension Lesion of liver Obesity Subdural hematoma, post-traumatic 02/2019. Resolved on 03/24/[address] Surgical History History of bowel resection d/t cancer History of colonoscopy with polypectomy History of colostomy 2017 @ [facility] [place] History of colostomy reversal 2018 @ [facility] [place] with hernia repair History of liver biopsy legion of growth on liver, currently waiting to have surgical removed History of vascular access device hx of mediport currently in place on left chest Port-A-Cath in place (01/08/20) Insertion of Right Subclavian Mediport with Fluoroscopy, Removal of Left Subclavian Mediport Dr. Dye 01/08/20 Family History Mother , age 77 of melanoma. Bipolar disorder Cardiac disorder Breast cancer Cancer of kidney Hypertension Family history of diabetes mellitus Father Cardiac disorder Heart problem Hypertension Breast cancer Sister Breast cancer Other No family history of adverse response to anesthesia Social History Smoking Status: Former smoker Age Quit Using Tobacco: 39; Number of Years Since Quit: 20; Second Hand Exposure: No; Hx Alcohol Use: No Hx Substance Use: No Preferred Language: Chinese Communication Ability: Effective Visual Impairment: No Limitations Coding Educator Required: No Beliefs That Will Affect Care: None marital status: Current Living Situation: Family Current Living Situation Comment: Lives with 17 yr old daughter current occupational status: employed 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[employer] Feels Safe at Home: Yes Dental Care, Regularly: Yes Physical Activity Frequency: 3-4 Times per Week Allergies Allergies Allergy/AdvReac Type Severity Reaction Status Date / Time No Known Drug Allergies Allergy Unknown NKDA Verified 04/12/20 11:57 Home Meds Home Medications Medication Instructions Recorded Confirmed multivitamin 1 cap PO QAM 06/05/18 04/12/20 cyanocobalamin (vitamin B-12) 1,000 mcg PO HS #100 cap 04/01/19 04/12/20 1,000 mcg capsule omega 1-qaf-pdf-fish oil 1,000 mg 2 cap PO QAM cap 04/21/19 04/12/20 (120 mg-180 mg) capsule cholecalciferol (vitamin D3) 50 50 mcg PO HS 01/05/20 04/12/20 mcg (2,000 unit) capsule lisinopril 10 mg tablet 5 mg PO HS tab 01/05/20 04/12/20 magnesium oxide 400 mg PO QAM 01/05/20 04/12/20 Previous Rx's Medication Instructions Recorded carvedilol 6.25 mg tablet 6.25 mg PO BID #180 tab 09/25/19 metformin 1,000 mg tablet 1,000 mg PO BID #180 tab 10/08/19 peg 3350-electrolytes 236 240 ml PO Q10M #4000 ml 03/26/20 gram-22.74 gram-6.74 gram-5.86 gram solution fenofibrate 160 mg tablet 160 mg PO PM #90 tab 03/30/20 atorvastatin 80 mg PO DAILY 30 Days #30 tab 04/02/20 cholecalciferol (vitamin D3) 1,250 50,000 units PO WK #12 cap 04/06/20 mcg (50,000 unit) capsule liraglutide 0.6 mg/0.1 mL (18 mg/3 1.2 mg SQ QAM #6 ml 04/06/20 mL) subcutaneous pen injector clopidogrel 75 mg tablet 75 mg PO DAILY 30 Days #30 tab 04/12/20 Results & Data (ED) Vital Signs Vital Signs - 24 hr 04/01/20 15:00 04/01/20 15:01 04/01/20 15:30 Pulse Rate 85 83 83 Pulse Rate from SpO2 Sensor 85 83 85 Respiratory Rate 19 21 17 Blood Pressure 115/75 120/70 Blood Pressure Mean 82 82 Pulse Oximetry 94 93 95 04/01/20 15:31 04/01/20 16:00 04/01/20 16:01 Pulse Rate 84 83 86 Pulse Rate from SpO2 Sensor 85 83 86 Respiratory Rate 15 18 18 Blood Pressure 123/77 Blood Pressure Mean 91 Pulse Oximetry 96 95 95 04/01/20 16:30 04/01/20 16:31 04/01/20 17:00 Pulse Rate 84 84 83 Pulse Rate from SpO2 Sensor 85 85 82 Respiratory Rate 18 22 19 Blood Pressure 139/85 139/90 Blood Pressure Mean 95 108 Pulse Oximetry 95 97 97 04/01/20 17:01 04/01/20 17:30 04/01/20 17:31 Pulse Rate 79 82 79 Pulse Rate from SpO2 Sensor 78 81 80 Respiratory Rate 13 14 18 Blood Pressure 136/88 Blood Pressure Mean 108 Pulse Oximetry 94 96 96 Home Medications Current Medication List: was personally reviewed by me Laboratory Data Attestation: I reviewed the patient's lab results. Result diagrams: 04/02/20 07:44 04/02/20 07:44 Lab Results 04/01/20 04/01/20 04/01/20 Range/Units 14:15 14:15 14:15 WBC 3.10 L (4.8-10.8) K/uL RBC 4.03 L (4.7-6.1) M/uL Hgb 13.0 L (14.0-18.0) g/dL Hct 36.4 L (42-52) % MCV 90.3 (80-100) fL MCH 32.3 (25-34) pg MCHC 35.7 (32-36) g/dL RDW Std Deviation 50.0 H (36.4-46.3) fL RDW Coeff of Marcelina 15.1 H (11.5-14.5) % Plt Count 151 (130-400) K/uL MPV 10.2 (7.4-10.4) fL Immature Gran % (Auto) 0.6 % Neut % (Auto) 25.6 % Lymph % (Auto) 44.5 % [place] % (Auto) 23.5 % Eos % (Auto) 4.5 % Baso % (Auto) 1.3 % Neut # (Auto) 0.79 L* (1.4-6.5) K/uL Lymph # (Auto) 1.38 (1.2-3.4) K/uL [place] # (Auto) 0.73 H (0.11-0.59) K/uL Eos # (Auto) 0.14 (0-0.5) K/uL Baso # (Auto) 0.04 (0-0.2) K/uL Immature Gran # (Auto) 0.02 (0.00-0.02) K/uL PT 10.5 (9.0-12.0) Seconds INR 1.0 (0.9-1.1) APTT 28.5 (21.0-31.0) Seconds PTT Ratio 1.0 Sodium 139 (136-145) mmol/L Potassium 4.7 (3.5-5.1) mmol/L Chloride 110 H (98-107) mmol/L Carbon Dioxide 25 (21-32) mmol/L Anion Gap 4.0 (3-11) BUN 28 H (7-18) mg/dl Creatinine 1.18 (0.6-1.4) mg/dl Est Cr Clr Drug Dosing 82.1 ml/min Est GFR ( Amer) 78.9 Est GFR (Non-Af Amer) 68.1 BUN/Creatinine Ratio 24.0 H (10-20) Glucose 144 H (70-99) mg/dl Estimat Average Glucose mg/dl Hemoglobin A1c (4.5-5.6) % Calcium 9.2 (8.5-10.1) mg/dl Magnesium 1.9 (1.8-2.4) mg/dl Total Bilirubin 1.6 H (0.2-1) mg/dl AST 27 (15-37) U/L ALT 42 (12-78) U/L Alkaline Phosphatase 87 (45-117) U/L Troponin I < 0.015 (0-0.045) ng/ml Total Protein 7.4 (6.4-8.2) gm/dl Albumin 3.7 (3.4-5.0) gm/dl Globulin 3.7 (2.5-4.0) gm/dl Albumin/Globulin Ratio 1.0 (0.9-2) 04/01/ Range/Units 14:15 WBC (4.8-10.8) K/uL RBC (4.7-6.1) M/uL Hgb (14.0-18.0) g/dL Hct (42-52) % MCV (80-100) fL MCH (25-34) pg MCHC (32-36) g/dL RDW Std Deviation (36.4-46.3) fL RDW Coeff of Marcelina (11.5-14.5) % Plt Count (130-400) K/uL MPV (7.4-10.4) fL Immature Gran % (Auto) % Neut % (Auto) % Lymph % (Auto) % [place] % (Auto) % Eos % (Auto) % Baso % (Auto) % Neut # (Auto) (1.4-6.5) K/uL Lymph # (Auto) (1.2-3.4) K/uL [place] # (Auto) (0.11-0.59) K/uL Eos # (Auto) (0-0.5) K/uL Baso # (Auto) (0-0.2) K/uL Immature Gran # (Auto) (0.00-0.02) K/uL PT (9.0-12.0) Seconds INR (0.9-1.1) APTT (21.0-31.0) Seconds PTT Ratio Sodium (136-145) mmol/L Potassium (3.5-5.1) mmol/L Chloride (98-107) mmol/L Carbon Dioxide (21-32) mmol/L Anion Gap (3-11) BUN (7-18) mg/dl Creatinine (0.6-1.4) mg/dl Est Cr Clr Drug Dosing ml/min Est GFR ( Amer) Est GFR (Non-Af Amer) BUN/Creatinine Ratio (10-20) Glucose (70-99) mg/dl Estimat Average Glucose 114 mg/dl Hemoglobin A1c 5.6 (4.5-5.6) % Calcium (8.5-10.1) mg/dl Magnesium (1.8-2.4) mg/dl Total Bilirubin (0.2-1) mg/dl AST (15-37) U/L ALT (12-78) U/L Alkaline Phosphatase (45-117) U/L Troponin I (0-0.045) ng/ml Total Protein (6.4-8.2) gm/dl Albumin (3.4-5.0) gm/dl Globulin (2.5-4.0) gm/dl Albumin/Globulin Ratio (0.9-2) Administered Medications Discontinued Medications Aspirin (Ecotrin Ectab) 81 mg PO DAILY BRITTANY Stop: 05/02/20 08:59 Last Admin: 04/02/20 08:25 Dose: 81 mg Documented by: [id number] Atorvastatin Calcium (Lipitor) 20 mg PO QPM BRITTANY Stop: 05/01/20 21:16 Last Admin: 04/01/20 23:44 Dose: 20 mg Documented by: [id number] Carvedilol (Coreg) 6.25 mg PO BID BRITTANY Stop: 05/01/20 21:16 Last Admin: 04/02/20 08:25 Dose: 6.25 mg Documented by: [id number] Admin: 04/01/20 23:44 Dose: 6.25 mg Documented by: [id number] Fenofibrate (Tricor) 145 mg PO PM BRITTANY Stop: 05/01/20 21:44 Last Admin: 04/01/20 23:44 Dose: 145 mg Documented by: [id number] Heparin Sodium (Porcine) (Heparin Sodium (Porcine)) 5,000 units SQ Q12 BRITTANY Stop: 05/01/20 21:16 Last Admin: 04/02/20 11:40 Dose: 5,000 units Documented by: [id number] Cosigned by: [id number] Admin: 04/01/20 23:43 Dose: 5,000 units Documented by: [id number] Cosigned by: [id number] Heparin Sodium (Porcine) (Heparin Sod 100 Unit/Ml Flush) 5 ml FLUSH PRN PRN PRN Reason: Flush Stop: 05/02/20 00:43 Last Admin: 04/02/20 18:50 Dose: 5 ml Documented by: [id number] Admin: 04/02/20 07:50 Dose: 5 ml Documented by: [id number] Insulin Aspart (Novolog Flexpen) 0 units SC Q6 BRITTANY Stop: 05/01/20 21:29 Last Admin: 04/02/20 12:50 Dose: Not Given Documented by: [id number] Cosigned by: [id number] Admin: 04/02/20 06:32 Dose: Not Given Documented by: [id number] Cosigned by: [id number] Admin: 04/02/20 00:42 Dose: Not Given Documented by: [id number] Cosigned by: [id number] Admin: 04/01/20 22:38 Dose: Not Given Documented by: [id number] Cosigned by: [id number] Insulin Aspart (Novolog Flexpen) 0 units SC ACHS [facility] Stop: 05/02/20 16:29 Last Admin: 04/02/20 17:17 Dose: Not Given Documented by: [id number] Ioversol (Optiray 320 125ml) 120 ml IV ONCE ONE Stop: 04/02/20 10:58 Last Admin: 04/02/20 10:58 Dose: 120 ml Documented by: [id number] Lisinopril (Zestril) 5 mg PO HS BRITTANY Stop: 05/01/20 21:16 Last Admin: 04/01/20 23:44 Dose: 5 mg Documented by: [id number] Magnesium Oxide (Mag-Ox) 400 mg PO QAM BRITTANY Stop: 05/02/20 08:59 Last Admin: 04/02/20 08:25 Dose: 400 mg Documented by: [id number] Imaging Data Radiologist's Impression: R chest 1V portable HISTORY: 59 years-old Male weak acute weakness COMPARISON: Chest radiograph 03/29/2020 TECHNIQUE: Portable AP view of the chest FINDINGS: Cardiomediastinal and hilar silhouettes are within normal limits. Right subclavian Repmpc-r-Apma catheter is unchanged. There is no pneumothorax, pleural effusion, airspace consolidation or overt pulmonary edema. Bones of the chest appear grossly intact. IMPRESSION: No acute process. ACT 112: Negative or not required by law. The above report was generated using voice recognition software. It may contain grammatical, syntax or spelling errors. Electronically signed by: Cristian Avery M.D. 04/01/2020 2:12 PM Dictated: 04/01/20 1411 Transcribed: 04/01/20 1411 MRI OF THE BRAIN WITHOUT CONTRAST CLINICAL HISTORY: neurological deficit SLURRED SPEECH. HISTORY OF TRAUMATIC BRAIN INJURY. COMPARISON STUDY: Head CT dated 03/29/2020, MRI the brain dated 11/20/2018 FINDINGS: Sagittal T1, axial diffusion, proton density and T2 weighted axial, coronal FLAIR, and axial T1-weighted images were acquired. No intra or extra-axial mass lesions are visualized There is a focus of restricted water diffusion within the left anterior parietal lobe measuring 4 x 1 cm. This is consistent with acute/subacute infarct. There is no evidence of ventricular dilatation. Proton density T2-weighted and FLAIR images reveal scattered foci of increased T2 signal within the white matter, likely on a small vessel basis. There is increased FLAIR signal in the region of the acute/subacute left parietal lobe infarct. There is right temporal lobe and bifrontal encephalomalacia. There is a stable cortical focus of increased FLAIR signal within the right frontoparietal region, likely secondary to an area of posttraumatic encephalomalacia There are no abnormal flow voids. IMPRESSION: 1. Acute/subacute left anterior parietal lobe infarct 2. 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 ACT 112: Negative or not required by law. Electronically signed by: Tomasz Lopez M.D. 04/01/2020 11:34 AM Dictated: 04/01/20 1128 Transcribed: 04/01/20 112 Blood Pressure Blood Pressure Findings: Normal blood pressure Discharge Plan Visit Data Patient Disposition: Admitted As Inpatient Condition: Good Discharge Instructions Interventions: ED Discharge Assessment Last Done: 04/01/20 20:51
[2020-04-01 14:37] LABS: Hematocrit (blood only) 36.4 % (42-52); Mean Corpuscular Hemoglobin 32.3 pg (25-34); Mean Corpuscular Hgb Conc 35.7 g/dL (32-36); Mean Corpuscular Volume 90.3 fL (80-100); Mean Platelet Volume 10.2 fL (7.4-10.4); Platelet Count 151 K/uL (130-400); RDW Coefficient of Variation 15.1 % (11.5-14.5); Red Blood Count 4.03 M/uL (4.7-6.1)
[2020-04-01 14:50] LABS: Partial Thromboplastin Time 28.5 Seconds (21.0-31.0); Prothrombin Time 10.5 Seconds (9.0-12.0)
[2020-04-01 14:55] LABS: Alanine Aminotransferase 42 U/L (12-78); Albumin Level 3.7 gm/dl (3.4-5.0); Aspartate Aminotransferase 27 U/L (15-37); Blood Urea Nitrogen 28 mg/dl (7-18); Calcium 9.2 mg/dl (8.5-10.1); Carbon Dioxide 25 mmol/L (21-32); Chloride 110 mmol/L (98-107); Creatinine Clr Calc Pharmacy 82.1 ml/min; Est GFR (African American) 78.9; Est GFR (Non-African American) 68.1; Glucose 144 mg/dl (70-99); Magnesium 1.9 mg/dl (1.8-2.4); Potassium 4.7 mmol/L (3.5-5.1); Sodium 139 mmol/L (136-145)
[2020-04-01 15:00] LABS: Alkaline Phosphatase 87 U/L (45-117); Bilirubin,Total 1.6 mg/dl (0.2-1); Globulin 3.7 gm/dl (2.5-4.0); Total Protein 7.4 gm/dl (6.4-8.2); Troponin I < 0.015 ng/ml (0-0.045)
[2020-04-01 15:29] LABS: Basophils # (auto) 0.04 K/uL (0-0.2); Basophils % (auto) 1.3 %; Eosinophils # (auto) 0.14 K/uL (0-0.5); Eosinophils % (auto) 4.5 %; Immature Granulocytes # (auto) 0.02 K/uL (0.00-0.02); Immature Granulocytes % (auto) 0.6 %; Lymphocytes # (auto) 1.38 K/uL (1.2-3.4); Lymphocytes % (auto) 44.5 %; Monocytes # (auto) 0.73 K/uL (0.11-0.59); Monocytes % (auto) 23.5 %; Neutrophils # (auto) 0.79 K/uL (1.4-6.5); Neutrophils % (auto) 25.6 %
--- NOTE | 2020-04-01 16:38 | Electrocardiogram Report ---
Test Reason : Blood Pressure : / mmHG Vent. Rate : 091 BPM Atrial Rate : 091 BPM P-R Int : 158 ms QRS Dur : 080 ms QT Int : 326 ms P-R-T Axes : 013 028 012 degrees QTc Int : 400 ms Normal sinus rhythm Normal ECG When compared with ECG of 29-MAR-2020 09:20, Borderline Criteria for Septal infarct no longer present Otherwise no significant change Confirmed by Ez Carpenter ([id number]) on 04/01/2020 4:37:57 PM Referred By: Josué Kaur Confirmed By:Ez Carpenter
--- NOTE | 2020-04-01 18:09 | History & Physical Report ---
Date of Service April 01, 2020 Assessment & Plan Admission and Anticipated Discharge Date Admission Date: 59 yo M w/ pMHx. of diabetes, HTN, HLD, subdural hematoma in 2018 who presented to ER on Sunday with slurred speech that has improved, patient returned to further evaluated outpatient MRI with findings of subacute stroke. Subacute stroke seen on MRI, deficit included slurred speech MRI BRAIN IMPRESSION: 1. Acute/subacute left anterior parietal lobe infarct 2. 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 Rosales HTN - Continue home Lisinopril and Carvedilol Diabetes Mellitus II, with last A1C 6 - discontinued home oral medications - started insulin sliding scale - continue to evaluate and treat Code: full DVT: Heparin Diet: NPO until speech evaluation History of Present Illness Chief Complaint: slurred speech Primary Care Provider: Josué Allen MD Eloy Michaels is a 59 year old male with a pMHx. of Diabetes, HTN, and history of colon cancer (diagnosed 2017) with liver mass and subdural hematoma in 2018. He came in to the emergency room on Sunday with slurred speech that has improved. He had a negative CT at that time. He was riding his motorcycle today when his sister called him with the results of his MRI and he came to the ER to get evaluated further. He has no prior stroke. He has no weakness, no difficulty ambulating, no headaches, no trouble with vision. He did not remember what happened when he had a subdural hematoma in August 2018, describing it as a syncopal event. November 20, 2018 MRI Brain with and without contrast showed near resolution of intracranial bleed with minimal residual abnormality- right frontal hemorrhagic foci, CT scan of the brain com pleted March 24, 2019 showing residual encephalomalacia and prior fracture but no acute findings, CT scan of the brain completed March 29, 2020 stable imaging. The patient was diagnosed with colon cancer in 2016. Patient was concerned because he has a colonoscopy scheduled tomorrow with Dr. Rosales. This colonoscopy is scheduled to plan for a laproscopic procedure planned with Dr. Hedrick at [facility]. Social Hx.: - He lives at [place] with his daughter and girlfriend - 20 pack year history of smoking quit 20 years prior - no ETOH use - no recreational drug use Allergies Allergy/AdvReac Type Severity Reaction Status Date / Time No Known Drug Allergies Allergy Unknown NKDA Verified 04/01/20 13:50 Home Medications Home Medications Medication Instructions Recorded Confirmed Type multivitamin 1 cap PO QAM 06/05/18 04/01/20 History cyanocobalamin (vitamin B-12) 1,000 mcg PO HS #100 cap 04/01/19 04/01/20 History 1,000 mcg capsule omega 9-kcs-lmm-fish oil 1,000 mg 2 cap PO QAM cap 04/21/19 04/01/20 History (120 mg-180 mg) capsule carvedilol 6.25 mg tablet 6.25 mg PO BID #180 tab 09/25/19 04/01/20 Rx metformin 1,000 mg tablet 1,000 mg PO BID #180 tab 10/08/19 04/01/20 Rx carvedilol 3.125 mg tablet 3.125 mg PO BID #60 tab 10/24/19 04/01/20 Rx Victoza 2-Ben 1.2 mg SQ QAM 01/05/20 04/01/20 History cholecalciferol (vitamin D3) 50 50 mcg PO HS 01/05/20 04/01/20 History mcg (2,000 unit) capsule lisinopril 10 mg tablet 5 mg PO HS tab 01/05/20 04/01/20 History magnesium oxide 400 mg PO QAM 01/05/20 04/01/20 History peg 3350-electrolytes 236 240 ml PO Q10M #4000 ml 03/26/20 04/01/20 Rx gram-22.74 gram-6.74 gram-5.86 gram solution atorvastatin 20 mg tablet 20 mg PO QPM #90 tab 03/30/20 04/01/20 Rx fenofibrate 160 mg tablet 160 mg PO PM #90 tab 03/30/20 04/01/20 Rx Past Med/Surg History Medical History Cancer diagnosed 2015--COLORECTAL CANCER--3 sxs/chemo Diabetes mellitus, type 2 niddm History of recent hospitalization 03/29/20 [facility] Emergency Room for slurred speech and right arm tingling ---> ruled out stroke. states it was from his chemotherapy he recently had and stopped 03/16/20 for the liver lesion. pt to f/u with pcp 03/30/20 Hyperlipidemia Hypertension Lesion of liver Obesity Subdural hematoma, post-traumatic 02/2019. Resolved on 03/24/[address] Surgical History History of bowel resection d/t cancer History of colonoscopy with polypectomy [place] [facility] [place] [facility] [place] History of liver biopsy legion of growth on liver, currently waiting to have surgical removed History of vascular access device hx of mediport currently in place on left chest Port-A-Cath in place (01/08/20) Insertion of Right Subclavian Mediport with Fluoroscopy, Removal of Left Subclavian Mediport Dr. 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 Beliefs That Will Affect Care: None marital status: Legally Current Living Situation: Family Current Living Situation Comment: Lives with 17 yr old daughter current occupational status: employed 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 Feels Safe at Home: Yes Dental Care, Regularly: Yes Physical Activity Frequency: 3-4 Times per Week Review of Systems Review of Systems: Constitutional: denies fever, chills Cardiac: denies chest pain, palpitations Pulm: denies cough, shortness of breath GI: denies constipation, diarrhea, abdominal pain Neuro: denies headache, weakness, numbness Physical Exam Constitutional: well developed and well nourished; no acute distress Eyes: PERRL, conjunctivae normal, anicteric sclerae ENMT: external ear and nose normal, oropharynx normal Neck: normal visual inspection Respiratory: normal respiratory effort, lungs clear to auscultation Cardiovascular: RRR, no murmur, no edema Chest (Breasts): Additional Comments: - left sided port - scar on right side of chest from prior port site Gastrointestinal (Abdomen): normal bowel sounds, soft, nontender, no hepatosplenomegaly - midline surgical scar Musculoskeletal: no cyanosis or clubbing, extremities motor strength 5/5 Neurologic: PERRL, EOMI, accommodation nl, no face palsy, no dysarthria CN's II-XI intact bilaterally and moves all extremities - some garbled speech Results & Data Results & Data ([facility]) Vital Signs (Past 12 Hours) Vital Signs Temp Pulse Pulse Resp BP BP Pulse Ox 04/01/20 16:31 84 22 97 04/01/20 16:30 84 18 139/85 95 04/01/20 16:01 86 18 95 04/01/20 16:00 83 18 123/77 95 04/01/20 15:31 84 15 96 04/01/20 15:30 83 17 120/70 95 04/01/20 15:01 83 21 93 04/01/20 15:00 85 19 115/75 94 04/01/20 14:15 86 18 120/78 97 04/01/20 13:35 36.9 C 93 H 18 150/88 H 96 CBC Results Results Complete Blood Count Results: RBC 4.03 M/uL (4.7-6.1) L 04/01/20 WBC 3.10 K/uL (4.8-10.8) L 04/01/20 Hgb 13.0 g/dL (14.0-18.0) L 04/01/20 Hct 36.4 % (42-52) L 04/01/20 Plt Count 151 K/uL (130-400) 04/01/20 Chemistry (BMP) Results BMP Results: Sodium 139 mmol/L (136-145) 04/01/20 Potassium 4.7 mmol/L (3.5-5.1) 04/01/20 Chloride 110 mmol/L (98-107) H 04/01/20 BUN 28 mg/dl (7-18) H 04/01/20 Creatinine 1.18 mg/dl (0.6-1.4) 04/01/20 Glucose 144 mg/dl (70-99) H 04/01/20 Code Status & VTE Plan VTE Prophylaxis Plan VTE Prophylaxis will be ordered: Yes Supervising Physician Co-Signing Physician Notes Resident Physician Supervision Note: I independently interviewed and examined the patient and verified the russo history and physical, reviewed labs and image studies, discussed the case with the resident Dr. Bolanos and agree with the findings and care plan. Resident Activity Tracking Resident Involvement: Resident Care Provided Care Provided: Adult Hospital Medicine
[2020-04-01] MEDS ORDERED: CARBOHYDRATES FOR HYPOGLYCEMIA PO PRN (21:17)
[2020-04-01] MEDS ORDERED: ALUMINUM/MAGNESIUM SUSP 30 ML UDC PO PRN (21:17)
[2020-04-01] MEDS ORDERED: ATORVASTATIN 20 MG TAB PO SCH (21:17)
[2020-04-01] MEDS ORDERED: MAGNESIUM HYDROXIDE SUSP 30 ML UDC PO PRN (21:17)
[2020-04-01] MEDS ORDERED: DEXTROSE 50% 50 ML SYRINGE IV PRN (21:17)
[2020-04-01] MEDS ORDERED: lisinopriL 5 MG TAB PO SCH (21:17)
[2020-04-01] MEDS ORDERED: POLYETHYLENE (MIRALAX) 17 GM PACK PO PRN (21:17)
[2020-04-01] MEDS ORDERED: GLUCAGON FOR INJ 1 MG VIAL SQ PRN (21:17)
[2020-04-01] MEDS ORDERED: GLUCOSE 10 TABS/TUBE PO PRN (21:17)
[2020-04-01] MEDS ORDERED: GLUCOSE 40% GEL 15 GM TUBE PO PRN (21:17)
[2020-04-01] MEDS ORDERED: carvediloL 3.125 MG TAB PO SCH (21:17)
[2020-04-01] MEDS ORDERED: ACETAMINOPHEN 325 MG TAB PO PRN (21:17)
[2020-04-01] MEDS ORDERED: PHARMACIST DISCHARGE MED REC CONSULT PRN (21:17)
[2020-04-01] MEDS ORDERED: FENOFIBRATE NANOCRYSTALLIZED 145 MG TABLET PO SCH (21:45)
[2020-04-01] MEDS: INSULIN ASPART 100 UNITS/ML 3 ML PEN SC SCH (22:38)
[2020-04-01] MEDS: HEPARIN SOD 5,000 UNIT/0.5 ML VIAL SQ SCH (23:43)
[2020-04-01] MEDS: carvediloL 6.25 MG TAB PO SCH (23:44)
[2020-04-02] MEDS: INSULIN ASPART 100 UNITS/ML 3 ML PEN SC SCH ×3 (00:42→12:50)
[2020-04-02 06:14] LABS: Estimated Average Glucose 114 mg/dl; Hemoglobin A1C 5.6 % (4.5-5.6)
--- NOTE | 2020-04-02 07:05 | Ultrasound Report ---
CAROTID ARTERY ULTRASOUND CLINICAL HISTORY: Subacute stroke. COMPARISON STUDY: None. TECHNIQUE: Real-time, grayscale, and color Doppler sonography of the carotid and vertebral arteries w as performed. Images were viewed in the transverse and longitudinal planes. FINDINGS: There is mild atherosclerotic plaque. Velocity measurements are listed below. COMMON CAROTID PEAK SYSTOLIC VELOCITY (CM/S): RIGHT 73 LEFT 81 ICA PEAK SYSTOLIC VELOCITY (CM/S): RIGHT 70 LEFT 69 Systolic ratios between the internal to common carotid arteries are normal. Antegrade flow is seen in the vertebral arteries. The external carotid arteries are patent. Blood pressure in the right arm measured 129/87. Blood pressure in the left arm measured 140/85. IMPRESSION: No evidence for a hemodynamically significant stenosis. ACT 112: Negative or not required by law. Electronically signed by: Javier Contreras M.D. 04/02/2020 7:04 AM
[2020-04-02] MEDS: HEPARIN 100 UNIT/ML 5ML FLUSH FLUSH PRN ×2 (07:50→18:50)
[2020-04-02] MEDS ORDERED: LIDOCAINE HCL 2% 2 ML VIAL/AMP(20MG/ML) INFIL ONE (08:12)
[2020-04-02] MEDS ORDERED: PROPOFOL IV EMULSION 10 MG/ML 20 ML VIAL IV ONE (08:12)
[2020-04-02 08:14] LABS: Hematocrit (blood only) 37.9 % (42-52); Mean Corpuscular Hemoglobin 31.5 pg (25-34); Mean Corpuscular Hgb Conc 34.3 g/dL (32-36); Mean Corpuscular Volume 91.8 fL (80-100); Mean Platelet Volume 10.5 fL (7.4-10.4); Platelet Count 140 K/uL (130-400); RDW Coefficient of Variation 15.1 % (11.5-14.5); RDW Standard Deviation 50.8 fL (36.4-46.3); Red Blood Count 4.13 M/uL (4.7-6.1); White Blood Count 2.53 K/uL (4.8-10.8)
[2020-04-02] MEDS: carvediloL 6.25 MG TAB PO SCH (08:25)
[2020-04-02 08:42] LABS: BUN Creatinine Ratio 24.5 (10-20); Calcium 9.1 mg/dl (8.5-10.1); Creatinine Clr Calc Pharmacy 99.3 ml/min; Est GFR (Non-African American) 86.3; Potassium 4.4 mmol/L (3.5-5.1)
[2020-04-02 08:53] LABS: Basophils # (auto) 0.04 K/uL (0-0.2); Basophils % (auto) 1.6 %; Eosinophils # (auto) 0.09 K/uL (0-0.5); Eosinophils % (auto) 3.6 %; Immature Granulocytes # (auto) 0.01 K/uL (0.00-0.02); Immature Granulocytes % (auto) 0.4 %; Lymphocytes # (auto) 1.12 K/uL (1.2-3.4); Lymphocytes % (auto) 44.3 %; Monocytes # (auto) 0.58 K/uL (0.11-0.59); Monocytes % (auto) 22.9 %; Neutrophils # (auto) 0.69 K/uL (1.4-6.5); Neutrophils % (auto) 27.2 %
[2020-04-02] MEDS ORDERED: ASPIRIN 81 MG ECTAB PO SCH (09:00)
[2020-04-02] MEDS ORDERED: MAGNESIUM OXIDE 400 MG TAB PO SCH (09:00)
--- NOTE | 2020-04-02 10:14 | Neurology Consultation ---
Date of Consultation April 02, 2020 Assessment & Plan (1) Acute CVA (cerebrovascular accident): (2) Slurred speech: (3) Subdural hematoma, post-traumatic: (4) Traumatic brain injury: this patient had the onset of dysarthria the evening of March 28. An MRI of the brain April 01 showed a subacute high left parietal infarct. It appears to be ischemic although I cannot entirely exclude embolic. His history is not necessarily consistent with embolic anyway. He has no known heart issues but an echocardiogram has not been done. Carotid ultrasound was unremarkable but we do not have assessment of his cerebral vasculature otherwise. Currently, he is neurologically quite stable with minimal dysarthria only and no aphasia or other focal neurologic signs or dysfunction. He has no meningeal signs or encephalopathy. Risk factors for stroke include hypertension, diabetes, dyslipidemia, previous cigarette smoking, and Genetics. Recommendations: 1. control risk factors as you are doing and he would be high dose statin candidate. 2. an antiplatelet medication should be initiated. He has GI issues from colon cancer and chemotherapy treatment. I would consider 75 milligrams clopidogrel with this patient instead of 81 milligram aspirin as this may be easier on his GI tract. Nevertheless, he will have hemorrhagic risk with anything we give him. I see no indication for an anticoagulant at this time. 3. Consider additional evaluation with CT angiography of the head and neck and echocardiogram. 4. Increase activity as able. 5. as far as driving is concerned: He should not drive currently because he is just had a stroke. No driving to we see him back in clinic in 1-2 weeks. Overall,I spent a total of 60 minutes with this case including review of records, review of MRI films, direct evaluation of patient at bedside, discussing the case with the patient at bedside, and Dr. Yung including differential diagnosis and treatment options. History of Present Illness Reason for Consultation: patient is a 59-year-old, who I was asked to see at the request of Dr. Yung, for neurologic consultation regarding recent stroke. Requesting Physician: Dr. Yung Attending Physician: Joie Yung MD History of Present Illness patient has a history of metastatic colon cancer in 2016. He has a history of hypertension, type 2 diabetes, and dyslipidemia. In late August of 2018 he had an episode of syncope standing in line somewhere in [facility]. He hit his head and had a left occipital skull fracture. There were multiple areas of intra cerebral contusion/hemorrhage and a right subdural hematoma. This was seen on MRI of the brain in September 09, 2018. he saw Dr. Gayle in October of 2018 and showed no signs of post concussive syndrome at that time. By November of 2018 MRI showed clearing of the subdural and hemorrhages. She last saw him in December of 2018 and cleared him from a neurologic standpoint. Patient states that he went back to work following that accident in June of 2019. 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 On Sunday evening, March 28, he noted some slurred speech. he reasoned that it was due to the chemotherapy was getting for his liver mass. The next morning March 29 he still had some slurred speech and he went to the emergency room in the morning. CT scan of the head showed no acute changes. He had some dysesthesias in his right hand. He ended up being discharged to home. He cont inued to have slurred speech. MRI of the brain April 01 revealed a left anterior parietal acute stroke with multifocal old areas of encephalomalacia in the injury seen in the right hemisphere as before. They were unchanged. I reviewed these films. carotid ultrasound showed no significant vessel stenosis. He was brought to the emergency room electively and was admitted yesterday afternoon. Blood pressure was 150/88 with a pulse 100. He was afebrile. This morning, the patient feels Quite normal although he knows he has some slight slurred speech still. He has no weakness or numbness, vision problems, balance issues, incontinence, memory issues, or confusion CBC and Chem profile were largely unremarkable although his glucose was 140 and he has some mild anemia. Hemoglobin A1c was 5.6. Triglycerides were 358 and total cholesterol 123. Vitamin-D level was low at 19. blood pressure was 116/79 and he remains afebrile. Allergies Allergy/AdvReac Type Severity Reaction Status Date / Time No Known Drug Allergies Allergy Unknown NKDA Verified 04/01/20 13:50 Home Medications Home Medications Medication Instructions Recorded Confirmed Type multivitamin 1 cap PO QAM 06/05/18 04/01/20 History cyanocobalamin (vitamin B-12) 1,000 mcg PO HS #100 cap 04/01/19 04/01/20 History 1,000 mcg capsule omega 0-ogv-qqt-fish oil 1,000 mg 2 cap PO QAM cap 04/21/19 04/01/20 History (120 mg-180 mg) capsule carvedilol 6.25 mg tablet 6.25 mg PO BID #180 tab 09/25/19 04/01/20 Rx metformin 1,000 mg tablet 1,000 mg PO BID #180 tab 10/08/19 04/01/20 Rx Victoza 2-Ben 1.2 mg SQ QAM 01/05/20 04/01/20 History cholecalciferol (vitamin D3) 50 50 mcg PO HS 01/05/20 04/01/20 History mcg (2,000 unit) capsule lisinopril 10 mg tablet 5 mg PO HS tab 01/05/20 04/01/20 History magnesium oxide 400 mg PO QAM 01/05/20 04/01/20 History peg 3350-electrolytes 236 240 ml PO Q10M #4000 ml 03/26/20 04/01/20 Rx gram-22.74 gram-6.74 gram-5.86 gram solution atorvastatin 20 mg tablet 20 mg PO QPM #90 tab 03/30/20 04/01/20 Rx fenofibrate 160 mg tablet 160 mg PO PM #90 tab 03/30/20 04/01/20 Rx Patient History Medical History Cancer 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 states it was from his chemotherapy he recently had and stopped 03/16/20 for the liver lesion. pt to f/u with pcp 03/30/20 Hyperlipidemia Hypertension Lesion of liver Obesity Subdural hematoma, post-traumatic 02/2019. Resolved on 03/24/[address] Surgical History History of bowel resection d/t cancer History of colonoscopy with polypectomy History of colostomy [place] [facility] [place] History of colostomy reversal 2018 @ [facility] [place] with hernia repair History of liver biopsy legion of growth on liver, currently waiting to have surgical removed History of vascular access device hx of mediport currently in place on left chest Port-A-Cath in place (01/08/20) Insertion of Right Subclavian Mediport with Fluoroscopy, Removal of Left Subclavian Mediport Dr. Dye 01/08/20 Family History Mother , age 77 of melanoma. Bipolar disorder Cardiac disorder Breast cancer Cancer of kidney Hypertension Family history of diabetes mellitus Father Cardiac disorder Heart problem Hypertension Breast cancer Sister Breast cancer Other No family history of adverse response to anesthesia Social History Smoking Status: Former smoker Age Quit Using Tobacco: 39; Number of Years Since Quit: 20; Second Hand Exposure: No; Do You Dip or Chew Tobacco: No; Tobacco Cessation Education Requested by Patient: No Hx Alcohol Use: No Hx Substance Use: No Preferred Language: Pashto Communication Ability: Effective Visual Impairment: No Limitations 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 Beliefs That Will Affect Care: None marital status: Legally Current Living Situation: Family Current Living Situation Comment: Lives with 17 yr old daughter current occupational status: employed 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 Other Information That Helps Us Care for You: No Feels Safe at Home: Yes Safety Concerns: Feels Safe At This Time Dental Care, Regularly: Yes Physical Activity Frequency: 3-4 Times per Week Review of Systems Constitutional: no fever, no fatigue and no weakness Eyes: no diplopia, no eye pain and no worsening vision Ear, Nose, Mouth, Throat: no ear pain, no tinnitus, no hearing loss, no dizziness, no snoring, no hoarseness and no dysphagia Respiratory: no cough and no dyspnea Cardiovascular: no chest pain, no palpitations and no lightheadedness Gastrointestinal: no abdominal pain, no nausea and no vomiting Genitourinary: no dysuria and no urinary incontinence Musculoskeletal: no back pain, no neck pain, no radicular pain, no joint pain and no myalgia Integumentary: no rash and no lesions Neurologic: no gait abnormality, no localized weakness, no generalized weakness, no tingling, no numbness, no tremor(s), no abnormal movements, no headache(s), no abnormal speech, no confusion and no memory loss Psychiatric: no depression, no irritability, no anxiety, no difficulty concentrating, no confusion and no hallucinations Endocrine: no fatigue and no flushing Hematologic / Lymphatic: no easy bleeding and no easy bruising Allergy / Immunological: no urticaria and no problem reported Exam (Neuro) Physical Exam: The patient is right-handed. The patient is awake, alert, and attentive. Speech is normal without any aphasia , but he has some very mild dysarthria. he can name objects, repeat phrases, and has normal spontaneous speech. Mentation and thought processes are intact, with orientation to person, place and time, and normal fund of knowledge. Attention and concentration are normal. Mood and affect are normal and appropriate. General appearance and grooming are normal. Short and long-term memory are intact. Pupils are 4 mm bilaterally and reactive to light. Extraocular eye muscles are intact without nystagmus. Visual acuity and visual arteaga seem normal grossly to confrontation. There are no deficits to sensation in the face in all 3 distributions of the fifth cranial nerve bilaterally. Corneal reflexes are positive bilaterally. Facial strength and symmetry was normal bilaterally. Hearing seems normal to whisper and finger rub bilaterally. Palate moves well without asymmetry. There is normal sternocleidomastoid and trapezius (shoulder shrug) strength bilaterally. Tongue is midline with good strength bilaterally. Neck has a full range of motion without discomfort. There are no cervical bruits bilaterally. There are no cranial or ocular bruits. Heart is without murmur. There is a regular rhythm and rate. Cervical, thoracic, and lumbar spine are nontender to palpation. Gait is narrow based, with good arm swing, turns, and stance. Balance is normal eyes open or closed. With outstretched arms there is no drift. There are no resting, postural, or action tremors. There is no ataxia with finger to nose testing. There is good facility in the hands. No other abnormal involuntary movements are noted. Motor strength is 5/5 diffusely in the arms bilaterally including deltoids, biceps, triceps, brachioradialis, wrist flexors and extensors, scheduling representative, and intrinsic hand muscles. Motor strength is 5/5 diffusely in the legs bilaterally including hip flexors, quadriceps, hamstrings, gastrocnemius, tibialis anterior, tibialis posterior, and Peroneii muscles. Toe extensors are normal and there is good bulk in the extensor digitorum brevis muscles bilaterally. The limbs have good tone without rigidity or spasticity. There is no atrophy noted in the muscles. Muscle bulk is normal, there is no tenderness to palpation, no myotonia to percussion, and no fasciculations seen. Sensory examination is intact to touch and pin throughout all 4 limbs diffusely. Reflexes are 2/4 in the biceps, triceps, brachioradialis, quadriceps, and Achilles tendons bilaterally. There is no clonus bilaterally. Toes are downgoing with plantar stimulation bilaterally. Peripheral pulses are present and of normal quality distally in all 4 limbs. There is no peripheral edema noted in the limbs. Results & Data ([facility]) Vital Signs (Past 12 Hours) Vital Signs Temp Pulse Pulse Pulse Resp BP Pulse Ox 04/02/20 07:24 36.4 C L 68 18 116/79 97 04/02/20 04:59 77 04/02/20 04:39 36.8 C 66 20 111/67 98 04/02/20 03:57 71 04/02/20 02:54 72 04/02/20 01:43 106 H Pulse Ox 04/02/20 07:24 04/02/20 04:59 04/02/20 04:39 04/02/20 03:57 04/02/20 02:54 99 04/02/20 01:43 Diagnostic Findings MRI OF THE BRAIN WITHOUT CONTRAST CLINICAL HISTORY: neurological deficit SLURRED SPEECH. HISTORY OF TRAUMATIC BRAIN INJURY. COMPARISON STUDY: Head CT dated 03/29/2020, MRI the brain dated 11/20/2018 FINDINGS: Sagittal T1, axial diffusion, proton density and T2 weighted axial, coronal FLAIR, and axial T1-weighted images were acquired. No intra or extra-axial mass lesions are visualized There is a focus of restricted water diffusion within the left anterior parietal lobe measuring 4 x 1 cm. This is consistent with acute/subacute infarct. There is no evidence of ventricular dilatation. Proton density T2-weighted and FLAIR images reveal scattered foci of increased T2 signal within the white matter, likely on a small vessel basis. There is increased FLAIR signal in the region of the acute/subacute left parietal lobe infarct. There is right temporal lobe and bifrontal encephalomalacia. There is a stable cortical focus of increased FLAIR signal within the right frontoparietal region, likely secondary to an area of posttraumatic encephalomalacia There are no abnormal flow voids. IMPRESSION: 1. Acute/subacute left anterior parietal lobe infarct 2. 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 ACT 112: Negative or not required by law. Electronically signed by: Tomasz Lopez M.D. 04/01/2020 11:34 AM PG Care Time/CCT Total # of Minutes Spent Total Time Spent with Patient: Total time spent is greater than 50% in coordination of care (as documented) at patient's floor/unit and/or counseling patient: Coding Level of Care Code 75049 Inpt Consult Level 4 Diagnoses Acute CVA (cerebrovascular accident) I63.9 Slurred speech R47.81 Subdural hematoma, post-traumatic S06.5X9A Traumatic brain injury S06.9X9A Time Spent (min) 60
[2020-04-02] MEDS ORDERED: OPTIRAY 320 125ml IV ONE (10:57)
--- NOTE | 2020-04-02 11:12 | CT Scan Report ---
CT angio head w con HISTORY: stroke TECHNIQUE: Multiaxial CT angiography of the head was performed IV contrast: 120 cc Maximum intensi ty projection images were also obtained. A dose lowering technique was utilized adhering to the prin ciples of DOUG. COMPARISON: None. FINDINGS: Visualized intracranial internal carotid arteries, distal vertebral arteries, and basilar a rtery are widely patent. There is no significant stenosis, occlusion, or aneurysm seen within the shahriar ateral ACAs, MCAs, or brusher tender. IMPRESSION: No significant stenosis, occlusion, or aneurysm within the [place] of [place]. ACT 112: Negative or not required by law. The above report was generated using voice recognition software. It may contain grammatical, syntax or spelling errors. Electronically signed by: Derian Lujan M.D. 04/02/2020 11:11 AM
--- NOTE | 2020-04-02 11:17 | CT Scan Report ---
CT angio neck with con HISTORY: Mental status change stroke TECHNIQUE: Multiaxial CT angiography of the neck was performed IV contrast: None. All measurements w ere calculated based on NASCET criteria. Maximum intensity projection images were also obtained. A dose lowering technique was utilized adhering to the principles of ALARA. COMPARISON STUDY: None. FINDINGS: The aortic arch and proximal great vessels are widely patent. There is no critical stenosi s, occlusion, or dissection identified within the bilateral common carotid, internal carotid, or vert ebral arteries. There is 50% narrowing of the right internal carotid artery origin. IMPRESSION: 1. 50% narrowing right internal carotid artery at its origin. 2. Scattered plaque formation bilaterally. 3. No evidence for high-grade stenosis. ACT 112: Negative or not required by law. The above report was generated using voice recognition software. It may contain grammatical, syntax or spelling errors. Electronically signed by: Derian Lujan M.D. 04/02/2020 11:15 AM
[2020-04-02] MEDS: HEPARIN SOD 5,000 UNIT/0.5 ML VIAL SQ SCH (11:40)
[2020-04-02] MEDS ORDERED: STROKE PATIENT DISCHARGE STA ×2 (13:35→18:13)
--- NOTE | 2020-04-02 14:11 | Pharmacy Report ---
Pharmacist Stroke Counseling - Date of Service April 02, 2020 - Scope: Pharmacy has been consulted to provide medication discharge counseling for this patient admitted with ischemic stroke as per the Pharmacist Discharge Counseling for Stroke Patients Protocol. - Medications on Discharge: Home Medications Medication Instructions Recorded Confirmed multivitamin 1 cap PO QAM 06/05/18 04/01/20 cyanocobalamin (vitamin B-12) 1,000 mcg PO HS #100 cap 04/01/19 04/01/20 1,000 mcg capsule omega 4-pcj-nam-fish oil 1,000 mg 2 cap PO QAM cap 04/21/19 04/01/20 (120 mg-180 mg) capsule Victoza 2-Ben 1.2 mg SQ QAM 01/05/20 04/01/20 cholecalciferol (vitamin D3) 50 50 mcg PO HS 01/05/20 04/01/20 mcg (2,000 unit) capsule lisinopril 10 mg tablet 5 mg PO HS tab 01/05/20 04/01/20 magnesium oxide 400 mg PO QAM 01/05/20 04/01/20 New Rx's Medication Instructions Recorded carvedilol 6.25 mg tablet 6.25 mg PO BID #180 tab 09/25/19 metformin 1,000 mg tablet 1,000 mg PO BID #180 tab 10/08/19 peg 3350-electrolytes 236 240 ml PO Q10M #4000 ml 03/26/20 gram-22.74 gram-6.74 gram-5.86 gram solution atorvastatin 20 mg tablet 20 mg PO QPM #90 tab 03/30/20 fenofibrate 160 mg tablet 160 mg PO PM #90 tab 03/30/20 atorvastatin 80 mg PO DAILY 30 Days #30 tab 04/02/20 clopidogrel 75 mg PO DAILY 30 Days #30 tab 04/02/20 - Action: The above medications, specifically ones for stroke treatment/prophylaxis, have been reviewed in detail with the patient and/or patient medical office representative(s) prior to discharge. This includes indication, common adverse reactions, drug interactions, and medication administration. Medication counseling has been employed using the teach-back method to ensure understanding. - Outcome: The patient and/or patient medical office representative(s) have demonstrated understanding of the medications. Thank you for allowing pharmacy to be involved in the care of this patient. Please call [phone] with any additional questions
[2020-04-02] MEDS ORDERED: Nursing to Pharmacy Communication SCH (15:30)
[2020-04-02 15:31] VITALS: BP 128/84; PULSE 79; TEMP 98.6; O2SAT 98
[2020-04-02] MEDS ORDERED: INSULIN ASPART 100 UNITS/ML 3 ML PEN SC SCH (16:30)
--- NOTE | 2020-04-02 17:08 | XCELERA ---
[id number]
--- NOTE | 2020-04-02 18:16 | Discharge Summary ---
Date of Service April 02, 2020 Admission HPI Per Admitting Provider Eloy Michaels is a 59 year old male with a pMHx. of Diabetes, HTN, and history of colon cancer (diagnosed 2017) with liver mass and subdural hematoma in 2017. He came in to the emergency room on Sunday with slurred speech that has improved. He had a negative CT at that time. He was riding his motorcycle today when his sister called him with the results of his MRI and he came to the ER to get evaluated further. He has no prior stroke. He has no weakness, no difficulty ambulating, no headaches, no trouble with vision. He did not remember what happened when he had a subdural hematoma in August 2018, describing it as a syncopal event. November 20, 2018 MRI Brain with and without contrast showed near resolution of intracranial bleed with minimal residual abnormality- right frontal hemorrhagic foci, CT scan of the brain completed March 24, 2019 showing residual encephalomalacia and prior fracture but no acute findings, CT scan of the brain completed March 29, 2020 stable imaging. The patient was diagnosed with colon cancer in 2015. Patient was concerned because he has a colonoscopy scheduled tomorrow with Dr. Rosales. This colonoscopy is scheduled to plan for a laproscopic procedure planned with Dr. Hedrick at [facility]. Social Hx.: - He lives at [place] with his daughter and girlfriend - 20 pack year history of smoking quit 20 years prior - no ETOH use - no recreational drug use Admission Exam Per Admitting Provider Constitutional: well developed and well nourished; no acute distress Eyes: PERRL, conjunctivae normal, anicteric sclerae ENMT: external ear and nose normal, oropharynx normal Neck: normal visual inspection Respiratory: normal respiratory effort, lungs clear to auscultation Cardiovascular: RRR, no murmur, no edema Chest (Breasts): Additional Comments: - left sided port - scar on right side of chest from prior port site Gastrointestinal (Abdomen): normal bowel sounds, soft, nontender, no hepatosplenomegaly - midline surgical scar Musculoskeletal: no cyanosis or clubbing, extremities motor strength 5/5 Neurologic: PERRL, EOMI, accommodation nl, no face palsy, no dysarthria CN 's II-XI intact bilaterally and moves all extremities - some garbled speech Principal Diagnosis stroke PFO Discharge Exam Constitutional well developed and well nourished; no acute distress Eyes PERRL, conjunctivae normal, anicteric sclerae ENMT external ear and nose normal, oropharynx normal Neck normal visual inspection Respiratory normal respiratory effort, lungs clear to auscultation Cardiovascular RRR, no murmur, no edema Gastrointestinal (Abdomen) normal bowel sounds, soft, nontender, no hepatosplenomegaly Musculoskeletal no cyanosis or clubbing, extremities motor strength 5/5 Neurologic PERRL, EOMI, accommodation nl, no face palsy, no dysarthria CN's II-XI intact bilaterally and moves all extremities Discharge Data Allergies Allergy/AdvReac Type Severity Reaction Status Date / Time No Known Drug Allergies Allergy Unknown NKDA Verified 04/01/20 13:50 Consultations 04/01/20 15:58 ED Decision to Admit Stat 04/01/20 21:17 Consult Case Management - Discharge Planning Routine Consult Neurology Routine Ordered Studies 04/01/20 21:17 US carotid doppler BI Urgent 04/02/20 10:13 CT angio head w con Urgent CT angio neck with con Urgent Hospital Course (1) Acute ischemic stroke: 59 yo M w/ pMHx. of diabetes, HTN, HLD, subdural hematoma in 2018 who presented to ER on Sunday with slurred speech that has improved, patient returned to further evaluated after outpatient MRI with findings of subacute stroke. Subacute stroke seen on MRI, deficit included slurred speech MRI BRAIN IMPRESSION: 1. Acute/subacute left anterior parietal lobe infarct 2. 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 - Stroke protocol initiated w/o TPA given patient was outside of the window - increased Atorvastatin to 80mg - Neurology consulted: Patient should not drive until after outpatient follow up evaluation with neurology - TTE with finding of PFO vs. pulmonary shunt - discussed case with Dr. Brennan of cardiology and Dr Beck and they agree that the patient should start Plavix 75mg daily and further outpatient follow up. - will follow up with Neurology Chronic post-traumatic encephalomalacia - baseline function intact. 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 Hedrick and [facility] HTN - Continue home Lisinopril and Carvedilol Diabetes Mellitus II, with last A1C 6 - continue home medication Total Time Total Time Spent Total Time Spent (In Minutes): see attending attestation Discharge Plan Discharge Items Patient Disposition: Home - Self-Care Reason For Visit: SUBACUTE STROKE Discharge Diagnosis: subacute Condition on Discharge: Good Activity: Per Instructions section Non-emergency contact: Primary Care Provider and Neurologist Call non-emergency contact if: your symptoms worsen Follow-up/Referrals: José Miguel Beck MD [Physician] - 04/22/20 3:00 pm (You have a follow up with Neurology April 22 at 3:00pm. Your appt with scheduled with Brandon. Please arrive 15 minute prior to your appt time, and remember to bring your mask. ) Josué Morse MD [Primary Care Provider] - 04/07/20 8:45 am (You have a follow up appt with NAYELI Navarro on SundayApril 07 at 0845. Please arrive 15 minutes prior to appt time. Please remember to bring face maskk. ) Diet: Regular Addtl Attending Provider Instructions: Stroke You came to the hospital for imaging that showed you had a stroke. Your symptoms included slurred speech that have improved. You were seen by Neurology while in the hospital. You had imaging of you head and neck that did show some narrowing. You should not drive until you follow up with neurology. You will start a new dose of your statin, and you will also start another medication that will decrease your chance of having another stroke called clopidogrel or plavix. PFO You were found to have a communication between the right and left side of your heart. This was seen on your ECHO or imaging of your heart. The communication was discussed with neurology and cardiology and they determined the correct medications to decrease your chance of having another stroke in this setting. Diabetes We had you on insulin while you were in the hospital. You can resume you home medications and doses when you leave the hospital. Follow up You will need to have the following follow up appointments: - primary care - in 7 days - neurology If you are not called by Sunday for these appointments please call to arrange them Return precautions If you develop any of the following please call or come in: - worsening symptoms - facial droop - arm or leg weakness - chest pain - palpitations Pending Studies at Discharge: No Stand-Alone Forms: Medications to Prevent Stroke, [facility], Smoking Cessation Medications and DC Order Prescriptions: New clopidogrel 75 mg tablet 75 mg PO DAILY 30 Days Qty: 30 RF: 0 atorvastatin 80 mg tablet 80 mg PO DAILY 30 Days Qty: 30 RF: 0 Continued carvedilol 6.25 mg tablet 6.25 mg PO BID Qty: 180 RF: 1 Hold Instructions: low BP metformin 1,000 mg tablet 1,000 mg PO BID Qty: 180 RF: 1 peg 3350-electrolytes [Golytely] 236-22.74-6.74 -5.86 gram recon soln 240 ml PO Q10M Qty: 4000 RF: 0 fenofibrate 160 mg tablet 160 mg PO PM Qty: 90 RF: 1 cyanocobalamin (vitamin B-12) 1,000 mcg capsule 1,000 mcg PO HS Qty: 100 RF: 0 lisinopril 10 mg tablet 5 mg PO HS RF: 0 cholecalciferol (vitamin D3) 50 mcg (2,000 unit) capsule 50 mcg PO HS RF: 0 multivitamin Capsule 1 cap PO QAM RF: 0 omega 3-dwr-kxq-fish oil [Fish Oil] 1,000 mg (120 mg-180 mg) capsule 2 cap PO QAM RF: 0 Victoza 2-Ben 0.6 mg/0.1 mL (18 mg/3 mL) pen injector 1.2 mg SQ QAM RF: 0 magnesium oxide 400 mg magnesium capsule 400 mg PO QAM RF: 0 Discontinued atorvastatin 20 mg tablet 20 mg PO QPM Qty: 90 RF: 1 Discharge Orders: Discharge Order (Routine); Ordered 04/02/20 Ordered By: Tavo Bolanos Admission Data Admit Date/Time: 04/01/20 17:35 Attending Provider: Joie Yung Admit Provider: Tavo Bolanos Primary Care Provider: Josué Morse V. Other Providers: Angie Desir ; José Miguel Beck Other Interventions: Discharge Summary Assessment (RN) Last Done: 04/02/20 18:44 DC Date/Time DO NOT enter until pt leaves facility: 04/02/20 19:04 Supervising Physician Co-Signing Physician Notes Resident Physician Supervision Note: I independently interviewed and examined the patient and verified the russo history and physical, reviewed labs and image studies, discussed the case with the resident Dr. Bolanos and agree with the findings and care plan. Time spent in discharge 35 min CBC Results Results Complete Blood Count Results: RBC 4.13 M/uL (4.7-6.1) L 04/02/20 WBC 2.53 K/uL (4.8-10.8) L 04/02/20 Hgb 13.0 g/dL (14.0-18.0) L 04/02/20 Hct 37.9 % (42-52) L 04/02/20 Plt Count 140 K/uL (130-400) 04/02/20 Results BMP Results: Sodium 138 mmol/L (136-145) 04/02/20 Potassium 4.4 mmol/L (3.5-5.1) 04/02/20 Chloride 108 mmol/L (98-107) H 04/02/20 BUN 24 mg/dl (7-18) H 04/02/20 Creatinine 0.97 mg/dl (0.6-1.4) 04/02/20 Glucose 140 mg/dl (70-99) H 04/02/20 Resident Activity Tracking Resident Involvement: Resident Care Provided Care Provided: Adult [facility] Medicine
== END 2020-04-02 19:04 | disposition home or self-care (01) ==
LOC: ED 13:34 → INTOOBSV 17:35 → 2N 17:35 → 2W 04-02 02:23

== ENCOUNTER 2025-05-17 13:44 | Observation (INO) ==
[2025-05-17] MEDS: OPTIRAY 320 125ml IV ONE (14:08)
--- NOTE | 2025-05-17 14:29 | XRay Report ---
Exam: Chest one view portable. Reason for exam: Stroke alert Previous studies: Chest x-ray 06/05/2024 FINDINGS: Left MediPort catheter seen. Heart is enlarged. Suboptimal inspiration is been made. Chronic interstitial lung disease as well as a left the area of fibrosis seen in the left lower lobe. Otherwise no new infiltrate or edema is seen. IMPRESSION: 1. Cardiomegaly. 2. Chronic interstitial lung disease with linear fibrosis of the left lower lobe. Electronically signed by Rudolph Ogden 05-17-2025 2:28 PM
--- NOTE | 2025-05-17 14:32 | CT Scan Report ---
EXAMINATION: Head CT without CLINICAL HISTORY: Stroke alert PRIORS: None TECHNIQUE: Contiguous axial images were obtained through the head without the use of intravenous contrast. Sagittal and coronal reformations are supplied. FINDINGS: Appropriate parenchymal volume is noted. Dyer-white differentiation is preserved. No edema or midline shift. No intra-axial or extra-axial hemorrhage. Ventricles are normal in size and configuration. Brainstem and cerebellum have a normal appearance. Calvarium unremarkable. Paranasal sinuses and mastoid air cells are well-pneumatized. Globes are intact. No retrobulbar abnormality. IMPRESSION: No CT evidence of an acute intracranial abnormality. Moderate to severe chronic pansinusitis sparing the sphenoid sinuses, appearing since 2019. Stroke alert protocol was activated. Findings were discussed with Dr. Everett Baeza at 2:24 PM EST on 05/17/2025 Electronically signed by Mary Jane Nobles 05-17-2025 2:32 PM
--- NOTE | 2025-05-17 14:32 | CT Scan Report ---
EXAM: CTA head with CLINICAL HISTORY: Stroke alert TECHNIQUE: Contiguous CTA axial images were obtained through the head after the administration of intravenous contrast. Sagittal and coronal reformations are supplied. PRIORS: None FINDINGS: Moderate to advanced chronic beaulieu sinusitis sparing the sphenoid sinuses. Mild atherosclerotic disease of the internal carotid arteries in the cavernous sinuses without occlusion The vertebral arteries form the basilar artery at the skull base. [place] of [place] is patent. No thrombus or hemodynamically significant stenosis. No aneurysmal dilatation or samaniego aneurysm. No enhancing mass in the brain. IMPRESSION: No CTA evidence of an acute vascular abnormality. Moderate to severe chronic pansinusitis, sparing the sphenoid sinuses, appearing since 2019. Findings were discussed with Dr. Everett Baeza at 2:24 PM EST on 05/17/2025 Electronically signed by Mary Jane Nobles 05-17-2025 2:32 PM
--- NOTE | 2025-05-17 14:32 | CT Scan Report ---
EXAM: CT angio neck with con CLINICAL HISTORY: Stroke alert TECHNIQUE: Contiguous CTA axial images were obtained through the neck with the administration of intravenous contrast. Sagittal and coronal reformations are supplied. MIPS are supplied. COMPARISON: 04/02/2020 FINDINGS: Moderate chronic pansinusitis in the [id number] sparing of the sphenoid sinuses. Findings left-sided aortic arch is present. Appropriate takeoff of the great vessels noted. Moderate atherosclerotic disease of the bilateral carotid artery bulbs and short segment of proximal internal carotid artery noted without high-grade stenosis. The internal carotid arteries enter the skull base normally. No thrombus or evidence of dissection. Vertebral arteries are patent. Left vertebral artery is dominant. Both vertebral arteries form at the skull base to make the basilar artery. IMPRESSION: No CTA evidence of an acute arterial abnormality in the neck. Findings were discussed with Dr. Everett Baeza at 2:24 PM EST on 05/17/2025 Electronically signed by Mary Jane Nobles 05-17-2025 2:31 PM
[2025-05-17 14:36] LABS: Hematocrit (blood only) 26.1 % (42.0-52.0); Hemoglobin 9.0 g/dl (14.0-18.0); Mean Corpuscular Hemoglobin 31.4 pg (25.0-34.0); Mean Corpuscular Volume 90.9 fL (80.0-100.0); Platelet Count 101 K/uL (130-400); RDW Standard Deviation 46.5 fL (36.4-46.3); Red Blood Count 2.87 M/uL (4.70-6.10); White Blood Count 3.93 K/ul (4.8-10.8)
[2025-05-17 14:38] LABS: INR 1.1 (0.9-1.1); Partial Thromboplastin Time 32 Seconds (21-31); Prothrombin Time 12.2 Seconds (9.0-12.0)
[2025-05-17 14:49] LABS: Anion Gap 4.0 (3-11); Blood Urea Nitrogen 27.0 mg/dl (6-23); Calcium 7.4 mg/dl (8.6-10.3); Carbon Dioxide 22.0 mmol/L (21-32); Chloride 108.0 mmol/L (98-107); Creatinine Clr Calc Pharmacy 67.3 ml/min; Glucose 131.0 mg/dl (70-99(Fasting)); Potassium 4.4 mmol/L (3.5-5.1); Sodium 134.0 mmol/L (136-145)
[2025-05-17 14:53] LABS: Alanine Aminotransferase 17.0 U/L (7-52); Albumin Globulin Ratio 0.9 (0.9-2); Alkaline Phosphatase 60.0 U/L (34-104); Bilirubin,Total 0.5 mg/dl (0.2-1.0); Globulin 3.4 gm/dl (2.5-4.0); Magnesium 0.9 mg/dl (1.7-2.4); Total Protein 6.5 gm/dl (6.0-8.3)
--- NOTE | 2025-05-17 15:14 | History & Physical Report ---
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 The slurred speech really started more on the morning of 05/17 as per his partner, Ayla. He denied any focal weakness or numbness anywhere else. He has also had several days of rhinorrhea, sinus pressure, puffiness of his eyes and cheeks and nasal congestion. Denies fevers or chills. His slurred speech was already resolving in the ED-he had a telestroke consult which did not recommend TNKase, but recommended aspirin in addition to his normal Plavix, and to obtain MRI of the brain. His CTA of the head and neck showed moderate atherosclerotic disease in the bilateral carotid artery bulbs but no high-grade stenosis, no LVO or aneurysm. It did also show moderate to severe pansinusitis sparing the sphenoid sinuses. He was found to have severely low magnesium at 0 .9 and this was replaced with IV magnesium. He will be admitted for stroke workup as well as severe hypomagnesemia and acute on chronic sinusitis #Dysarthria-did present with previous stroke in 2020 with similar symptoms and had a left parietal small ischemic stroke. He has a history of intracranial hemorrhage from trauma but has no residual issues from that. He is already on Plavix and high intensity statin and has a history of HTN and DM 2 as risk factors for stroke. CTA head and neck negative for LVO or significant stenoses. Dysarthria could be from acute CVA but also could be from severe hypomagnesemia as well as from acute on chronic sinusitis - Admit to telemetry unit for arrhythmia monitoring - Check MRI of the brain - Continue aspirin and Plavix for TIA even if MRI brain negative for stroke- caution with worsening thrombocytopenia from antineoplastic therapy - Continue high intensity statin, fenofibrate, and check lipid panel - Check HgbA1c in the morning - Neurochecks, NIH stroke scores every shift - Check echo with bubble study-he has note of a PFO in the past - Hold home losartan for permissive hypertension but continue carvedilol #Hypomagnesemia-severely low at 0.9 and chronically low since being on chemotherapy. He has chronic diarrhea from chemotherapy. He frequently has IV magnesium infusions at the cancer center. - Give 6 g of IV magnesium and follow magnesium level in the morning #Acute on chronic sinusitis-with chronic sinusitis noted on previous imaging but with 2 days of sinus pressure, eyelid edema, rhinorrhea and drainage from the eyes - Start Augmentin 875 mg p.o. twice daily x 10-day course given that he is immunosuppressed #Pancytopenia/recurrent metastatic colorectal cancer-hemoglobin low at 9.0 which is around his baseline, normocytic. With leukopenia and thrombocytopenia secondary to antineoplastic therapy as well - Follow CBC - Transfusional support as needed - Caution with antiplatelets if platelets fall below 50 would hold #HTN/HLD-BPs mildly elevated but in the setting of possible stroke will have permissive hypertension - Continue home carvedilol but hold home losartan for now - Continue statin and fenofibrate - Check lipid panel #CKD stage II/hyponatremia/hypocalcemia-creatinine around baseline at 1.2, sodium mildly low at 134. Calcium low but corrects to near normal when corrected for albumin - Giving 1 more liter of normal saline - Follow BMP in the morning #DM 2-he is no longer on metformin as it caused worsening of his diarrhea. He is only on the lowest dose of Mounjaro and follows with endocrinology. 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 The slurred speech really started more on the morning of 05/17 as per his partner, Ayla. He denied any focal weakness or numbness anywhere else. He has also had several days of rhinorrhea, sinus pressure, puffiness of his eyes and cheeks and nasal congestion. Denies fevers or chills. His slurred speech was already resolving in the ED-he had a telestroke consult which did not recommend TNKase, but recommended aspirin in addition to his normal Plavix, and to obtain MRI of the brain. His CTA of the head and neck showed moderate atherosclerotic disease in the bilateral carotid artery bulbs but no high-grade stenosis, no LVO or aneurysm. It did also show moderate to severe pansinusitis sparing the sphenoid sinuses. He was found to have severely low magnesium at 0.9 and this was replaced with IV magnesium. He will be admitted for stroke workup as well as severe hypomagnesemia and acute on chronic sinusitis Allergies Allergy/AdvReac Type Severity Reaction Status Date / Time No Known Drug Allergies Allergy Unknown NKDA Verified 05/17/25 15:37 Home Medications Medication Instructions Recorded Confirmed Type multivitamin 1 cap PO QAM 06/05/18 05/17/25 History cyanocobalamin (vitamin B-12) 1,000 mcg PO HS #100 caps 04/01/19 05/17/25 History 1,000 mcg capsule omega 2-tux-qkk-fish oil 1,000 mg 2 cap PO QAM 04/21/19 05/17/25 History (120 mg-180 mg) capsule (Fish Oil) blood sugar diagnostic (Contour #10 ea 11/25/20 05/14/25 History Next Test Strips) lancets 33 gauge (BD Ultra Fine #100 ea 11/25/20 05/14/25 History Lancets) pen needle, diabetic 32 gauge x #50 ea 12/05/22 05/14/25 Rx 5/32" (BD Flavia 2nd Gen Pen Needle) tamsulosin 0.4 mg capsule 0.4 mg PO QAM #90 caps 07/16/24 05/17/25 Rx fenofibrate 160 mg tablet 160 mg PO PM #90 tabs 01/27/25 05/17/25 Rx clopidogrel 75 mg tablet 75 mg PO QAM #90 tabs 02/01/25 05/17/25 Rx carvedilol 6.25 mg tablet 6.25 mg PO BID #60 tabs 02/25/25 05/17/25 Rx atorvastatin 80 mg tablet 80 mg PO QPM #90 tabs 03/30/25 05/17/25 Rx losartan 100 mg tablet 100 mg PO QAM #90 tabs 04/20/25 05/17/25 Rx tirzepatide 5 mg/0.5 mL 5 mg (0.5 mL) subcut Q7D #2 mL 04/20/25 05/17/25 Rx subcutaneous pen injector (Mounjaro) B Complex 1 tab PO DAILY 05/17/25 05/17/25 History cholecalciferol (vitamin D3) 25 25 mcg PO DAILY 05/17/25 05/17/25 History mcg (1,000 unit) capsule cinnamon bark 500 mg capsule 500 mg PO DAILY 05/17/25 05/17/25 History (Cinnamon) lactobacillus combination no.4 3 3,000 mmu cells PO DAILY 05/17/25 05/17/25 History billion cell capsule (Probiotic) magnesium oxide 800 mg PO QAM 05/17/25 05/17/25 History vitamin E acetate 100 unit capsule 100 unit PO DAILY 05/17/25 05/17/25 History Past Med/Surg History Problem List Dysarthria (Acute) Hypomagnesemia (Acute) Chronic kidney disease Recurrent colorectal cancer Medical History Fatty liver disease, nonalcoholic Obesity Diabetes mellitus type 2 with complications Rectal cancer (12/07/16) PFO with atrial septal aneurysm Possible PFO, Evaluated by [facility] [place]- "Echocardiography performed on April 02, 2020 revealed an interatrial shunt with injection of bubbles. However, this occurred after several cycles. It was felt by the assistant distribution manager reading the echo that it could indicate a possible PFO versus a pulmonary shunt. The atrial septum was aneurysmal... The patient declined any additional workup as he would not be interested in any procedures. event monitor was also without evidence of arrhythmia." Continued on Plavix and advised to f/u PRN History of diverticulosis Positive for macroalbuminuria BPH w urinary obs/LUTS Diabetic neuropathy associated with type 2 diabetes mellitus History of known metastasis to liver S/P liver resection during bowel resection (2019) History of colon cancer History of CVA (cerebrovascular accident) Hyperlipidemia Hypertension Surgical History Port-A-Cath in place (06/05/24) p Left Placement of Subclavian Access Port with Fluoroscopic Guidance, (Left) - [place] Dye, DO s Right Removal of Subclavian Port(Right) - [place] Dye, DO Hx of resection of liver due to mets to liver Hx of hernia repair (~2018) During bowel resection S/P transesophageal echocardiogram ([facility]) Port-A-Cath in place (2019) Right Subclavian Mediport, Removal of Left Subclavian Mediport "Has not been used in several years, has not been flushed" History of liver biopsy result positive mets History of colonoscopy with polypectomy History of colostomy (2017) History of colostomy reversal (2018) with hernia repair History of bowel resection (2018) R/t cancer Family History Mother , age 77 of melanoma. Family history of diabetes mellitus Bipolar disorder Cardiac disorder Cancer of kidney Hypertension Father Cardiac disorder Heart problem Hypertension Heart disease History of quadruple bypass Sister Breast cancer, Onset Age: 56 Chemo/RT Family history of diabetes mellitus Sister No problems noted. Sister No problems noted. Sister No problems noted. Other No family history of adverse response to anesthesia Social History Smoking Status: Never smoker Tobacco Type: Cigarettes Age Started Using Tobacco: 20; Age Quit Using Tobacco: 39; packs per day: 0.5; Cigarettes Per Day: 1/2 PPD; Second Hand Exposure: No; Do You Dip or Chew Tobacco: No; Hx Alcohol Use: No Hx Substance Use: No Preferred Language: Martiniquais Communication Ability: Effective Visual Impairment: No Limitations School Principal Required: No Beliefs That Will Affect Care: None marital status: Life Partner Current Living Situation: Significant Other Current Living Situation Comment: Lives with girlfriend and daughter current occupational status: employed 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 How many Children do You have: 1 Feels Safe at Home: Yes Diet: diabetic and regular caffeine: Yes during the past year weight has: decreased > 10 lbs Dental Care, Regularly: Yes Physical Activity Frequency: 3-4 Times per Week Seatbelt Use: always Do you think of yourself as: straight/heterosexual Gender Identity: Male Assistive Devices: None Review of Systems Review of Systems: All systems reviewed & are unremarkable except as noted in HPI & below Physical Exam Constitutional: WD/WN, vitals as above Eyes: + eyelid abnormality (Lid edema bilatera lly), + conjunctival abnormality (Erythematous OS), PERRL and EOM intact bilaterally; no nystagmus ENMT: Nose: + nasal discharge (Copious clear rhinorrhea) Mouth: no oropharynx abnormality and no tongue abnormality Respiratory: normal respiratory effort, lungs clear to auscultation Cardiovascular: RRR, no murmur, no edema Gastrointestinal (Abdomen): normal bowel sounds, soft, nontender, no hepatosplenomegaly Neurologic: PERRL, EOMI, accommodation nl, no face palsy, no dysarthria CN's II-XI intact bilaterally and moves all extremities; no focal motor deficits and not confused Speech / Cognition: normal speech Motor/Sensory: no tremor and no pronator drift Psychiatric: A+Ox3, euthymic affect Results & Data Results & Data Vital Signs (Past 12 Hours) Vital Signs Temp Pulse Pulse Resp BP BP Pulse Ox 05/17/25 14:31 81 20 117/70 99 05/17/25 14:21 81 05/17/25 14:15 05/17/25 14:13 05/17/25 14:13 81 12 109/79 93 05/17/25 13:50 36.9 C 76 18 100/65 97 O2 Del Method 05/17/25 14:31 05/17/25 14:21 05/17/25 14:15 Room Air 05/17/25 14:13 Room Air 05/17/25 14:13 Room Air 05/17/25 13:50 Room Air Laboratory Results CBC, CMP, magnesium, PT/PTT/INR reviewed Diagnostic Findings Chest X-Ray 05/17/25 13:55 Exam: Chest one view portable. Reason for exam: Stroke alert Previous studies: Chest x-ray 06/05/2024 FINDINGS: Left MediPort catheter seen. Heart is enlarged. Suboptimal inspiration is been made. Chronic interstitial lung disease as well as a left the area of fibrosis seen in the left lower lobe. Otherwise no new infiltrate or edema is seen. IMPRESSION: 1. Cardiomegaly. 2. Chronic interstitial lung disease with linear fibrosis of the left lower lobe. Electronically signed by Rudolph Ogden 05-17-2025 2:[address] 05/17/25 13:55 EXAMINATION: Head CT without CLINICAL HISTORY: Stroke alert PRIORS: None TECHNIQUE: Contiguous axial images were obtained through the head without the use of intravenous contrast. Sagittal and coronal reformations are supplied. FINDINGS: Appropriate parenchymal volume is noted. Dyer-white differentiation is preserved. No edema or midline shift. No intra-axial or extra-axial hemorrhage. Ventricles are normal in size and configuration. Brainstem and cerebellum have a normal appearance. Calvarium unremarkable. Paranasal sinuses and mastoid air cells are well-pneumatized. Globes are intact. No retrobulbar abnormality. IMPRESSION: No CT evidence of an acute intracranial abnormality. Moderate to severe chronic pansinusitis sparing the sphenoid sinuses, appearing since 2019. Stroke alert protocol was activated. Findings were discussed with Dr. Everett Baeza at 2:24 PM EST on 05/17/2025 Electronically signed by Mary Jane Nobles 05-17-2025 2:32 PM Head CTA 05/17/25 13:58 EXAM: CTA head with CLINICAL HISTORY: Stroke alert TECHNIQUE: Contiguous CTA axial images were obtained through the head after the administration of intravenous contrast. Sagittal and coronal reformations are supplied. PRIORS: None FINDINGS: Moderate to advanced chronic beaulieu sinusitis sparing the sphenoid sinuses. Mild atherosclerotic disease of the internal carotid arteries in the cavernous sinuses without occlusion The vertebral arteries form the basilar artery at the skull base. [place] is patent. No thrombus or hemodynamically significant stenosis. No aneurysmal dilatation or samaniego aneurysm. No enhancing mass in the brain. IMPRESSION: No CTA evidence of an acute vascular abnormality. Moderate to severe chronic pansinusitis, sparing the sphenoid sinuses, appearing since 2019. Findings were discussed with Dr. Everett Baeza at 2:24 PM EST on 05/17/2025 Electronically signed by Mary Jane Nobles 05-17-2025 2:32 PM Neck CTA 05/17/25 13:58 EXAM: CT angio neck with con CLINICAL HISTORY: Stroke alert TECHNIQUE: Contiguous CTA axial images were obtained through the neck with the administration of intravenous contrast. Sagittal and coronal reformations are supplied. MIPS are supplied. COMPARISON: 04/02/2020 FINDINGS: Moderate chronic pansinusitis in the [id number] sparing of the sphenoid sinuses. Findings left-sided aortic arch is present. Appropriate takeoff of the great vessels noted. Moderate atherosclerotic disease of the bilateral carotid artery bulbs and short segment of proximal internal carotid artery noted without high-grade stenosis. The internal carotid arteries enter the skull base normally. No thrombus or evidence of dissection. Vertebral arteries are patent. Left vertebral artery is dominant. Both vertebral arteries form at the skull base to make the basilar artery. IMPRESSION: No CTA evidence of an acute arterial abnormality in the neck. Findings were discussed with Dr. Everett Baeza at 2:24 PM EST on 05/17/2025 Electronically signed by Mary Jane Nobles 05-17-2025 2:31 PM ECG Additional Comments: ECG on 05/17/2025 at 1423 with normal sinus rhythm, normal rate, no acute ischemic changes Code Status & VTE Plan Code Status DNR/DNI VTE Prophylaxis Plan VTE Prophylaxis will be ordered: Yes PG Care Time/CCT Total # of Minutes Spent Total Time Spent with Patient: Total time spent is greater than 50% in coordination of care (as documented) at patient's floor/unit and/or counseling patient: Coding Level of Care Code 83850 INT INP/OBS CARE 3/75MIN Diagnoses Dysarthria R47.1 Hypomagnesemia E83.42 Chronic kidney disease N18.9 Diabetes mellitus type 2 with complications E11.8
[2025-05-17] MEDS: ASPIRIN CHEW 324 MG PO STA (15:30)
[2025-05-17] MEDS: MAGNESIUM SULFATE / D5W 1 GM/100 ML BAG IV SCH ×2 (15:35→20:31)
[2025-05-17] MEDS: GADOBUTROL 30ML VIAL IV ONE (16:55)
--- NOTE | 2025-05-17 16:56 | Emergency Department Note ---
History of Present Illness General Chief complaint: TIA Symptoms Stated complaint: STROKE LIKE SYMPTOMS BALANCE SPEECH Time Seen by Provider: 05/17/25 13:57 Source: patient and family ( at bedside) History of Present Illness Provider complaint: Slurred speech 64-year-old male presents emergency department for slurred speech. EMS and reported the patient's symptoms began at 11 AM. On further questioning of the , the patient's states she noticed at 11 AM when she woke up however the patient had been awake prior to that. No recent falls or traumas. No numbness or tingling. reports that the patient has been off balance for the last week having difficulty walking. History of stroke. On Plavix. Currently undergoing treatment for colon cancer. Home Medications Medication Instructions Recorded Confirmed Type multivitamin 1 cap PO QAM 06/05/18 05/17/25 History cyanocobalamin (vitamin B-12) 1,000 mcg PO HS #100 caps 04/01/19 05/17/25 History 1,000 mcg capsule omega 3-wcy-jlo-fish oil 1,000 mg 2 cap PO QAM 04/21/19 05/17/25 History (120 mg-180 mg) capsule (Fish Oil) blood sugar diagnostic (Contour #10 ea 11/25/20 05/14/25 History Next Test Strips) lancets 33 gauge (BD Ultra Fine #100 ea 11/25/20 05/14/25 History Lancets) pen needle, diabetic 32 gauge x #50 ea 12/05/22 05/14/25 Rx 5/32" (BD Flavia 2nd Gen Pen Needle) tamsulosin 0.4 mg capsule 0.4 mg PO QAM #90 caps 07/16/24 05/17/25 Rx fenofibrate 160 mg tablet 160 mg PO PM #90 tabs 01/27/25 05/17/25 Rx clopidogrel 75 mg tablet 75 mg PO QAM #90 tabs 02/01/25 05/17/25 Rx carvedilol 6.25 mg tablet 6.25 mg PO BID #60 tabs 02/25/25 05/17/25 Rx atorvastatin 80 mg tablet 80 mg PO QPM #90 tabs 03/30/25 05/17/25 Rx losartan 100 mg tablet 100 mg PO QAM #90 tabs 04/20/25 05/17/25 Rx tirzepatide 5 mg/0.5 mL 5 mg (0.5 mL) subcut Q7D #2 mL 04/20/25 05/17/25 Rx subcutaneous pen injector (Rain) B Complex 1 tab PO DAILY 05/17/25 05/17/25 History cholecalciferol (vitamin D3) 25 25 mcg PO DAILY 05/17/25 05/17/25 History mcg (1,000 unit) capsule cinnamon bark 500 mg capsule 500 mg PO DAILY 05/17/25 05/17/25 History (Cinnamon) lactobacillus combination no.4 3 3,000 mmu cells PO DAILY 05/17/25 05/17/25 History billion cell capsule (Probiotic) magnesium oxide 800 mg PO QAM 05/17/25 05/17/25 History vitamin E acetate 100 unit capsule 100 unit PO DAILY 05/17/25 05/17/25 History Allergies Allergy/AdvReac Type Severity Reaction Status Date / Time No Known Drug Allergies Allergy Unknown NKDA Verified 05/17/25 15:37 Past Med/Surg History Problem List (Updated 05/17/25 @ 17:09 by Everett Baeza MD) Dysarthria (Acute) Hypomagnesemia (Acute) Chronic kidney disease Recurrent colorectal cancer Medical History Fatty liver disease, nonalcoholic Obesity Diabetes mellitus type 2 with complications Rectal cancer (12/07/16) PFO with atrial septal aneurysm Possible PFO, Evaluated by [facility] 07/2020- "Echocardiography performed on April 02, 2020 revealed an interatrial shunt with injection of bubbles. However, this occurred after several cycles. It was felt by the research methodologist reading the echo that it could indicate a possible PFO versus a pulmonary shunt. The atrial septum was aneurysmal... The patient declined any additional workup as he would not be interested in any procedures. event monitor was also without evidence of arrhythmia." Continued on Plavix and advised to f/u PRN History of diverticulosis Positive for macroalbuminuria BPH w urinary obs/LUTS Diabetic neuropathy associated with type 2 diabetes mellitus History of known metastasis to liver S/P liver resection during bowel resection (2019) History of colon cancer History of CVA (cerebrovascular accident) Hyperlipidemia Hypertension Surgical History Port-A-Cath in place (10/03/24) p Left Placement of Subclavian Access Port with Fluoroscopic Guidance, (Left) - [place] Dye, DO s Right Removal of Subclavian Port(Right) - [place] Dye, DO Hx of resection of liver due to mets to liver Hx of hernia repair (~2018) During bowel resection S/P transesophageal echocardiogram ([facility]) Port-A-Cath in place (2019) Right Subclavian Mediport, Removal of Left Subclavian Mediport "Has not been used in several years, has not been flushed" History of liver biopsy result positive mets History of colonoscopy with polypectomy History of colostomy (2018) History of colostomy reversal (2018) with hernia repair History of bowel resection (2019) R/t cancer Family History Mother , age 77 of melanoma. Family history of diabetes mellitus Bipolar disorder Cardiac disorder Cancer of kidney Hypertension Father Cardiac disorder Heart problem Hypertension Heart disease History of quadruple bypass Sister Breast cancer, Onset Age: 56 Chemo/RT Family history of diabetes mellitus Sister No problems noted. Sister No problems noted. Sister No problems noted. 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 President Required: No Beliefs That Will Affect Care: None marital status: Life Partner Current Living Situation: Significant Other Current Living Situation Comment: Lives with girlfriend and daughter current occupational status: employed 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 How many Children do You have: 1 Feels Safe at Home: Yes Diet: diabetic and regular caffeine: Yes during the past year weight has: decreased > 10 lbs Dental Care, Regularly: Yes Physical Activity Frequency: 3-4 Times per Week Seatbelt Use: always Do you think of yourself as: straight/heterosexual Gender Identity: Male Assistive Devices: None Physical Exam Vital Signs Vital Signs - 24 hr 05/17/25 13:50 05/17/25 14:13 05/17/25 14:13 Temperature 36.9 C Temperature Source Temporal Artery Scan Pulse Rate 76 Pulse Rate [Apical] 81 Respiratory Rate 18 12 Respiratory Effort / Characteristics Non-Labored Spontaneous Respiratory Depth Normal Blood Pressure 100/65 Blood Pressure [Left Arm] 109/79 Blood Pressure Mean 76 Blood Pressure Mean [Left Arm] 89 Blood Pressure Position Sitting Pulse Oximetry 97 93 Oxygen Delivery Method Room Air Room Air Room Air Sepsis Recent Fever Within 48 Hours No Sepsis New/Unexplained Change in Mental Status N/A Sepsis Action Taken by Nursing No Action Required 05/17/25 14:15 05/17/25 14:21 05/17/25 14:31 Temperature Temperature Source Pulse Rate 81 Pulse Rate [Apical] 81 Respiratory Rate 20 Respiratory Effort / Characteristics Respiratory Depth Blood Pressure Blood Pressure [Left Arm] 117/70 Blood Pressure Mean Blood Pressure Mean [Left Arm] 85 Blood Pressure Position Pulse Oximetry 99 Oxygen Delivery Method Room Air Sepsis Recent Fever Within 48 Hours Sepsis New/Unexplained Change in Mental Status Sepsis Action Taken by Nursing Physical Exam GENERAL: oriented to person, place, and time. appears well-developed and well- nourished. HENT: Exam performed. - Head: Normocephalic and atraumatic. EYES: Conjunctivae and EOM are normal. Right eye exhibits no discharge. Left eye exhibits no discharge. No scleral icterus. NECK: Normal range of motion. Neck supple. No JVD present. CV: Normal rate, regular rhythm, normal heart sounds and intact distal pulses. There is no peripheral edema. Palpable radial pulses bue. PULM/CHEST: Effort normal and breath sounds normal. No respiratory distress. No stridor. no wheezes. no rales. ABD: The abdomen is soft. There is no tenderness. NEURO:NIHSS 1: (10:1) Course Course 1357: The patient was evaluated in room B1. A complete history and physical exam was performed Cardiac monitoring: An order was placed for continuous cardiac monitoring. The monitor shows a rate of 80 with sinus rhythm interpreted by me Code stroke called from triage. 1402: CT of the head viewed by me shows no ICH. 1435: Teleradiology called to let me know that CT head and CT angio head and neck are negative. Dr. Krysten Gallegos telestroke was made aware of this and will evaluate the patient via telestroke cart. 1455: Patient was evaluated by Dr. Krysten Gallegos telestroke. She recommends no TNKase. She recommends baby aspirin. Patient's magnesium came back at 0.9. Magnesium repletion will be started in addition and the patient will be admitted to the [facility] team for stroke workup including MRI with and without contrast. Administered Medications Discontinued Medications Aspirin (Aspirin Chew 324 Mg) 81 mg PO NOW STA Stop: 05/17/25 14:55 Last Admin: 05/17/25 15:30 Dose: 81 mg Documented By: ISIAH Gadobutrol (Gadobutrol 30ml Vial) 9 ml IV ONCE ONE Stop: 05/17/25 16:55 Last Admin: 05/17/25 16:55 Dose: 9 ml Documented By: TRACEY Magnesium Sulfate/Dextrose (Magnesium Sulfate / D5w) 1 gm in 100 mls @ 100 mls/hr IV Q1H BRITTANY Stop: 05/17/25 16:55 Last Admin: 05/17/25 15:35 Dose: 100 mls/hr Documented By: ISIAH Ioversol (Optiray 320 125ml) 120 ml IV ONCE ONE Stop: 05/17/25 14:09 Last Admin: 05/17/25 14:08 Dose: 120 ml Documented By: ARIEL Medical Decision Making Laboratory Data Attestation: I reviewed the patient's lab results. 05/17/25 14:15 05/17/25 14:15 Lab Results 05/17/25 05/17/25 05/17/25 Range/Units 14:13 14:15 14:21 WBC 3.93 L (4.8-10.8) K/ul RBC 2.87 L (4.70-6.10) M/uL Hgb 9.0 L (14.0-18.0) g/dl POC Hgb 8.8 L (14.0-18.0) g/dl Hct 26.1 L (42.0-52.0) % POC Hct 26 L (42-52) % MCV 90.9 (80.0-100.0) fL MCH 31.4 (25.0-34.0) pg MCHC 34.5 (32.0-36.0) g/dL RDW Std Deviation 46.5 H (36.4-46.3) fL RDW Coeff of Marcelina 14.2 (11.5-14.5) % Plt Count 101 L (130-400) K/uL MPV 10.0 (9.4-12.4) fL PT 12.2 H (9.0-12.0) Seconds INR 1.1 (0.9-1.1) APTT 32 H (21-31) Seconds PTT Ratio 1.2 POC Sodium 139 (135-144) mmol/L Sodium 134 L (136-145) mmol/L POC Potassium 4.6 (3.3-5.0) mmol/L Potassium 4.4 (3.5-5.1) mmol/L POC Chloride 107 (101-112) mmol/L Chloride 108 H (98-107) mmol/L Carbon Dioxide 22 (21-32) mmol/L POC Total CO2 19 L (24-31) mmol/L Anion Gap 4 (3-11) POC Anion Gap 19.0 (16-25) mmol/L POC BUN 27 H (7-18) mg/dl BUN 27 H (6-23) mg/dl Creatinine 1.28 (0.6-1.4) mg/dl POC Creatinine 1.4 H (0.6-1.3) mg/dl Est Cr Clr Drug Dosing 67.3 ml/min eGFR 63.28 BUN/Creatinine Ratio 21.1 H (10-20) Glucose 131 H (70-99(Fasting)) mg/dl POC Glucose 142 H (70-99) mg/dl POC Glucose (other) 125 H (70-99) mg/dl Calcium 7.4 L (8.6-10.3) mg/dl POC Ioniz Calcium Alana 1.15 (1.12-1.32) mmol/l Magnesium 0.9 L* (1.7-2.4) mg/dl Total Bilirubin 0.5 (0.2-1.0) mg/dl AST 25 (13-39) U/L ALT 17 (7-52) U/L Alkaline Phosphatase 60 (34-104) U/L Total Protein 6.5 (6.0-8.3) gm/dl Albumin 3.1 L (3.4-5.0) gm/dl Globulin 3.4 (2.5-4.0) gm/dl Albumin/Globulin Ratio 0.9 (0.9-2) Imaging Data Attestation: I personally reviewed and interpreted this imaging study as follows: My Impression: CT head: No ICH Radiologist's Impression: Chest X-Ray 05/17/25 13:55 Exam: Chest one view portable. Reason for exam: Stroke alert Previous studies: Chest x-ray 06/05/2024 FINDINGS: Left MediPort catheter seen. Heart is enlarged. Suboptimal inspiration is been made. Chronic interstitial lung disease as well as a left the area of fibrosis seen in the left lower lobe. Otherwise no new infiltrate or edema is seen. IMPRESSION: 1. Cardiomegaly. 2. Chronic interstitial lung disease with linear fibrosis of the left lower lobe. Electronically signed by Rudolph Ogden 05-17-2025 2:[address] 05/17/25 13:55 EXAMINATION: Head CT without CLINICAL HISTORY: Stroke alert PRIORS: None TECHNIQUE: Contiguous axial images were obtained through the head without the use of intravenous contrast. Sagittal and coronal reformations are supplied. FINDINGS: Appropriate parenchymal volume is noted. Dyer-white differentiation is preserved. No edema or midline shift. No intra-axial or extra-axial hemorrhage. Ventricles are normal in size and configuration. Brainstem and cerebellum have a normal appearance. Calvarium unremarkable. Paranasal sinuses and mastoid air cells are well-pneumatized. Globes are intact. No retrobulbar abnormality. IMPRESSION: No CT evidence of an acute intracranial abnormality. Moderate to severe chronic pansinusitis sparing the sphenoid sinuses, appearing since 2019. Stroke alert protocol was activated. Findings were discussed with Dr. Everett Baeza at 2:24 PM EST on 05/17/2025 Electronically signed by Mary Jane Nobles 05-17-2025 2:32 PM Head CTA 05/17/25 13:58 EXAM: CTA head with CLINICAL HISTORY: Stroke alert TECHNIQUE: Contiguous CTA axial images were obtained through the head after the administration of intravenous contrast. Sagittal and coronal reformations are supplied. PRIORS: None FINDINGS: Moderate to advanced chronic beaulieu sinusitis sparing the sphenoid sinuses. Mild atherosclerotic disease of the internal carotid arteries in the cavernous sinuses without occlusion The vertebral arteries form the basilar artery at the skull base. Peetz of [place] is patent. No thrombus or hemodynamically significant stenosis. No aneurysmal dilatation or samaniego aneurysm. No enhancing mass in the brain. IMPRESSION: No CTA evidence of an acute vascular abnormality. Moderate to severe chronic pansinusitis, sparing the sphenoid sinuses, appearing since 2019. Findings were discussed with Dr. Everett Baeza at 2:24 PM EST on 05/17/2025 Electronically signed by Mary Jane Nobles 05-17-2025 2:32 PM Neck CTA 05/17/25 13:58 EXAM: CT angio neck with con CLINICAL HISTORY: Stroke alert TECHNIQUE: Contiguous CTA axial images were obtained through the neck with the administration of intravenous contrast. Sagittal and coronal reformations are supplied. MIPS are supplied. COMPARISON: 04/02/2020 FINDINGS: Moderate chronic pansinusitis in the [id number] sparing of the sphenoid sinuses. Findings left-sided aortic arch is present. Appropriate takeoff of the great vessels noted. Moderate atherosclerotic disease of the bilateral carotid artery bulbs and short segment of proximal internal carotid artery noted without high-grade stenosis. The internal carotid arteries enter the skull base normally. No thrombus or evidence of dissection. Vertebral arteries are patent. Left vertebral artery is dominant. Both vertebral arteries form at the skull base to make the basilar artery. IMPRESSION: No CTA evidence of an acute arterial abnormality in the neck. Findings were discussed with Dr. Everett Baeza at 2:24 PM EST on 05/17/2025 Electronically signed by Mary Jane Nobles 05-17-2025 2:31 PM ECG Data Attestation: I personally reviewed and interpreted this ECG as follows: Rate (beats per minute): 81 Rhythm: + normal sinus ECG Intervals/blocks: + Normal QRS, + Normal ID and + Normal QT-c ECG ST segments: + Normal ST segments MDM Narrative 1357: The patient was evaluated in room B1. A complete history and physical exam was performed Cardiac monitoring: An order was placed for continuous cardiac monitoring. The monitor shows a rate of 80 with sinus rhythm interpreted by me Code stroke called from triage. 1402: CT of the head viewed by me shows no ICH. 1435: Teleradiology called to let me know that CT head and CT angio head and neck are negative. Dr. Krysten Gallegos telestroke was made aware of this and will evaluate the patient via telestroke cart. 1455: Patient was evaluated by Dr. Krysten Gallegos telestroke. She recommends no TNKase. She recommends baby aspirin. Patient's magnesium came back at 0.9. Magnesium repletion will be started in addition and the patient will be admitted to the [facility] hospitalist team for stroke workup including MRI with and without contrast. Impression & Plan Hypomagnesemia, Dysarthria Discharge Plan Visit Data Chief Complaint: TIA Symptoms Stated Complaint: STROKE LIKE SYMPTOMS BALANCE SPEECH ED Provider: Everett Baeza Discharge Problem: Hypomagnesemia, Dysarthria Patient Disposition: Admitted As Inpatient Condition: Fair Forms Stand Alone Forms: [facility] Prescriptions Prescriptions: No Action tamsulosin 0.4 mg capsule 0.4 mg PO QAM Qty: 90 3RF fenofibrate 160 mg tablet 160 mg PO PM Qty: 90 1RF clopidogrel 75 mg tablet 75 mg PO QAM Qty: 90 3RF Hold Instructions: Resume on 06/07/24. carvedilol 6.25 mg tablet 6.25 mg PO BID Qty: 60 5RF Hold Instructions: low BP atorvastatin 80 mg tablet 80 mg PO QPM Qty: 90 1RF losartan 100 mg tablet 100 mg PO QAM Qty: 90 3RF Mounjaro 5 mg/0.5 mL pen injector 5 mg SUBCUT Q7D Qty: 2 3RF cyanocobalamin (vitamin B-12) 1,000 mcg capsule 1,000 mcg PO HS Qty: 100 (DME) pen needle, diabetic [BD Flavia 2nd Gen Pen Needle] 32 gauge x 5/32" needle See Rx Instructions .Route Qty: 50 0RF Rx Instructions: Once weekly for ozempic (DME) lancets [BD Ultra Fine Lancets] 33 gauge misc See Rx Instructions .ROUTE .MEDSUPPLY Qty: 100 Rx Instructions: testing 2 X daily (DME) Contour Next Test Strips Strip See Rx Instructions .ROUTE .MEDSUPPLY Qty: 10 Rx Instructions: 2Xd multivitamin Capsule 1 cap PO QAM omega 2-eeh-qkw-fish oil [Fish Oil] 1,000 mg (120 mg-180 mg) capsule 2 cap PO QAM magnesium oxide 400 mg magnesium capsule 800 mg PO QAM B Complex 1 tab PO DAILY cholecalciferol (vitamin D3) 25 mcg (1,000 unit) Capsule 25 mcg PO DAILY cinnamon bark [Cinnamon] 500 mg Capsule 500 mg PO DAILY Probiotic 3 billion cell Capsule 3,000 mmu cells PO DAILY Rx Instructions: administer with a meal vitamin E acetate 100 unit Capsule 100 unit PO DAILY Referrals Referrals: Josué Morse MD [Primary Care Provider] -
[2025-05-17 17:37] LABS: Chlamydia pneumoniae PCR Not Detected (NotDetected); Coronavirus 229E PCR Not Detected (NotDetected); Coronavirus CoV-2 (COVID19)PCR Not Detected (NotDetected); Coronavirus HKU1 PCR Not Detected (NotDetected); Coronavirus NL63 PCR Not Detected (NotDetected); Coronavirus OC43PCR Not Detected (NotDetected); Human Metapneumovirus PCR Not Detected (NotDetected); Parainfluenza Virus 1 PCR Not Detected (NotDetected); Parainfluenza Virus 2 PCR Not Detected (NotDetected); Parainfluenza Virus 3 PCR Not Detected (NotDetected); Parainfluenza Virus 4 PCR Not Detected (NotDetected); Respiratory Syncytial VirusPCR Not Detected (NotDetected); Rhinovirus/Enterovirus PCR Not Detected (NotDetected)
[2025-05-17] MEDS: SODIUM CHLORIDE 0.9% 1,000 ML IV SCH ×2 (17:38→20:36)
--- NOTE | 2025-05-17 18:12 | Magnetic Resonance Report ---
EXAMINATION: MRI brain with and without and contrast CLINICAL HISTORY: Strokelike symptoms, slurred speech, off-balance history of stroke, history of colorectal cancer. PRIORS: Head CT today TECHNIQUE: Multiplanar multisequence imaging was obtained through the brain without and with the use of intravenous contrast. FINDINGS: Age-appropriate changes noted. No restricted diffusion to suggest an acute or subacute intraparenchymal infarction. No parenchymal edema, midline shift or ventriculomegaly. Right frontal encephalomalacia noted compatible with prior infarction. Ventricles normal in size and configuration. Cerebellum and brainstem unremarkable. Multiple scattered hyperintensities present throughout the deep white matter representing small vessel occlusive disease. No intra-axial or extra-axial hemorrhage. No hemosiderin on the gradient sequences. No enhancing mass on the contrast-enhanced sequences. No dural enhancement is identified. Moderate to severe mucosal thickening of the paranasal sinuses with sparing of the sphenoid sinus cysts. Corpus callosum unremarkable. Cerebellar tonsils are not low-lying. Globes are bilaterally symmetric. IMPRESSION: 1. No CT evidence of an acute or subacute infarction. 2. Right-sided chronic cerebral infarction noted. 3. Moderate to severe chronic beaulieu sinusitis. Electronically signed by Mary Jane Nobles 05-17-2025 6:12 PM
[2025-05-17] MEDS ORDERED: ONDANSETRON INJ 2 MG/ML 2 ML VIAL IV PRN (19:02)
[2025-05-17] MEDS ORDERED: ACETAMINOPHEN 325 MG TAB PO PRN (19:02)
[2025-05-17] MEDS ORDERED: CARBOHYDRATES FOR HYPOGLYCEMIA PO PRN (19:02)
[2025-05-17] MEDS ORDERED: GLUCOSE 10 TAB/TUBE PO PRN (19:02)
[2025-05-17] MEDS ORDERED: DEXTROSE 50% 50 ML SYRINGE IV PRN (19:02)
[2025-05-17] MEDS ORDERED: PHARMACIST DISCHARGE MED REC CONSULT PRN (19:02)
[2025-05-17] MEDS ORDERED: GLUCAGON FOR INJ 1 MG VIAL SQ PRN (19:02)
[2025-05-17] MEDS ORDERED: GLUCOSE 40% GEL 15 GM TUBE PO PRN (19:02)
[2025-05-17] MEDS: INSULIN ASPART PER UNIT CHARGE SC SCH (20:16)
[2025-05-17] MEDS: AMOXICILLIN/CLAVULANATE 875 MG TAB PO ONE (20:31)
[2025-05-17] MEDS: FENOFIBRATE NANOCRYSTALLIZED 145 MG TABLET PO SCH (21:23)
[2025-05-17] MEDS: CYANOCOBALAMIN (B-12) 500 MCG TABLET PO SCH (21:23)
[2025-05-17] MEDS: ATORVASTATIN 40 MG TAB PO SCH (21:23)
[2025-05-18 02:37] VITALS: O2SAT 98
[2025-05-18 06:15] LABS: Hematocrit (blood only) 27.4 % (42.0-52.0); Hemoglobin 9.7 g/dl (14.0-18.0); Immature Granulocytes # (auto) 0.01 K/uL (0.01-0.20); Immature Granulocytes % (auto) 0.3 %; Mean Corpuscular Hemoglobin 31.6 pg (25.0-34.0); Mean Corpuscular Volume 89.3 fL (80.0-100.0); Platelet Count 110 K/uL (130-400); RDW Standard Deviation 44.5 fL (36.4-46.3); Red Blood Count 3.07 M/uL (4.70-6.10); White Blood Count 4.00 K/ul (4.8-10.8)
[2025-05-18 06:31] LABS: Anion Gap 2.0 (3-11); Blood Urea Nitrogen 18.0 mg/dl (6-23); Calcium 8.0 mg/dl (8.6-10.3); Carbon Dioxide 24.0 mmol/L (21-32); Chloride 112.0 mmol/L (98-107); Cholesterol 92.0 mg/dl (0-200); Creatinine Clr Calc Pharmacy 93.7 ml/min; Glucose 100.0 mg/dl (70-99(Fasting)); HDL Cholesterol 25.0 mg/dl; Potassium 4.7 mmol/L (3.5-5.1); Sodium 138.0 mmol/L (136-145); Triglycerides 97.0 mg/dl (0-150)
[2025-05-18 08:30] LABS: Magnesium 1.8 mg/dl (1.7-2.4)
[2025-05-18] MEDS: MAGNESIUM OXIDE 400 MG TAB PO SCH (08:39)
[2025-05-18] MEDS: ADVANCED PROBIOTIC 625 MG CAPSULE PO SCH (08:39)
[2025-05-18] MEDS: CHOLECALCIFEROL 25 MCG (1000 UNITS) TAB PO SCH (08:39)
[2025-05-18] MEDS: CLOPIDOGREL BISULFATE 75 MG TAB PO SCH (08:40)
[2025-05-18] MEDS: TAMSULOSIN HCL 0.4 MG CAP PO SCH (08:41)
[2025-05-18] MEDS: ASPIRIN 81 MG ECTAB PO SCH (08:41)
[2025-05-18] MEDS: AMOXICILLIN/CLAVULANATE 875 MG TAB PO SCH (08:41)
[2025-05-18] MEDS: MULTIVITAMIN TAB PO SCH (08:41)
[2025-05-18 08:45] LABS: Hemoglobin A1C 5.4 % (4.5-5.6)
--- NOTE | 2025-05-18 09:34 | Pharmacy Report ---
- Date of Service May 18, 2025 - Pharmacy CVA/TIA Medication Review Medications to Prevent Stroke handout has been added to the patients discharge packet. Antiplatelet(s) * Clopidogrel 75mg PO QAM, ASA 81mg PO QAM Cholesterol * High intensity statin: atorvastatin 80 mg daily DVT Prophylaxis * SCD knee Therapeutic Anticoagulation * No history of Afib/Aflutter noted Type 2 Diabetes * Patient has T2DM and patient is prescribed tirzepatide outpatient * Patient has T2DM, a diabetes medication with proven CVD benefit will be deferred to their outpatient provider due to familiarity with risks/benefits of such therapies. "Medications to prevent stroke" handout has already been added to the patient's discharge packet, which instructs the patient to follow up with their outpatient provider to evaluate which diabetes medication with proven CVD benefit is best for them
[2025-05-18] MEDS: MAGNESIUM SULFATE / D5W 1 GM/100 ML BAG IV ONE (10:40)
[2025-05-18 11:49] VITALS: BP 130/74; RESP 18; TEMP 97.9
--- NOTE | 2025-05-18 14:00 | Discharge Summary ---
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 The slurred speech really started more on the morning of 05/17 as per his partner, Ayla. He denied any focal weakness or numbness anywhere else. He has also had several days of rhinorrhea, sinus pressure, puffiness of his eyes and cheeks and nasal congestion. Denies fevers or chills. His slurred speech was already resolving in the ED-he had a telestroke consult which did not recommend TNKase, but recommended aspirin in addition to his normal Plavix, and to obtain MRI of the brain. His CTA of the head and neck showed moderate atherosclerotic disease in the bilateral carotid artery bulbs but no high-grade stenosis, no LVO or aneurysm. It did also show moderate to severe pansinusitis sparing the sphenoid sinuses. He was found to have severely low magnesium at 0.9 and this was replaced with IV magnesium. He was admitted for stroke workup as well as severe hypomagnesemia and acute on chronic sinusitis #Dysarthria/TIA-did present with previous stroke in 2020 with similar symptoms and had a left parietal small ischemic stroke. He has a history of intracranial hemorrhage from trauma but has no residual issues from that. He is already on Plavix and high intensity statin and has a history of HTN and DM 2 as risk factors for stroke. CTA head and neck negative for LVO or significant stenoses. Dysarthria could be from acute CVA but also could be from severe hypomagnesemia as well as from acute on chronic sinusitis. MRI Brain negative for CVA or intracranial mass - Admit to telemetry unit for arrhythmia monitoring-no arrhythmias noted- consider 30 day cardiac event monitor after discharge - Continue aspirin and Plavix for TIA x 21 days then return to Plavix alone- caution with worsening thrombocytopenia from antineoplastic therapy - Continue high intensity statin, fenofibrate- lipid panel good - HgbA1c normal -echo with bubble study negative for thrombus - continue BP control with losartan and carvedilol -recommend following magnesium levels q1 week #Hypomagnesemia-severely low at 0.9 and chronically low since being on chemotherapy. He has chronic diarrhea from chemotherapy. He frequently has IV magnesium infusions at the cancer center. Gave 6 g of IV magnesium and had improvement to 1.8 -give mag sulfate IV 1 gram x 1 now -follow Mg level once weekly in office #Acute on chronic sinusitis-with chronic sinusitis noted on previous imaging but with 2 days of sinus pressure, eyelid edema, rhinorrhea and drainage from the eyes - Started Augmentin 875 mg p.o. twice daily x 10-day course given that he is immunosuppressed #Pancytopenia/recurrent metastatic colorectal cancer-hemoglobin low at 9.0 which is around his baseline, normocytic. With leukopenia and thrombocytopenia secondary to antineoplastic therapy as well - Follow CBC - Transfusional support as needed - Caution with antiplatelets if platelets -if fall below 50 would hold #HTN/HLD-BPs mildly elevated - continue home carvedilol and restart losartan - Continue statin and fenofibrate #CKD stage II/hyponatremia/hypocalcemia-creatinine around baseline at 1.2, sodium mildly low at 134. Calcium low but corrects to near normal when corrected for albumin - Follow BMP as an outpt #DM 2-he is no longer on metformin as it caused worsening of his diarrhea. He is only on the lowest dose of Mounjaro and follows with endocrinology. 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 The slurred speech really started more on the morning of 05/17 as per his partner, Ayla. He denied any focal weakness or numbness anywhere else. He has also had several days of rhinorrhea, sinus pressure, puffiness of his eyes and cheeks and nasal congestion. Denies fevers or chills. His slurred speech was already resolving in the ED-he had a telestroke consult which did not recommend TNKase, but recommended aspirin in addition to his normal Plavix, and to obtain MRI of the brain. His CTA of the head and neck showed moderate atherosclerotic disease in the bilateral carotid artery bulbs but no high-grade stenosis, no LVO or aneurysm. It did also show moderate to severe pansinusitis sparing the sphenoid sinuses. He was found to have severely low magnesium at 0.9 and this was replaced with IV magnesium. He will be admitted for stroke workup as well as severe hypomagnesemia and acute on chronic sinusitis Discharge Exam Constitutional WD/WN, vitals as above Eyes + eyelid abnormality (Lid edema bilaterally), + conjunctival abnormality (Erythematous OS), PERRL and EOM intact bilaterally; no nystagmus ENMT Nose: + nasal discharge (Copious clear rhinorrhea) Mouth: no oropharynx abnormality and no tongue abnormality Respiratory normal respiratory effort, lungs clear to auscultation Cardiovascular RRR, no murmur, no edema Gastrointestinal (Abdomen) normal bowel sounds, soft, nontender, no hepatosplenomegaly Neurologic PERRL, EOMI, accommodation nl, no face palsy, no dysarthria CN's II-XI intact bilaterally and moves all extremities; no focal motor deficits and not confused Speech / Cognition: normal speech Motor/Sensory: no tremor and no pronator drift Psychiatric A+Ox3, euthymic affect Discharge Plan Discharge Items Patient Disposition: Home - Self-Care Reason For Visit: Possible CVA,HYPOMAGNESEMIA Discharge Diagnosis: Hypomagnesemia Suspected TIA (transient ischemic attack/mini stroke) Acute on chronic sinusitis Condition on Discharge: Fair Activity: Resume your previous activity Non-emergency contact: Primary Care Provider and Oncologist Call non-emergency contact if: you have any medication questions and your symptoms worsen Follow-up/Referrals: Josué Morse MD [Primary Care Provider] - 05/27/25 1:30 pm (Please follow-up within 1-2 weeks) Diet: Carb Consistent or DM2 Addtl Attending Provider Instructions: You were admitted for workup for stroke. The brain MRI was negative but you may have had a mini stroke. Please stay on aspirin along with your Plavix for 3 weeks and then stop the aspirin. Your oncologist will need to keep an eye on your platelet count and if it goes less than 50, you should hold both your aspirin and your Plavix. More than likely, your slurred speech came about as a result of your severely low magnesium. This was replaced extensively and is now normalized. Please continue to follow this level with your oncologist and get replacement as needed. You were also treated for an acute sinus infection and you should remain on antibiotics for 9 more days after discharge with Augmentin twice a day. Pending Studies at Discharge: No Stand-Alone Forms: My [facility], Smoking Cessation, Medications to Prevent Stroke Medications and DC Order Prescriptions: New aspirin 81 mg Tablet,Delayed Release (Dr/Ec) 81 mg PO QAM Qty: 20 0RF amoxicillin-pot clavulanate 875-125 mg Tablet 1 tab PO BIDM Qty: 18 0RF Continued tamsulosin 0.4 mg capsule 0.4 mg PO QAM Qty: 90 3RF fenofibrate 160 mg tablet 160 mg PO PM Qty: 90 1RF clopidogrel 75 mg tablet 75 mg PO QAM Qty: 90 3RF Hold Instructions: Resume on 06/07/24. carvedilol 6.25 mg tablet 6.25 mg PO BID Qty: 60 5RF Hold Instructions: low BP atorvastatin 80 mg tablet 80 mg PO QPM Qty: 90 1RF losartan 100 mg tablet 100 mg PO QAM Qty: 90 3RF Mounjaro 5 mg/0.5 mL pen injector 5 mg SUBCUT Q7D Qty: 2 3RF cyanocobalamin (vitamin B-12) 1,000 mcg capsule 1,000 mcg PO HS Qty: 100 (DME) pen needle, diabetic [BD Flavia 2nd Gen Pen Needle] 32 gauge x 5/32" needle See Rx Instructions .Route Qty: 50 0RF Rx Instructions: Once weekly for ozempic (DME) lancets [BD Ultra Fine Lancets] 33 gauge misc See Rx Instructions .ROUTE .MEDSUPPLY Qty: 100 Rx Instructions: testing 2 X daily (DME) Contour Next Test Strips Strip See Rx Instructions .ROUTE .MEDSUPPLY Qty: 10 Rx Instructions: 2Xd multivitamin Capsule 1 cap PO QAM omega 6-swr-dum-fish oil [Fish Oil] 1,000 mg (120 mg-180 mg) capsule 2 cap PO QAM magnesium oxide 400 mg magnesium capsule 800 mg PO QAM B Complex 1 tab PO DAILY cholecalciferol (vitamin D3) 25 mcg (1,000 unit) Capsule 25 mcg PO DAILY cinnamon bark [Cinnamon] 500 mg Capsule 500 mg PO DAILY Probiotic 3 billion cell Capsule 3,000 mmu cells PO DAILY Rx Instructions: administer with a meal vitamin E acetate 100 unit Capsule 100 unit PO DAILY Discharge Orders: Discharge Order (Routine); Ordered 05/18/25 Ordered By: Angie Desir Admission Data Admit Date/Time: 05/17/25 16:33 Attending Provider: Angie Desir Admit Provider: Angie Desir Primary Care Provider: Josué Morse V. Other Providers: Angie Desir Other Interventions: Discharge Summary Assessment (RN) Last Done: 05/18/25 15:09 Hospital Stay Data Consultations 05/17/25 14:55 ED Decision to Admit Stat Diagnostic Imagining Performed 05/17/25 13:55 CT head/brain wo con Stat 05/17/25 13:58 CT angio head w con Stat CT angio neck with con Stat 05/17/25 15:29 MRI Brain [MR brain wo/w con] Stat Pending Results Patient Have Any Pending Studies at Discharge: No Discharge Instructions Given to Patient (Per Discharging Provider) You were admitted for workup for stroke. The brain MRI was negative but you may have had a mini stroke. Please stay on aspirin along with your Plavix for 3 weeks and then stop the aspirin. Your oncologist will need to keep an eye on your platelet count and if it goes less than 50, you should hold both your aspirin and your Plavix. More than likely, your slurred speech came about as a result of your severely low magnesium. This was replaced extensively and is now normalized. Please continue to follow this level with your oncologist and get replacement as needed. You were also treated for an acute sinus infection and you should remain on antibiotics for 9 more days after discharge with Augmentin twice a day. Total Time Total Time Spent Total Time Spent (In Minutes): 35 min Total Time Includes: Examination of the Patient, Discharge Planning and Medi cation Reconciliation Coding Level of Care Code 87908 INP/OBS DISCH >30 MIN Diagnoses Dysarthria R47.1 Hypomagnesemia E83.42 Chronic kidney disease N18.9 Diabetes mellitus type 2 with complications E11.8
--- NOTE | 2025-05-18 14:12 | Communication Note ---
Date of Service: May 18, 2025 By CMS guidelines, a determination that the admission or continued stay is not medically necessary has been made by a member of the UR committee and a physician for this hospital stay, therefore a Code 44 will be completed and the Inpatient admission will be changed to outpatient.
[2025-05-18] MEDS ORDERED: STROKE PATIENT DISCHARGE STA (14:13)
--- NOTE | 2025-05-18 14:31 | XCELERA ---
[id number]
[2025-05-18 15:11] VITALS: PULSE 83
--- NOTE | 2025-05-20 14:19 | Pharmacy Report ---
Pharmacist Stroke Counseling - Date of Service May 20, 2025 - Scope: Pharmacy has been consulted to provide medication discharge counseling for this patient admitted with transient ischemic attack as per the Pharmacist Discharge Counseling for Stroke Patients Protocol. - Medications on Discharge: Home Medications Medication Instructions Recorded Confirmed multivitamin 1 cap PO QAM 06/05/18 05/17/25 cyanocobalamin (vitamin B-12) 1,000 mcg PO HS #100 caps 04/01/19 05/17/25 1,000 mcg capsule omega 6-uar-wpq-fish oil 1,000 mg 2 cap PO QAM 04/21/19 05/17/25 (120 mg-180 mg) capsule (Fish Oil) blood sugar diagnostic (Contour #10 ea 11/25/20 05/14/25 Next Test Strips) lancets 33 gauge (BD Ultra Fine #100 ea 11/25/20 05/14/25 Lancets) B Complex 1 tab PO DAILY 05/17/25 05/17/25 cholecalciferol (vitamin D3) 25 25 mcg PO DAILY 05/17/25 05/17/25 mcg (1,000 unit) capsule cinnamon bark 500 mg capsule 500 mg PO DAILY 05/17/25 05/17/25 (Cinnamon) lactobacillus combination no.4 3 3,000 mmu cells PO DAILY 05/17/25 05/17/25 billion cell capsule (Probiotic) magnesium oxide 800 mg PO QAM 05/17/25 05/17/25 vitamin E acetate 100 unit capsule 100 unit PO DAILY 05/17/25 05/17/25 New Rx's Medication Instructions Recorded pen needle, diabetic 32 gauge x #50 ea 12/05/22 532" (BD Flavia 2nd Gen Pen Needle) tamsulosin 0.4 mg capsule 0.4 mg PO QAM #90 caps 07/16/24 fenofibrate 160 mg tablet 160 mg PO PM #90 tabs 01/27/25 clopidogrel 75 mg tablet 75 mg PO QAM #90 tabs 02/01/25 carvedilol 6.25 mg tablet 6.25 mg PO BID #60 tabs 02/25/25 atorvastatin 80 mg tablet 80 mg PO QPM #90 tabs 03/30/25 losartan 100 mg tablet 100 mg PO QAM #90 tabs 04/20/25 tirzepatide 5 mg/0.5 mL 5 mg (0.5 mL) subcut Q7D #2 mL 04/20/25 subcutaneous pen injector (Rain) amoxicillin 875 mg-potassium 1 tab PO BIDM #18 tabs 05/18/25 clavulanate 125 mg tablet aspirin 81 mg tablet,delayed 81 mg PO QAM #20 tabs 05/18/25 release - Action: The above medications, specifically ones for stroke treatment/prophylaxis, have been reviewed in detail with the patient and/or patient independent sales representative(s) prior to discharge. This includes indication, common adverse reactions, drug interactions, and medication administration. Medication counseling has been employed using the teach-back method to ensure understanding. - Outcome: The patient and/or patient independent sales representative(s) have demonstrated understanding of the medications. Additional comments: - Patient confirms that medications were picked up from the pharmacy - Aware that aspirin will only be continued for 21 days total - No concerns expressed by patient Thank you for allowing pharmacy to be involved in the care of this patient. Please call [phone] with any additional questions
--- NOTE | 2025-05-22 14:38 | Electrocardiogram Report ---
Test Reason : Blood Pressure : */* mmHG Vent. Rate : 81 BPM Atrial Rate : 81 BPM P-R Int : 160 ms QRS Dur : 80 ms QT Int : 350 ms P-R-T Axes : 23 44 28 degrees QTcB Int : 406 ms Normal sinus rhythm Septal infarct , age undetermined Abnormal ECG When compared with ECG of 20-May-2024 12:48, Septal infarct is now Present Confirmed by Danis López ([id number]) on 05/22/2025 2:38:18 PM Referred By: REFERRED SELF Confirmed By: Danis López
== END 2025-05-18 15:20 | disposition home or self-care (01) ==
LOC: ED 13:44 → INTOOBSV 16:33 → EDINP 16:33 → 2S 19:03